=== PATIENT | male | born 1950 | race Caucasian/White ===

== ENCOUNTER 2016-06-10 19:48 | Inpatient (IN) | payer MEDICARE, BC ==
[2016-06-10 20:30] LABS: Hematocrit 31 % (42-52); Hemoglobin 9.3 g/dl (14.0-18.0); Mean Corpuscular HGB Conc 30 g/dl (31-36); Mean Corpuscular Hemoglobin 27 pg (27-31); Mean Corpuscular Volume 89 fL (80-94); Mean Platelet Volume 7 um3 (7.4-10.4); Red Blood Count 3.47 10^6/ul (4.0-5.4); Red Cell Distribution Width 18 % (10.5-15); White Blood Count 8.1 10^3/ul (3.5-10.8)
[2016-06-10 20:41] LABS: ALT < 3 U/L (7-52); AST 6 U/L (13-39); Albumin 2.6 g/dL (3.2-5.2); Alkaline Phosphatase 64 U/L (34-104); Anion Gap 1 mmol/L (2-11); BUN/Creatinine Ratio 9.9 (8-20); Blood Urea Nitrogen 11 mg/dL (6-24); CO2 Carbon Dioxide 36 mmol/L (22-32); Calcium 8.2 mg/dL (8.6-10.3); Chloride 107 mmol/L (101-111); Creatine Kinase 14 U/L (10-223); EGFR Non-African American 66.1 (>60); Globulin 3.1 g/dL (2-4); Glucose 128 mg/dL (70-100); Potassium 3.9 mmol/L (3.5-5.0); Sodium 144 mmol/L (133-145); Total Protein 5.7 g/dL (6.4-8.9)
[2016-06-10 20:46] LABS: Troponin I 0.04 ng/mL (<0.04)
--- NOTE | 2016-06-10 21:01 | RAD ---
INDICATION: Altered mental status COMPARISON: None. TECHNIQUE: Contiguous axial sections of the brain were obtained from the skull base to the vertex without contrast. FINDINGS: The ventricles, cisterns and sulci are within normal limits. There is mild periventricular and subcortical white matter hypoattenuation most consistent with chronic microvascular disease. Otherwise the aguilar-white matter differentiation is adequately maintained and there is no sulcal effacement. No significant focal abnormality or mass effect is present. There is no evidence for intracranial hemorrhage. Coarse atherosclerotic calcifications at the petrous carotid arteries and left greater than right vertebral arteries are noted. No significant focal osseous abnormality is present. The visualized portion of the paranasal sinuses and mastoid air cells appear clear. IMPRESSION: Appearance of chronic microvascular disease as described above without acute intracranial abnormality.
--- NOTE | 2016-06-10 22:04 | RAD ---
INDICATION: Altered mental status COMPARISON: Chest x-ray dated May 14, 2016 TECHNIQUE: Single AP portable view of the chest was obtained. FINDINGS: Image quality is compromised due to the relative inferiority of a portable chest x-ray. There is elevation of the right hemidiaphragm. Linear density at the mid-level right lung is most consistent with fluid in the major fissure. There is [id number] cardiomegaly. Dilated loops of air-filled colon are seen beneath the diaphragm measuring up to 6.7 cm in diameter. IMPRESSION: Persistent cardiomegaly with signs of pulmonary edema as well as dilated loops of colon beneath the right hemidiaphragm measuring 6.7 cm in diameter.
--- NOTE | 2016-06-10 22:41 | RAD ---
INDICATION: Dilated loops of bowel partially visualized on same-day chest x-ray. COMPARISON: Similar examination dated May 10, 2016 TECHNIQUE: 5 views the abdomen were obtained. FINDINGS: Again seen are dilated loops of air-filled small and large bowel. The large bowel measures up to 9.2 cm in diameter while the small bowel measures up to 3.2 cm in diameter. Given differences in technique there does not appear to be significant change when compared to the most recent abdominal x-ray. Incidental note is made of a Karlee filter overlying the location of the IVC. IMPRESSION: AGAIN SEEN ARE DILATED AIR-FILLED LOOPS OF BOWEL WITH NO SUBSTANTIAL CHANGE IN APPEARANCE WHEN COMPARED TO THE MAY 10, 2016 ABDOMEN X-RAY.
[2016-06-10 23:43] LABS: Urine Bacteria Absent (Absent); Urine Bilirubin Negative (Negative); Urine Glucose 1+(50 mg/dL) (Negative); Urine Nitrite Negative (Negative)
[2016-06-11 00:15] LABS: FIO2 40
[2016-06-11 00:23] LABS: PCO2 Arterial 117 mmHg (35-45)
[2016-06-11] MEDS ORDERED: oxyCODONE/Acetamin 5/325 MG* TAB PO PRN ×2 (01:27→09:08)
[2016-06-11] MEDS ORDERED: CEFAZOLIN 2 GM IVPB SCH (01:30)
[2016-06-11] MEDS ORDERED: Enoxaparin(*) 150 MG/ML 1 ML SYRINGE SUBCUT SCH (02:00)
[2016-06-11 02:04] LABS: PCO2 Arterial 87 mmHg (35-45)
[2016-06-11] MEDS: NS 0.9% 1000 ML* 1,000 ML IV SCH ×2 (03:14→14:46)
[2016-06-11] MEDS ORDERED: NS 0.9% 500 ML* 500 ML IV ONE ×2 (03:30→04:00)
--- NOTE | 2016-06-11 04:12 | HP ---
HISTORY AND PHYSICAL: DATE OF ADMISSION: 06/10/16 CHIEF COMPLAINT: Altered mental status. HISTORY OF PRESENT ILLNESS: The patient is a 65-year-old gentleman who was apparently found confused at his [facility] facility. He was sent over, unable to give us any history whatsoever. In the ED, the patient was evaluated and found to have CO2 narcosis with a CO2 level of 117 and placed on BiPAP. PAST MEDICAL HISTORY: The patient has a past medical history significant for a recent admission for MSSA epidural abscess, status post L1 to S1 decompressive laminectomy with abscess evacuation on 05/06/16, MSSA septic left ankle hardware , status post irrigation, debridement, and hardware removal on 05/17/16, MSSA sepsis, traumatic rhabdomyolysis, NSTEMI, a-fib with rapid ventricular response , left upper extremity cephalic vein DVT, PICC associated, urinary retention, generalized deconditioning, a long complicated hospitalization between January 2002 and May 2002 where the patient had hypothermia and treated for hypovolemic shock. The patient was discharged to rehab facility and then had a cardiac arrest for which he had a "stent." Hepatitis B, alcoholic liver cirrhosis, rhabdomyolysis, decubitus ulcer, DVTs, peripheral edema, hypertension , GERD, BPH, Karlee filter. PAST SURGICAL HISTORY: Significant for: 1. Left ankle surgery, status post ORIF. 2. Back injury with impaired gait. 3. Inguinal hernia repair. ALLERGIES: He has no known drug allergies. FAMILY HISTORY: Brother had heart disease with a pacemaker. Two sisters and one other brother alive and well. SOCIAL HISTORY: The patient is unemployed, currently at [facility] facility. He used to live at [place]. He used to drink heavily before 2001. CURRENT MEDICATIONS: Are as follows: 1. Flagyl 500 mg 3 times day. 2. Cephazolin 2 g IV q.8 hours. 3. Warfarin 10 mg daily. 4. Thiamine 100 mg daily. 5. Flomax 0.4 mg daily. 6. Potassium chloride 40 mEq daily. 7. Percocet 5/325 two tabs every 4 hours as needed. 8. Omeprazole 20 mg daily. 9. Metoprolol succinate 200 mg daily with meal. 10. Magnesium oxide 800 mg daily. 11. Lisinopril 10 mg daily. 12. Lactobacillus 1 capsule twice daily. 13. Folic acid 1 mg daily. 14. Lovenox 120 mg subcu q.12. 15. Docusate 100 mg twice daily. 16. Diltiazem 360 mg daily. 17. Digoxin 0.125 mg daily. 18. Benztropine 1 mg daily. REVIEW OF SYSTEMS: Unable to obtain from the patient because of his altered mental status. PHYSICAL EXAMINATION GENERAL: Confused patient, sitting up in bed, in no acute distress. VITAL SIGNS: Heart rate 82 beats per minute, respiratory rate 12 breaths per minute, pulse ox 91%, temperature 99.9. HEENT: Normocephalic, atraumatic. Pupils equal, round, and reactive. He has BiPAP mask on right now. CHEST: Decreased breath sounds bilaterally. CARDIOVASCULAR: S1 and S2 appreciated. ABDOMINAL EXAM: Positive bowel sounds in all 4 quadrants. Soft, nontender, and nondistended. No hepatosplenomegaly. EXTREMITIES: No cyanosis or clubbing. +2 pulses bilaterally. NEURO: He is lethargic on BiPAP. SKIN: No rashes or abnormalities. LABORATORY DATA: INR 2.07, white count 8.1, hemoglobin 9.3, hematocrit 31, platelets 399. Sodium is 144, potassium 3.9, chloride 107, CO2 36, BUN 11, creatinine 1.11, glucose 128, troponin of 0.04. UA +3 wbc's, +3 rbc's, +2 leukocyte esterase. EKG shows normal sinus rhythm at 82 beats per minute, normal axis, no acute ST-T wave changes. Brain CT shows appearance of chronic microvascular disease as described though without acute intracranial abnormality. Chest x-ray interpreted by Radiology as persistent cardiomegaly with signs of pulmonary edema as well as dilated loops of colon beneath the right hemidiaphragm measuring up to 6.7 cm in diameter. Abdominal x-ray, again seen dilated loops of bowel with no substantial change when compared to abdominal x-ray. ASSESSMENT AND PLAN: 1. Hypercapnic respiratory failure. The patient was placed on BiPAP. He is a DNR/DNI, so we will not intubate, but hopefully he will recover from this and do well afterwards. 2. History of DVT as well as A-fib. Continue Coumadin. INR is therapeutic. 3. Hypertension, adequate control. Continue current regimen. 4. History of MSSA infections as noted above. Continue cefazolin and metronidazole. 5. BPH, stable. Continue Flomax. 6. DVT prophylaxis. He is on Coumadin. 7. Fluids, electrolytes, and nutrition: N.p.o., with normal saline as the patient is more alert and awake. 8. The patient is do not resuscitate. TIME SPENT: Over 80 minutes was spent on this H and P; more than 45 minutes was spent in direct [id number] contact with the patient in evaluation, physical exam, counseling, and coordination of care. CC: [place] [id number]/[facility] #: [id number] MTDD
[2016-06-11] MEDS ORDERED: Heparin VIAL(*) 5000 UNITS/ML VIAL (FIVE THOUSAND) SUBCUT SCH (06:00)
[2016-06-11] MEDS ORDERED: Lactobacillus Acidophilu (GG)* 1 CAP CAP PO SCH (06:00)
[2016-06-11] MEDS ORDERED: ceFAZolin 2 GM PREMIX (*) 2 GM/50 ML BAG IVPB SCH (06:00)
[2016-06-11 07:03] LABS: BUN/Creatinine Ratio 8.8 (8-20); Calcium 7.9 mg/dL (8.6-10.3); EGFR African American 56.1 (>60); EGFR Non-African American 43.6 (>60)
[2016-06-11 07:14] LABS: Troponin I 0.05 ng/mL (<0.04)
[2016-06-11] MEDS ORDERED: Omeprazole CAP* 20 MG PO SCH (07:30)
[2016-06-11] MEDS: Potassium Chlor TAB* 20 MEQ TAB.ER PO SCH (08:56)
[2016-06-11] MEDS: Magnesium Oxide TAB* 400 MG PO SCH (08:56)
[2016-06-11] MEDS: Lisinopril TAB* 10 MG PO SCH (08:56)
[2016-06-11] MEDS: Metoprolol Succinate XL TAB* 200 MG TAB.XL PO SCH (08:56)
[2016-06-11] MEDS: Benztropine TAB* 1 MG PO SCH (08:58)
[2016-06-11] MEDS: Diltiazem CD CAP* 180 MG PO SCH (08:58)
[2016-06-11] MEDS: Docusate CAP* 100 MG PO SCH ×2 (08:58→20:32)
[2016-06-11] MEDS: Thiamine TAB* 100 MG TAB PO SCH (08:58)
[2016-06-11] MEDS: Folic Acid TAB* 1 MG PO SCH (08:58)
[2016-06-11] MEDS ORDERED: metroNIDAZOLE TAB* 250 MG PO SCH (09:00)
[2016-06-11] MEDS: Acetaminophen TAB* 325 MG PO PRN ×2 (09:26→17:20)
--- NOTE | 2016-06-11 12:42 | CONS ---
CONSULTATION REPORT: DATE OF CONSULT: 06/11/16 REQUESTING PHYSICIAN: Dr. Burks. CONSULTING SERVICE: Infectious Disease. REASON FOR CONSULT: Encephalopathy. IMPRESSION: 1. Recent admission with lumbar spine epidural abscess and left ankle hardware infection and septic ankle, status post I and D of both locations, with persistent bowel and bladder dysfunction, lower extremity weakness, has been on Ancef at [facility], now with inability to arouse for 24 hours. He had BiPAP overnight and has had improvement. I do not think there is a component of his original infection or new infection that is contributing to his mental change given that he has had improvement with BiPAP and diuresis, seems more to be a primary respiratory issue and hypercapnia. 2. Lumbar epidural abscess, status post debridement with persistent weakness and bowel and bladder dysfunction. 3. Left ankle history of open reduction internal fixation and now Staphylococcus aureus infection of the hardware, osteomyelitis, septic ankle incision that was healing. 4. Cirrhosis. 5. Deep venous thrombosis. 6. History of Karlee filter. 7. Hypoalbuminemia. 8. Acute kidney injury. RECOMMENDATION: 1. Agree with Ancef 2 g but we will decrease to every 12 hours given his GFR of 50. 2. Discontinue Flagyl. 3. Continue monitoring of his abnormal blood test results. He is about day 35 out of 56 of IV antibiotics for his epidural abscess. HISTORY OF PRESENT ILLNESS: This is a 65-year-old man with cirrhosis, history of left ankle fixation after a fracture, admitted with altered mental status. He recently in mid April developed lumbar spine epidural abscess due Staph aureus that was drained by Dr. Yoo that is healing well. His sutures are out and the incision is intact. He was also found to have a left ankle infection at that time and had incision and debridement done by Dr. Brar, removal of some of the hardware the incision is intact, sutures are out, and he denies pain there. He continues to require a Briggs catheter and is incontinent of stool. He does participate in physical therapy at the long term and is moving his legs more, he thinks. He is tolerating the antibiotics well by a PICC line. He has had no fevers, chills, or sweats. He has been eating well in the long term. He is here now but cannot give much of the recent history , because of the mental status change, which was provided instead by his sister and then from review of the medical records. He was found unresponsive at [facility]. He had been afebrile in the days leading up to the event. He was brought here last night and was found to have a white count of 8, bicarb of 36 on a BMP and then on blood gas, the CO2 was 117. He had BiPAP. His pH is increased from 7.09 to 7.2 and the bicarb decreased to 87. He is off BiPAP now this morning, he is awake, oriented, and answering questions and has no complaints. He does not recall the events leading up to his admission. PAST MEDICAL HISTORY: 1. Cirrhosis due to alcoholic liver disease. 2. Left ankle fracture, status post open reduction internal fixation. 3. Lumbar spine MSSA epidural abscess, status post decompression and debridement. 4. Left ankle hardware and septic joint infection, status post incision and debridement, removal of some of the hardware. 5. Atrial fibrillation with rapid ventricular response. 6. Coronary artery disease, history of non-ST elevation NM. 7. History of rhabdomyolysis. 8. Left arm DVT associated with a PICC. 9. Urinary retention requiring Briggs. 10. Hypertension. 11. Gastroesophageal reflux disease. 12. BPH. 13. History of IVC filter. 14. History of inguinal hernia repair. MEDICATIONS: 1. Tylenol. 2. Benztropine. 3. Diltiazem. 4. Digoxin. 5. Folic acid. 6. Lisinopril. 7. Metoprolol. 8. Potassium. 9. Thiamine. 10. Warfarin. 11. Cefazolin 2 g every 8 hours. 12. Flagyl 500 mg by mouth every 12 hours. 13. Oxycodone. ALLERGIES: No known drug allergies. FAMILY HISTORY: No recurrent infections. SOCIAL HISTORY: He has been living at [facility]. He has no travel or sick contacts. REVIEW OF SYSTEMS: All negative except as noted above. PHYSICAL EXAM: Vital Signs: Temperature is 37, heart rate 70, respiratory rate 14, blood pressure 112/54, O2 sat 100% on 5 L. General: He is awake and in no distress. Neurologically, he is oriented x3. Follows all commands. His extremity strength is 3/5 in the quad, tibialis anterior and gastrocnemius bilaterally. There is no lower extremity clonus bilaterally. Neck: Supple without nuchal rigidity. HEENT: There is no conjunctival hemorrhage. He has poor dentition. There are no oral lesions. Neck: Neck is supple without nuchal rigidity. Lymph Nodes: There is no cervical, supraclavicular, inguinal , axillary, or epitrochlear lymphadenopathy. Heart: Regular rate and rhythm without murmurs, rubs, or gallops. Lungs: Clear to auscultation bilaterally. Abdomen: Mildly distended, soft. There are bowel sounds present. There is no rebound or tenderness. Musculoskeletal: There is no spine tenderness to palpation. The lumbar spine incision is intact. The left ankle, there is diffuse edema without erythema. The medial incision is intact. There is no pain with range of motion of the ankle. Skin: There is no rash or splinter hemorrhages. LABORATORY DATA: White blood cell count 8, hemoglobin 9, platelets 399. Creatinine is 1.6 up from 1.1. Troponin is 0.05. Please see impressions and recommendations as outlined above. Thanks for asking me to see Mr. Molina in consultation. [id number]/[facility] #: [id number] MTDD
[2016-06-11] MEDS: Warfarin TAB(*) 1 MG PO SCH (17:20)
[2016-06-11] MEDS: Warfarin TAB(*) 6 MG PO SCH (17:20)
--- NOTE | 2016-06-11 17:34 | PN ---
Subjective Date of Service: 06/11/16 Interval History: HOSPITALIST PROGRESS NOTE Patient seen and examined at bedside. He feels better this AM. Released from BiPAP, alert and awake. Doesn't remember exactly what happened, but as per SNF papers he was noted to be hypoxemic earlier yesterday and it progressed during the day even with supplemental O2, complicated by altered MS. Family History: Unchanged from Admission Social History: Unchanged from Admission Past Medical History: Unchanged from Admission Objective Active Medications: Acetaminophen (Tylenol Tab*) 650 mg PO Q4H PRN PRN Reason: FEVER/PAIN Last Admin: 06/11/16 17:20 Dose: 650 mg Benztropine Mesylate (Cogentin Tab*) 1 mg PO DAILY [facility] Last Admin: 06/11/16 08:58 Dose: 1 mg Digoxin (Lanoxin Tab*) 0.125 mg PO 1700 [facility] Diltiazem HCl (Cardizem Cd Cap*) 360 mg PO DAILY [facility] Last Admin: 06/11/16 08:58 Dose: 360 mg Docusate Sodium (Colace Cap*) 100 mg PO BID [facility] Last Admin: 06/11/16 08:58 Dose: 100 mg Folic Acid (Folvite Tab*) 1 mg PO DAILY [facility] Last Admin: 06/11/16 08:58 Dose: 1 mg Heparin Sodium (Porcine) (Heparin Flush Picc/Ml/Cvc(*)) 1 - 3 ml FLUSH 0600, 1800 J [facility] PRN Reason: Protocol Last Admin: 06/11/16 06:23 Dose: 1 ml Sodium Chloride (Ns 0.9% 1000 Ml*) 1,000 mls @ 100 mls/hr IV PER RATE [facility] Last Admin: 06/11/16 14:46 Dose: 100 mls/hr Cefazolin Sodium/Dextrose (Kefzol Premix(*)) 2 gm in 50 mls @ 100 mls/hr IVPB Q12HR [facility] Lisinopril (Prinivil Tab*) 10 mg PO DAILY [facility] Last Admin: 06/11/16 08:56 Dose: 10 mg Magnesium Oxide (Magox 400 Tab*) 800 mg PO DAILY [facility] Last Admin: 06/11/16 08:56 Dose: 800 mg Metoprolol Succinate (Toprol Xl Tab*) 200 mg PO DAILY WITH MEAL [facility] Last Admin: 06/11/16 08:56 Dose: 200 mg Oxycodone/Acetaminophen (Percocet 5/325 Tab*) 2 tab PO Q4H PRN PRN Reason: PAIN Pharmacy Profile Note (Coumadin Daily Reminder*) 1 note FOLLOW UP 1700 [facility] Last Admin: 06/11/16 17:20 Dose: 1 note Potassium Chloride (Klor Con Er Tab*) 40 meq PO DAILY WITH MEAL [facility] Last Admin: 06/11/16 08:56 Dose: 40 meq Tamsulosin HCl (Flomax Cap*) 0.4 mg PO BEDTIME [facility] Thiamine HCl (Vitamin B-1 Tab*) 100 mg PO DAILY [facility] Last Admin: 06/11/16 08:58 Dose: 100 mg Warfarin Sodium (Coumadin Tab(*)) 6 mg PO DAILY@1700 [facility] PRN Reason: Protocol Last Admin: 06/11/16 17:20 Dose: 6 mg Warfarin Sodium (Coumadin Tab(*)) 1 mg PO DAILY@1700 [facility] Last Admin: 06/11/16 17:20 Dose: 1 mg Vital Signs 06/11/16 06/11/16 06/11/16 15:00 15:19 16:00 Temperature 99.3 F Pulse Rate 75 71 Respiratory 16 15 Rate Blood Pressure 114/60 90/48 (mmHg) O2 Sat by Pulse 94 95 Oximetry Oxygen Devices in Use Now: Simple Face Mask Appearance: Elderly gentleman lying in bed in [facility]. Eyes: No Scleral Icterus Ears/Nose/Mouth/Throat: Mucous Membranes Moist Neck: Trachea Midline Respiratory: Symmetrical Chest Expansion and Respiratory Effort, Clear to Auscultation Cardiovascular: RRR - Normal S1 and S2 Abdominal: NL Sounds; No Tenderness; No Distention Extremities: - - Bilateral LE edema especially on the left, but reports redness is much improved. Neurological: - - AAOx 2 (self and place), SHINE Lines/Tubes/Other Access: Clean, Dry and Intact PICC Line - RUE Nutrition: Taking PO's Result Diagrams: 06/10/16 20:15 06/11/16 06:30 Assess/Plan/Problems-Billing Assessment: Mr. Molina is a 65yo M with a complex PMH of HTN, prior DVT s/p IVC filter, cirrhosis, BPH, GERD, HBV, recent admission for Afib with RVR, NSTEMI, rhabdomyolisis, MSSA lumbar spine epidural abscess, left ankle hardware infection with septic ankle, LUE cephalic vein DVT, urinary retention, admitted with altered MS secondary to hypercapnic respiratory failure. - Patient Problems (1) Altered mental state Comment: - Secondary to hypercapnia. - Initial ABG showed pH 7.09 and CO2 117. After BiPAP it was 7.22 and 87 with improvement of his MS. - Close to baseline this AM. (2) Hypercapnic respiratory failure Comment: - Etiology unclear at this time. - Differential includes fluid overload, infection, oversedation with narcotics. - He does significant peripheral edema and CxR showed signs of pulmonary edema and improved with BiPAP. May pursue gentle diuresis if his BP allows. - Will request ID input re: his infection, but he's been on Cefazolin for more than 30 days. Will panculture and monitor. - Narcotics are less likely as he has not taken a lot at [facility]. (3) DVT (deep venous thrombosis) Comment: - INR is 2.07 - continue Warfarin. (4) Afib Comment: - Continue digoxin and Diltiazem. (5) DVT prophylaxis Comment: - Warfarin. (6) DNR (do not resuscitate) Status and Disposition: Inpatient. Brother and [id number] updated at bedside.
[2016-06-11] MEDS: Digoxin TAB* 0.125 MG PO SCH (18:22)
[2016-06-11] MEDS: ceFAZolin 2 GM PREMIX (*) 2 GM/50 ML BAG IVPB SCH (20:31)
[2016-06-11] MEDS: Tamsulosin CAP* 0.4 MG PO SCH (20:32)
[2016-06-12] MEDS: NS 0.9% 1000 ML* 1,000 ML IV SCH ×3 (00:20→17:17)
[2016-06-12 06:12] LABS: Hematocrit 27 % (42-52); Hemoglobin 8.1 g/dl (14.0-18.0); Mean Corpuscular HGB Conc 31 g/dl (31-36); Mean Corpuscular Hemoglobin 27 pg (27-31); Mean Corpuscular Volume 87 fL (80-94); Mean Platelet Volume 7 um3 (7.4-10.4); Red Blood Count 3.06 10^6/ul (4.0-5.4); Red Cell Distribution Width 18 % (10.5-15); White Blood Count 6.2 10^3/ul (3.5-10.8)
[2016-06-12 06:26] LABS: BUN/Creatinine Ratio 14.3 (8-20); Calcium 7.8 mg/dL (8.6-10.3); EGFR African American 55.3 (>60); Potassium 3.6 mmol/L (3.5-5.0)
[2016-06-12] MEDS ORDERED: Enoxaparin(*) 150 MG/ML 1 ML SYRINGE SUBCUT ONE (08:00)
[2016-06-12] MEDS: Metoprolol Succinate XL TAB* 200 MG TAB.XL PO SCH (08:26)
[2016-06-12] MEDS: Potassium Chlor TAB* 20 MEQ TAB.ER PO SCH (08:26)
[2016-06-12] MEDS: Magnesium Oxide TAB* 400 MG PO SCH (08:29)
[2016-06-12] MEDS: Benztropine TAB* 1 MG PO SCH (08:29)
[2016-06-12] MEDS: Lisinopril TAB* 10 MG PO SCH (08:29)
[2016-06-12] MEDS: Folic Acid TAB* 1 MG PO SCH (08:29)
[2016-06-12] MEDS: Docusate CAP* 100 MG PO SCH ×2 (08:29→20:56)
[2016-06-12] MEDS: Thiamine TAB* 100 MG TAB PO SCH (08:29)
[2016-06-12] MEDS: Diltiazem CD CAP* 180 MG PO SCH (08:30)
[2016-06-12] MEDS: ceFAZolin 2 GM PREMIX (*) 2 GM/50 ML BAG IVPB SCH ×2 (08:32→20:53)
--- NOTE | 2016-06-12 14:11 | PN ---
Subjective Date of Service: 06/12/16 Interval History: HOSPITALIST PROGRESS NOTE Patient seen and examined at bedside. He feels better today, offers no complaints. Pleasantly confused. Family History: Unchanged from Admission Social History: Unchanged from Admission Past Medical History: Unchanged from Admission Objective Active Medications: Acetaminophen (Tylenol Tab*) 650 mg PO Q4H PRN PRN Reason: FEVER/PAIN Last Admin: 06/11/16 17:20 Dose: 650 mg Benztropine Mesylate (Cogentin Tab*) 1 mg PO DAILY [facility] Last Admin: 06/12/16 08:29 Dose: 1 mg Digoxin (Lanoxin Tab*) 0.125 mg PO 1700 [facility] Last Admin: 06/11/16 18:22 Dose: 0.125 mg Diltiazem HCl (Cardizem Cd Cap*) 360 mg PO DAILY [facility] Last Admin: 06/12/16 08:30 Dose: 360 mg Docusate Sodium (Colace Cap*) 100 mg PO BID [facility] Last Admin: 06/12/16 08:29 Dose: 100 mg Folic Acid (Folvite Tab*) 1 mg PO DAILY [facility] Last Admin: 06/12/16 08:29 Dose: 1 mg Heparin Sodium (Porcine) (Heparin Flush Picc/Ml/Cvc(*)) 1 - 3 ml FLUSH 0600, 1800 [facility] PRN Reason: Protocol Last Admin: 06/12/16 05:56 Dose: 1 ml Sodium Chloride (Ns 0.9% 1000 Ml*) 1,000 mls @ 100 mls/hr IV PER RATE [facility] Last Admin: 06/12/16 06:55 Dose: 100 mls/hr Cefazolin Sodium/Dextrose (Kefzol Premix(*)) 2 gm in 50 mls @ 100 mls/hr IVPB Q12HR [facility] Last Admin: 06/12/16 08:32 Dose: 100 mls/hr Magnesium Oxide (Magox 400 Tab*) 800 mg PO DAILY [facility] Last Admin: 06/12/16 08:29 Dose: 800 mg Metoprolol Succinate (Toprol Xl Tab*) 200 mg PO DAILY WITH MEAL [facility] Last Admin: 06/12/16 08:26 Dose: 200 mg Oxycodone/Acetaminophen (Percocet 5/325 Tab*) 2 tab PO Q4H PRN PRN Reason: PAIN Pharmacy Profile Note (Coumadin Daily Reminder*) 1 note FOLLOW UP 1700 [facility] Last Admin: 06/11/16 17:20 Dose: 1 note Potassium Chloride (Klor Con Er Tab*) 40 meq PO DAILY WITH MEAL [facility] Last Admin: 06/12/16 08:26 Dose: 40 meq Tamsulosin HCl (Flomax Cap*) 0.4 mg PO BEDTIME [facility] Last Admin: 06/11/16 20:32 Dose: 0.4 mg Thiamine HCl (Vitamin B-1 Tab*) 100 mg PO DAILY [facility] Last Admin: 06/12/16 08:29 Dose: 100 mg Warfarin Sodium (Coumadin Tab(*)) 6 mg PO DAILY@1700 [facility] PRN Reason: Protocol Last Admin: 06/11/16 17:20 Dose: 6 mg Warfarin Sodium (Coumadin Tab(*)) 1 mg PO DAILY@1700 [facility] Last Admin: 06/11/16 17:20 Dose: 1 mg Vital Signs 06/12/16 06/12/16 06/12/16 06:56 08:00 11:36 Temperature 99.3 F 98.3 F Pulse Rate 80 75 Respiratory 18 18 18 Rate Blood Pressure 108/59 141/54 (mmHg) O2 Sat by Pulse 100 98 Oximetry Oxygen Devices in Use Now: Nasal Cannula Appearance: Elderly gentleman sitting up in bed in [facility]. Eyes: No Scleral Icterus Ears/Nose/Mouth/Throat: Mucous Membranes Moist Neck: Trachea Midline Respiratory: Symmetrical Chest Expansion and Respiratory Effort, Clear to Auscultation Cardiovascular: - - Normal S1 and S2, irregular Abdominal: NL Sounds; No Tenderness; No Distention Extremities: - - Bilateral LE edema Neurological: - - AAOx2 (self and place) Lines/Tubes/Other Access: Clean, Dry and Intact PICC Line Nutrition: Taking PO's Result Diagrams: 06/12/16 05:50 06/12/16 05:50 Assess/Plan/Problems-Billing Assessment: Mr. Molina is a 65yo M with a complex PMH of HTN, prior DVT s/p IVC filter, cirrhosis, BPH, GERD, HBV, recent admission for Afib with RVR, NSTEMI, rhabdomyolisis, MSSA lumbar spine epidural abscess, left ankle hardware infection with septic ankle, LUE cephalic vein DVT, urinary retention, admitted with altered MS secondary to hypercapnic respiratory failure. - Patient Problems (1) OTILIA (acute kidney injury) Comment: - Creatinine trending up, but no clear source. Does not appear to be obstructed, infection seems to be controlled, but urine output is sluggish. - IVF. (2) Altered mental state Comment: - Secondary to hypercapnia. - Initial ABG showed pH 7.09 and CO2 117. After BiPAP it was 7.22 and 87 with improvement of his MS. - At baseline. (3) Hypercapnic respiratory failure Comment: - Etiology unclear at this time. - Differential includes fluid overload, infection, oversedation with narcotics. - He does have significant peripheral edema, CxR showed signs of pulmonary edema and improved with BiPAP. - ID feels his infection is controlled, but concerned with dilated bowel loops - check CT abd/pelvis with PO contrast only. (4) DVT (deep venous thrombosis) Comment: - INR is 1.52 - will give on dose of Lovenox and continue Warfarin. (5) Afib Comment: - Continue digoxin and Diltiazem. (6) DVT prophylaxis Comment: - Warfarin/Lovenox. (7) DNR (do not resuscitate) Status and Disposition: Inpatient.
[2016-06-12] MEDS: Warfarin TAB(*) 6 MG PO SCH (17:18)
[2016-06-12] MEDS: Warfarin TAB(*) 1 MG PO SCH (17:18)
[2016-06-12] MEDS: Digoxin TAB* 0.125 MG PO SCH (17:19)
--- NOTE | 2016-06-12 18:28 | RAD ---
Indication: Evaluate for small bowel obstruction. CT of the abdomen and pelvis was performed without IV contrast administration. Oral contrast was administered. Coronal and sagittal reconstructed images were obtained. The lung bases demonstrate bilateral pleural effusions. Right lower lobe atelectasis is noted. The heart demonstrates no pericardial effusion. Liver is normal in size. There are no focal lesions or intrahepatic duct dilatation although evaluation is limited due to lack of IV contrast. Spleen is normal in size. No adrenal masses are noted. The kidneys demonstrates no hydronephrosis. The gallbladder appears to be partially contracted. There are likely gallstones noted. Pancreas demonstrates no mass or pancreatic duct dilatation. Small bowel demonstrates no abnormal dilatation. CT of the pelvis demonstrates markedly distended colon. Stool is noted in the right colon however fluid is present throughout the remainder of the colon. The exact mural thickness of the colon is not well demonstrated especially in the rectum and sigmoid. Small bowel demonstrates no abnormal dilatation. There is unlikely to be small bowel obstruction noted. The stomach is collapsed. Inferior vena cava filter is in place. Aorta demonstrates no evidence of aneurysmal dilatation. Diffuse edema is noted in the subcutaneous tissue. Urinary bladder is partially collapsed. IMPRESSION: THE SMALL BOWEL DOES NOT APPEAR TO BE ABNORMALLY DILATED. NO ZONE OF TRANSITION IS NOTED. THERE IS DILATATION OF THE LARGE COLON EXTENDING FROM THE RIGHT COLON TO THE RECTUM. FLUID IS NOTED IN THE RECTUM WELL THE SIGMOID COLON. THE PROSTATE IS PROMINENT IN SIZE. THE COLONIC DILATATION IS INCREASED RELATIVE TO PREVIOUS EXAM OF MAY 03, 2016. DIRECT INSPECTION OF THE RECTUM MAY BE INDICATED. LIKELY CHOLELITHIASIS IS NOTED. INFERIOR VENA CAVA FILTER IS IN PLACE.
[2016-06-12] MEDS: Tamsulosin CAP* 0.4 MG PO SCH (20:56)
--- NOTE | 2016-06-12 21:19 | PN ---
Progress Note - Progress Note SOAP: Subjective: DOS: 06/12/16 CC: encephalopathy HPI: 65 year old man with L spine ESTRADA and septic left ankle admitted with encephalopathy likely due to hypercapnia, slowly improving MS. He can't give much history but his sister feels he is slowly continuing to improve. He denies pain, fever, rash, or diarrhea. No abd pain, + flatus, had loose stool today. Objective: [] Vital Signs Temp 37.5 C 06/12/16 15:09 Pulse 74 06/12/16 15:09 Resp 28 06/12/16 15:09 BP 134/58 06/12/16 15:09 Pulse Ox 98 06/12/16 15:09 Intake & Output 06/12/16 06/12/16 06/13/16 06:59 18:59 06:59 Intake Total 1921 390 Output Total 300 300 Balance 1621 90 Weight 269 lb 6.478 oz Intake: IV Fluids 1507 NS (0.9%) 1507 IVPB 114 NS (0.9%) 114 Oral 300 390 Output: Urine 0 Briggs 300 300 Other: # Bowel Movements 0 Gen:NAD Neuro: awake, answers questions, follows commands HEENT:PERRL, MMM NEck:Supple Heart:RRR no murmur Lungs:CTA BL Abd:+BS distended, non tender, soft Skin: no rash MSK: L ankle edema non tender Laboratory Results - last 24 hr 06/12/16 06/12/16 06/12/16 05:50 05:50 05:50 WBC 6.2 RBC 3.06 L Hgb 8.1 L Hct 27 L MCV 87 MCH 27 MCHC 31 RDW 18 H Plt Count 238 MPV 7 L Neut % (Auto) 74.2 Lymph % (Auto) 12.3 L [place] % (Auto) 9.9 H Eos % (Auto) 1.7 Baso % (Auto) 1.9 Absolute Neuts (auto) 4.6 Absolute Lymphs (auto) 0.8 L Absolute Monos (auto) 0.6 Absolute Eos (auto) 0.1 Absolute Basos (auto) 0.1 Absolute Nucleated RBC 0 Nucleated RBC % 0 INR (Anticoag Therapy) 1.52 H Sodium 143 Potassium 3.6 Chloride 111 Carbon Dioxide 28 Anion Gap 4 BUN 23 Creatinine 1.61 H Est GFR ( Amer) 55.3 Est GFR (Non-Af Amer) 43.0 BUN/Creatinine Ratio 14.3 Glucose 94 Calcium 7.8 L Assessment: 1. encephaolpathy, improving 2. abd distension with dilated loops of bowel on KUB ?partial obstruction 3. L spine epidural abscess 4. L septic ankle with hardware infection 5. cirrhosis Plan: 1. continue ancef 2 gm IV Q12hrs as perviously planned; extermination supervisor abx until ankle hardware removed 2. CT A/P with PO contrast Discussed with Dr Burks
[2016-06-13] MEDS: NS 0.9% 1000 ML* 1,000 ML IV SCH ×2 (04:50→07:55)
[2016-06-13 05:53] LABS: Hematocrit 27 % (42-52); Hemoglobin 8.3 g/dl (14.0-18.0); Mean Corpuscular HGB Conc 31 g/dl (31-36); Mean Corpuscular Hemoglobin 27 pg (27-31); Mean Corpuscular Volume 85 fL (80-94); Mean Platelet Volume 7 um3 (7.4-10.4); Red Blood Count 3.11 10^6/ul (4.0-5.4); Red Cell Distribution Width 17 % (10.5-15); White Blood Count 5.1 10^3/ul (3.5-10.8)
[2016-06-13 06:04] LABS: BUN/Creatinine Ratio 22.7 (8-20); Calcium 7.9 mg/dL (8.6-10.3); EGFR African American 85.9 (>60); EGFR Non-African American 66.8 (>60); Potassium 3.5 mmol/L (3.5-5.0)
[2016-06-13] MEDS: ceFAZolin 2 GM PREMIX (*) 2 GM/50 ML BAG IVPB SCH ×2 (07:55→21:20)
[2016-06-13] MEDS: Acetaminophen TAB* 325 MG PO PRN (07:59)
[2016-06-13] MEDS: Magnesium Oxide TAB* 400 MG PO SCH (08:00)
[2016-06-13] MEDS: Benztropine TAB* 1 MG PO SCH (08:00)
[2016-06-13] MEDS: Metoprolol Succinate XL TAB* 200 MG TAB.XL PO SCH (08:00)
[2016-06-13] MEDS: Potassium Chlor TAB* 20 MEQ TAB.ER PO SCH (08:00)
[2016-06-13] MEDS: Folic Acid TAB* 1 MG PO SCH (08:01)
[2016-06-13] MEDS: Diltiazem CD CAP* 180 MG PO SCH (08:01)
[2016-06-13] MEDS: Docusate CAP* 100 MG PO SCH ×2 (08:01→21:16)
[2016-06-13] MEDS: Thiamine TAB* 100 MG TAB PO SCH (08:01)
[2016-06-13] MEDS ORDERED: Warfarin TAB(*) 7.5 MG PO SCH ×2 (17:08→18:15)
--- NOTE | 2016-06-13 17:11 | PN ---
Subjective Date of Service: 06/13/16 Interval History: He denies pain, offers no c/o. Family History: Unchanged from Admission Social History: Unchanged from Admission Past Medical History: Unchanged from Admission Objective Active Medications: Acetaminophen (Tylenol Tab*) 650 mg PO Q4H PRN PRN Reason: FEVER/PAIN Last Admin: 06/13/16 07:59 Dose: 650 mg Benztropine Mesylate (Cogentin Tab*) 1 mg PO DAILY COUNT INCLUDES THE [facility] Last Admin: 06/13/16 08:00 Dose: 1 mg Digoxin (Lanoxin Tab*) 0.125 mg PO 1700 COUNT INCLUDES THE [facility] Last Admin: 06/12/16 17:19 Dose: 0.125 mg Diltiazem HCl (Cardizem Cd Cap*) 360 mg PO DAILY COUNT INCLUDES THE [facility] Last Admin: 06/13/16 08:01 Dose: 360 mg Docusate Sodium (Colace Cap*) 100 mg PO BID COUNT INCLUDES THE [facility] Last Admin: 06/13/16 08:01 Dose: 100 mg Folic Acid (Folvite Tab*) 1 mg PO DAILY COUNT INCLUDES THE [facility] Last Admin: 06/13/16 08:01 Dose: 1 mg Heparin Sodium (Porcine) (Heparin Flush Picc/Ml/Cvc(*)) 1 - 3 ml FLUSH 0600, 1800 COUNT INCLUDES THE [facility] PRN Reason: Protocol Last Admin: 06/13/16 05:39 Dose: 1 ml Cefazolin Sodium/Dextrose (Kefzol Premix(*)) 2 gm in 50 mls @ 100 mls/hr IVPB Q12HR COUNT INCLUDES THE [facility] Last Admin: 06/13/16 07:55 Dose: 100 mls/hr Magnesium Oxide (Magox 400 Tab*) 800 mg PO DAILY COUNT INCLUDES THE [facility] Last Admin: 06/13/16 08:00 Dose: 800 mg Metoprolol Succinate (Toprol Xl Tab*) 200 mg PO DAILY WITH MEAL COUNT INCLUDES THE [facility] Last Admin: 06/13/16 08:00 Dose: 200 mg Oxycodone/Acetaminophen (Percocet 5/325 Tab*) 2 tab PO Q4H PRN PRN Reason: PAIN Pharmacy Profile Note (Coumadin Daily Reminder*) 1 note FOLLOW UP 1700 COUNT INCLUDES THE [facility] Last Admin: 06/12/16 17:18 Dose: 1 note Potassium Chloride (Klor Con Er Tab*) 40 meq PO DAILY WITH MEAL COUNT INCLUDES THE [facility] Last Admin: 06/13/16 08:00 Dose: 40 meq Tamsulosin HCl (Flomax Cap*) 0.4 mg PO BEDTIME COUNT INCLUDES THE [facility] Last Admin: 06/12/16 20:56 Dose: 0.4 mg Thiamine HCl (Vitamin B-1 Tab*) 100 mg PO DAILY COUNT INCLUDES THE [facility] Last Admin: 06/13/16 08:01 Dose: 100 mg Warfarin Sodium (Coumadin Tab(*)) 6 mg PO DAILY@1700 COUNT INCLUDES THE [facility] PRN Reason: Protocol Last Admin: 06/12/16 17:18 Dose: 6 mg Warfarin Sodium (Coumadin Tab(*)) 1 mg PO DAILY@1700 COUNT INCLUDES THE [facility] Last Admin: 06/12/16 17:18 Dose: 1 mg Vital Signs 06/12/16 06/12/16 06/12/16 19:50 20:00 23:22 Temperature 98.7 F 98.3 F Pulse Rate 85 80 Respiratory 20 18 18 Rate Blood Pressure 159/63 134/51 (mmHg) O2 Sat by Pulse 96 97 Oximetry 06/13/16 06/13/16 06/13/16 04:08 07:32 08:00 Temperature 98.8 F 99.5 F Pulse Rate 74 100 Respiratory 18 20 20 Rate Blood Pressure 140/51 149/57 (mmHg) O2 Sat by Pulse 97 97 Oximetry 06/13/16 12:13 Temperature Pulse Rate 71 Respiratory 22 Rate Blood Pressure (mmHg) O2 Sat by Pulse 91 Oximetry Oxygen Devices in Use Now: None Appearance: Alert, partly up in bed. In good spirits. Looks comfortable. Eyes: No Scleral Icterus Respiratory: Symmetrical Chest Expansion and Respiratory Effort, Clear to Auscultation, Clear to Percussion Cardiovascular: NL Sounds; No Murmurs; No JVD, RRR, No Edema, - Extremities: No Edema, No Clubbing, Cyanosis, - Skin: No Nodules or Sclerosis, - - Surgical scar medial L ankle, sl red Neurological: Alert and Oriented x 3, NL Sensation Result Diagrams: 06/13/16 05:42 06/13/16 05:42 Additional Lab and Data: Lab Results 06/10/16 06/10/16 06/10/16 Range/Units 20:15 20:15 20:15 WBC 8.1 (3.5-10.8) 10^3/ul RBC 3.47 L (4.0-5.4) 10^6/ul Hgb 9.3 L (14.0-18.0) g/dl Hct 31 L (42-52) % MCV 89 (80-94) fL MCH 27 (27-31) pg MCHC 30 L (31-36) g/dl RDW 18 H (10.5-15) % Plt Count 399 (150-450) 10^3/ul MPV 7 L (7.4-10.4) um3 Neut % (Auto) 73.0 (38-83) % Lymph % (Auto) 14.2 L (25-47) % [place] % (Auto) 11.4 H (1-9) % Eos % (Auto) 0.2 (0-6) % Baso % (Auto) 1.2 (0-2) % Absolute Neuts (auto) 5.9 (1.5-7.7) 10^3/ul Absolute Lymphs (auto) 1.1 (1.0-4.8) 10^3/ul Absolute Monos (auto) 0.9 H (0-0.8) 10^3/ul Absolute Eos (auto) 0 (0-0.6) 10^3/ul Absolute Basos (auto) 0.1 (0-0.2) 10^3/ul Absolute Nucleated RBC 0.01 10^3/ul Nucleated RBC % 0.1 INR (Anticoag Therapy) (0.89-1.11) Sodium 144 (133-145) mmol/L Potassium 3.9 (3.5-5.0) mmol/L Chloride 107 (101-111) mmol/L Carbon Dioxide 36 H (22-32) mmol/L Anion Gap 1 L (2-11) mmol/L BUN 11 (6-24) mg/dL Creatinine 1.11 (0.67-1.17) mg/dL Est GFR ( Amer) 85.0 (>60) Est GFR (Non-Af Amer) 66.1 (>60) BUN/Creatinine Ratio 9.9 (8-20) Glucose 128 H (70-100) mg/dL Lactic Acid 0.7 (0.5-2.0) mmol/L Calcium 8.2 L (8.6-10.3) mg/dL Total Bilirubin 0.20 (0.2-1.0) mg/dL AST 6 L (13-39) U/L ALT < 3 L (7-52) U/L Alkaline Phosphatase 64 (34-104) U/L Ammonia (16-53) mol/L Total Creatine Kinase 14 (10-223) U/L Troponin I 0.04 H* (<0.04) ng/mL Total Protein 5.7 L (6.4-8.9) g/dL Albumin 2.6 L (3.2-5.2) g/dL Globulin 3.1 (2-4) g/dL Albumin/Globulin Ratio 0.8 L (1-3) 06/10/16 06/10/16 Range/Units 20:15 20:15 WBC (3.5-10.8) 10^3/ul RBC (4.0-5.4) 10^6/ul Hgb (14.0-18.0) g/dl Hct (42-52) % MCV (80-94) fL MCH (27-31) pg MCHC (31-36) g/dl RDW (10.5-15) % Plt Count (150-450) 10^3/ul MPV (7.4-10.4) um3 Neut % (Auto) (38-83) % Lymph % (Auto) (25-47) % [place] % (Auto) (1-9) % Eos % (Auto) (0-6) % Baso % (Auto) (0-2) % Absolute Neuts (auto) (1.5-7.7) 10^3/ul Absolute Lymphs (auto) (1.0-4.8) 10^3/ul Absolute Monos (auto) (0-0.8) 10^3/ul Absolute Eos (auto) (0-0.6) 10^3/ul Absolute Basos (auto) (0-0.2) 10^3/ul Absolute Nucleated RBC 10^3/ul Nucleated RBC % INR (Anticoag Therapy) 2.07 H (0.89-1.11) Sodium (133-145) mmol/L Potassium (3.5-5.0) mmol/L Chloride (101-111) mmol/L Carbon Dioxide (22-32) mmol/L Anion Gap (2-11) mmol/L BUN (6-24) mg/dL Creatinine (0.67-1.17) mg/dL Est GFR ( Amer) (>60) Est GFR (Non-Af Amer) (>60) BUN/Creatinine Ratio (8-20) Glucose (70-100) mg/dL Lactic Acid (0.5-2.0) mmol/L Calcium (8.6-10.3) mg/dL Total Bilirubin (0.2-1.0) mg/dL AST (13-39) U/L ALT (7-52) U/L Alkaline Phosphatase (34-104) U/L Ammonia 64 H (16-53) mol/L Total Creatine Kinase (10-223) U/L Troponin I (<0.04) ng/mL Total Protein (6.4-8.9) g/dL Albumin (3.2-5.2) g/dL Globulin (2-4) g/dL Albumin/Globulin Ratio (1-3) Microbiology and Other Data: Microbiology 06/11/16 09:40 Aerobic Blood Culture - Preliminary Blood Line No Growth Day 1 Anaerobic Blood Culture - Preliminary No Growth Day 1 06/11/16 09:40 Aerobic Blood Culture - Preliminary Blood Line No Growth Day 1 Anaerobic Blood Culture - Preliminary No Growth Day 1 Assess/Plan/Problems-Billing Assessment: Mr. Molina is a 65yo M with a complex PMH of HTN, prior DVT s/p IVC filter, cirrhosis, BPH, GERD, HBV, recent admission for Afib with RVR, NSTEMI, rhabdomyolisis, MSSA lumbar spine epidural abscess, left ankle hardware infection with septic ankle, LUE cephalic vein DVT, urinary retention, admitted with altered MS secondary to hypercapnic respiratory failure. - Patient Problems (1) Altered mental state Current Visit: Yes Status: Acute Code(s): R41.82 - ALTERED MENTAL STATUS, UNSPECIFIED SNOMED Code(s): 345892191 Comment: - Secondary to hypercapnia, etilogy uncertain. - Initial ABG showed pH 7.09 and CO2 117. After BiPAP it was 7.22 and 87 with improvement of his MS. - At baseline. (2) Atrial fibrillation with rapid ventricular response Current Visit: No Status: Acute Priority: High Code(s): I48.91 - UNSPECIFIED ATRIAL FIBRILLATION SNOMED Code(s): 034872465808340 Comment: : rate control with PO Cardizem, off GTT 05/11/16. : continue home metoprolol XL 200 mg daily : continue digoxin : J Fredo, MD neurosurgery authorized anticoagulation : TTE: structurally normal heart with preserved EF 60-65%. increase warfarin to 7.5 mg start 5 PM 06/13/16. (3) OTILIA (acute kidney injury) Current Visit: Yes Status: Resolved Code(s): N17.9 - ACUTE KIDNEY FAILURE, UNSPECIFIED SNOMED Code(s): 91801371 Comment: Resolved. Status and Disposition: Inpatient.
[2016-06-13] MEDS: Digoxin TAB* 0.125 MG PO SCH (18:10)
[2016-06-13] MEDS: Warfarin TAB(*) 6 MG PO SCH (18:20)
[2016-06-13] MEDS: Warfarin TAB(*) 1 MG PO SCH (18:20)
--- NOTE | 2016-06-13 18:51 | CONS ---
CONSULTATION REPORT: DATE OF CONSULT: 06/13/16 REASON FOR CONSULT: Abdominal distention and colonic distention on CT scan. NARRATIVE: Mr. Molina is a complicated 65-year-old gentleman who had a recent hospitalization in April 2016 for an epidural abscess requiring decompressive laminectomy and prolonged antibiotics, sepsis from left ankle infection who presented 3 days ago from the nursing facility for altered mental status. His presentation in the emergency room was notable for a marked CO2 level of 117. He was placed on BiPAP and has improved. His mental status has improved. It was noted that his abdomen seemed more distended. For that reason , he underwent an abdominal CT scan, which I did review showing moderate dilation of the colon diffusely from the cecum to the rectum. The colonic wall appeared uninflamed. There was no obvious obstruction and the small bowel appeared grossly normal. The images were compared to a CT scan from April 2016, which were similar although perhaps slightly more colonic distention is noted. The patient currently denies any abdominal pain. He states that his bowel function has been relatively normal. He has been eating without nausea or vomiting. PAST MEDICAL HISTORY: Includes epidural abscess requiring surgery and prolonged antibiotics, ankle surgery, and infection. History of urinary retention, prior history of coronary artery disease, and DVT. He also presumably was told of alcoholic liver disease many years ago, although states that he has been abstinent and has had no clinical evidence of liver decompensation in the last several years. MEDICATIONS: His preadmission medicines were: 1. Flagyl. 2. Cephazolin. 3. Warfarin. 4. Thiamine. 5. Flomax. 6. Percocet. 7. Omeprazole. 8. Metoprolol. 9. Magnesium oxide. 10. Lisinopril. 11. Lactobacillus. 12. Lovenox. 13. Docusate. 14. Diltiazem. 15. Digoxin. REVIEW OF SYSTEMS: There is no report of GI bleeding, nausea or vomiting. He apparently has been eating well. PHYSICAL EXAM: He is an elderly gentleman lying in bed, looking older than stated age but in no acute distress, appearing comfortable. Temperature is 99.5 , blood pressure is 149/57, heart rate is 71 and regular. He appears clinically euvolemic. He is anicteric. There are no telangiectasis. Cardiac exam reveals distant heart sounds but regular rhythm. Abdomen is slightly distended with slight increase in tympany. There is no rebound or guarding. There is no tenderness. There is no organomegaly. Bowel sounds are normoactive. On rectal exam, there is liquid brown fluid like stool in the rectal vault. There is no lesion. It is guaiac negative. DIAGNOSTIC STUDIES/LAB DATA: Data includes a white count of 5.1, hemoglobin of 8.3. Creatinine of 1.1, alk phos is 64, AST is 6, ALT is less than 3, albumin of 2.6. IMPRESSION: Elderly gentleman with a prolonged hospitalization for sepsis from an epidural abscess requiring laminectomy, left ankle surgery for an infection who has been on prolonged antibiotics who presented with encephalopathy from hypercapnia which has improved. He has had a CT scan showing some mild-to- moderate colonic dilation, which looks similar to April 2016. His presentation is most consistent with colonic pseudoobstruction, which likely is multifactorial given his immobility, his recent prolonged hospitalization. Perhaps there is some neurologic involvement given his laminectomy surgery and urinary retention history. I do not believe there is a mechanical obstruction causing this. I would proceed with electrolyte replacement maintaining a bowel regimen that he is currently on. Of note, he did have a negative C. difficile on this admission. He is relatively asymptomatic despite this, so I do not think any aggressive means such as decompressive colonoscopy would need to take place. [id number]/[facility] #: [id number] ZURI
[2016-06-13] MEDS: Tamsulosin CAP* 0.4 MG PO SCH (21:17)
[2016-06-14 07:03] LABS: Hematocrit 26 % (42-52); Hemoglobin 8.2 g/dl (14.0-18.0); Mean Corpuscular HGB Conc 31 g/dl (31-36); Mean Corpuscular Hemoglobin 27 pg (27-31); Mean Corpuscular Volume 86 fL (80-94); Mean Platelet Volume 7 um3 (7.4-10.4); Red Blood Count 3.07 10^6/ul (4.0-5.4); Red Cell Distribution Width 17 % (10.5-15); White Blood Count 5.3 10^3/ul (3.5-10.8)
[2016-06-14] MEDS: Potassium Chlor TAB* 20 MEQ TAB.ER PO SCH (07:49)
[2016-06-14] MEDS: Benztropine TAB* 1 MG PO SCH (07:50)
[2016-06-14] MEDS: Metoprolol Succinate XL TAB* 200 MG TAB.XL PO SCH (07:50)
[2016-06-14] MEDS: Docusate CAP* 100 MG PO SCH (07:50)
[2016-06-14] MEDS: Thiamine TAB* 100 MG TAB PO SCH (07:50)
[2016-06-14] MEDS: Diltiazem CD CAP* 180 MG PO SCH (07:50)
[2016-06-14] MEDS: Magnesium Oxide TAB* 400 MG PO SCH (07:50)
[2016-06-14] MEDS: Folic Acid TAB* 1 MG PO SCH (07:50)
[2016-06-14] MEDS: ceFAZolin 2 GM PREMIX (*) 2 GM/50 ML BAG IVPB SCH (07:53)
[2016-06-14 07:58] VITALS: BP 143/63
--- NOTE | 2016-06-14 11:36 | DCNOTE ---
Subjective Date of Service: 06/14/16 Interval History: Patient offers no c/o. Family History: Unchanged from Admission Social History: Unchanged from Admission Past Medical History: Unchanged from Admission Objective Active Medications: Acetaminophen (Tylenol Tab*) 650 mg PO Q4H PRN PRN Reason: FEVER/PAIN Last Admin: 06/13/16 07:59 Dose: 650 mg Benztropine Mesylate (Cogentin Tab*) 1 mg PO DAILY COUNTS INCLUDE 234 BEDS AT THE [facility] Last Admin: 06/14/16 07:50 Dose: 1 mg Digoxin (Lanoxin Tab*) 0.125 mg PO 1700 COUNTS INCLUDE 234 BEDS AT THE [facility] Last Admin: 06/13/16 18:10 Dose: 0.125 mg Diltiazem HCl (Cardizem Cd Cap*) 360 mg PO DAILY COUNTS INCLUDE 234 BEDS AT THE [facility] Last Admin: 06/14/16 07:50 Dose: 360 mg Docusate Sodium (Colace Cap*) 100 mg PO BID COUNTS INCLUDE 234 BEDS AT THE [facility] Last Admin: 06/14/16 07:50 Dose: Not Given Folic Acid (Folvite Tab*) 1 mg PO DAILY COUNTS INCLUDE 234 BEDS AT THE [facility] Last Admin: 06/14/16 07:50 Dose: 1 mg Heparin Sodium (Porcine) (Heparin Flush Picc/Ml/Cvc(*)) 1 - 3 ml FLUSH 0600, 1800 COUNTS INCLUDE 234 BEDS AT THE [facility] PRN Reason: Protocol Last Admin: 06/14/16 06:45 Dose: 2 ml Cefazolin Sodium/Dextrose (Kefzol Premix(*)) 2 gm in 50 mls @ 100 mls/hr IVPB Q12HR COUNTS INCLUDE 234 BEDS AT THE [facility] Last Admin: 06/14/16 07:53 Dose: 100 mls/hr Magnesium Oxide (Magox 400 Tab*) 800 mg PO DAILY COUNTS INCLUDE 234 BEDS AT THE [facility] Last Admin: 06/14/16 07:50 Dose: 800 mg Metoprolol Succinate (Toprol Xl Tab*) 200 mg PO DAILY WITH MEAL COUNTS INCLUDE 234 BEDS AT THE [facility] Last Admin: 06/14/16 07:50 Dose: 200 mg Oxycodone/Acetaminophen (Percocet 5/325 Tab*) 2 tab PO Q4H PRN PRN Reason: PAIN Pharmacy Profile Note (Coumadin Daily Reminder*) 1 note FOLLOW UP 1700 COUNTS INCLUDE 234 BEDS AT THE [facility] Last Admin: 06/13/16 18:11 Dose: 1 note Potassium Chloride (Klor Con Er Tab*) 40 meq PO DAILY WITH MEAL COUNTS INCLUDE 234 BEDS AT THE [facility] Last Admin: 06/14/16 07:49 Dose: 40 meq Tamsulosin HCl (Flomax Cap*) 0.4 mg PO BEDTIME COUNTS INCLUDE 234 BEDS AT THE [facility] Last Admin: 06/13/16 21:17 Dose: 0.4 mg Thiamine HCl (Vitamin B-1 Tab*) 100 mg PO DAILY COUNTS INCLUDE 234 BEDS AT THE [facility] Last Admin: 06/14/16 07:50 Dose: 100 mg Warfarin Sodium (Coumadin Tab(*)) 7.5 mg PO 1700 COUNTS INCLUDE 234 BEDS AT THE [facility] PRN Reason: Protocol Last Admin: 06/13/16 18:10 Dose: 7.5 mg Vital Signs 06/13/16 06/13/16 06/13/16 12:13 15:59 18:10 Temperature 98.8 F Pulse Rate 71 63 72 Respiratory 22 18 Rate Blood Pressure 137/54 (mmHg) O2 Sat by Pulse 91 94 Oximetry 06/13/16 06/13/16 06/13/16 20:00 20:17 23:33 Temperature 99.3 F 98.5 F Pulse Rate 50 75 Respiratory 18 17 16 Rate Blood Pressure 172/61 143/60 (mmHg) O2 Sat by Pulse 93 93 Oximetry 06/14/16 06/14/16 07:52 08:38 Temperature 98.3 F Pulse Rate 98 Respiratory 17 20 Rate Blood Pressure 143/63 (mmHg) O2 Sat by Pulse 96 Oximetry Oxygen Devices in Use Now: None Appearance: Alert, supine in bed. In good spirits. Looks comfortable. Eyes: No Scleral Icterus Neck: NL Appearance and Movements; NL JVP, No Thyroid Enlargement, Masses Respiratory: Symmetrical Chest Expansion and Respiratory Effort, Clear to Auscultation, Clear to Percussion Cardiovascular: NL Sounds; No Murmurs; No JVD, RRR, No Edema, - Extremities: No Edema, No Clubbing, Cyanosis Skin: No Nodules or Sclerosis, - - L ankle surgical scar healing well. Lumbar wound dressed. Neurological: Alert and Oriented x 3, NL Sensation Result Diagrams: 06/14/16 06:30 06/13/16 05:42 Additional Lab and Data: Lab Results 06/10/16 06/10/16 06/10/16 Range/Units 20:15 20:15 20:15 WBC 8.1 (3.5-10.8) 10^3/ul RBC 3.47 L (4.0-5.4) 10^6/ul Hgb 9.3 L (14.0-18.0) g/dl Hct 31 L (42-52) % MCV 89 (80-94) fL MCH 27 (27-31) pg MCHC 30 L (31-36) g/dl RDW 18 H (10.5-15) % Plt Count 399 (150-450) 10^3/ul MPV 7 L (7.4-10.4) um3 Neut % (Auto) 73.0 (38-83) % Lymph % (Auto) 14.2 L (25-47) % Kendall % (Auto) 11.4 H (1-9) % Eos % (Auto) 0.2 (0-6) % Baso % (Auto) 1.2 (0-2) % Absolute Neuts (auto) 5.9 (1.5-7.7) 10^3/ul Absolute Lymphs (auto) 1.1 (1.0-4.8) 10^3/ul Absolute Monos (auto) 0.9 H (0-0.8) 10^3/ul Absolute Eos (auto) 0 (0-0.6) 10^3/ul Absolute Basos (auto) 0.1 (0-0.2) 10^3/ul Absolute Nucleated RBC 0.01 10^3/ul Nucleated RBC % 0.1 INR (Anticoag Therapy) (0.89-1.11) Sodium 144 (133-145) mmol/L Potassium 3.9 (3.5-5.0) mmol/L Chloride 107 (101-111) mmol/L Carbon Dioxide 36 H (22-32) mmol/L Anion Gap 1 L (2-11) mmol/L BUN 11 (6-24) mg/dL Creatinine 1.11 (0.67-1.17) mg/dL Est GFR ( Amer) 85.0 (>60) Est GFR (Non-Af Amer) 66.1 (>60) BUN/Creatinine Ratio 9.9 (8-20) Glucose 128 H (70-100) mg/dL Lactic Acid 0.7 (0.5-2.0) mmol/L Calcium 8.2 L (8.6-10.3) mg/dL Total Bilirubin 0.20 (0.2-1.0) mg/dL AST 6 L (13-39) U/L ALT < 3 L (7-52) U/L Alkaline Phosphatase 64 (34-104) U/L Ammonia (16-53) mol/L Total Creatine Kinase 14 (10-223) U/L Troponin I 0.04 H* (<0.04) ng/mL Total Protein 5.7 L (6.4-8.9) g/dL Albumin 2.6 L (3.2-5.2) g/dL Globulin 3.1 (2-4) g/dL Albumin/Globulin Ratio 0.8 L (1-3) 06/10/16 06/10/16 Range/Units 20:15 20:15 WBC (3.5-10.8) 10^3/ul RBC (4.0-5.4) 10^6/ul Hgb (14.0-18.0) g/dl Hct (42-52) % MCV (80-94) fL MCH (27-31) pg MCHC (31-36) g/dl RDW (10.5-15) % Plt Count (150-450) 10^3/ul MPV (7.4-10.4) um3 Neut % (Auto) (38-83) % Lymph % (Auto) (25-47) % Kendall % (Auto) (1-9) % Eos % (Auto) (0-6) % Baso % (Auto) (0-2) % Absolute Neuts (auto) (1.5-7.7) 10^3/ul Absolute Lymphs (auto) (1.0-4.8) 10^3/ul Absolute Monos (auto) (0-0.8) 10^3/ul Absolute Eos (auto) (0-0.6) 10^3/ul Absolute Basos (auto) (0-0.2) 10^3/ul Absolute Nucleated RBC 10^3/ul Nucleated RBC % INR (Anticoag Therapy) 2.07 H (0.89-1.11) Sodium (133-145) mmol/L Potassium (3.5-5.0) mmol/L Chloride (101-111) mmol/L Carbon Dioxide (22-32) mmol/L Anion Gap (2-11) mmol/L BUN (6-24) mg/dL Creatinine (0.67-1.17) mg/dL Est GFR ( Amer) (>60) Est GFR (Non-Af Amer) (>60) BUN/Creatinine Ratio (8-20) Glucose (70-100) mg/dL Lactic Acid (0.5-2.0) mmol/L Calcium (8.6-10.3) mg/dL Total Bilirubin (0.2-1.0) mg/dL AST (13-39) U/L ALT (7-52) U/L Alkaline Phosphatase (34-104) U/L Ammonia 64 H (16-53) mol/L Total Creatine Kinase (10-223) U/L Troponin I (<0.04) ng/mL Total Protein (6.4-8.9) g/dL Albumin (3.2-5.2) g/dL Globulin (2-4) g/dL Albumin/Globulin Ratio (1-3) Microbiology and Other Data: Microbiology 06/11/16 09:40 Aerobic Blood Culture - Preliminary Blood Line No Growth Day 1 Anaerobic Blood Culture - Preliminary No Growth Day 1 06/11/16 09:40 Aerobic Blood Culture - Preliminary Blood Line No Growth Day 1 Anaerobic Blood Culture - Preliminary No Growth Day 1 Assess/Plan/Problems-Billing Assessment: Mr. Molina is a 65yo M with a complex PMH of HTN, prior DVT s/p IVC filter, cirrhosis, BPH, GERD, HBV, recent admission for Afib with RVR, NSTEMI, rhabdomyolisis, MSSA lumbar spine epidural abscess, left ankle hardware infection with septic ankle, LUE cephalic vein DVT, urinary retention, admitted with altered MS secondary to hypercapnic respiratory failure. - Patient Problems (1) Altered mental state Current Visit: Yes Status: Acute Code(s): R41.82 - ALTERED MENTAL STATUS, UNSPECIFIED SNOMED Code(s): 923398385 Comment: - Secondary to hypercapnia, etilogy uncertain. - Initial ABG showed pH 7.09 and CO2 117. After BiPAP it was 7.22 and 87 with improvement of his MS. - At baseline. (2) Atrial fibrillation with rapid ventricular response Current Visit: No Status: Acute Priority: High Code(s): I48.91 - UNSPECIFIED ATRIAL FIBRILLATION SNOMED Code(s): 377388150584466 Comment: : rate control with PO Cardizem, off GTT 05/11/16. : continue home metoprolol XL 200 mg daily : continue digoxin : Elisabeth Yoo MD neurosurgery authorized anticoagulation : TTE: structurally normal heart with preserved EF 60-65%. INR mwf at first at [facility]. increase warfarin to 7.5 mg start 5 PM 06/13/16. (3) OTILIA (acute kidney injury) Current Visit: Yes Status: Resolved Code(s): N17.9 - ACUTE KIDNEY FAILURE, UNSPECIFIED SNOMED Code(s): 44107776 Comment: Resolved. (4) Osteomyelitis Current Visit: No Status: Acute Code(s): M86.9 - OSTEOMYELITIS, UNSPECIFIED SNOMED Code(s): 23379802 Comment: : LLE : septic arthitis L ankle hardware : s/p I&D by Dr. Brar 05/16/16 : IV cefazolin 2 gm q 8 hr based on improved renal fucntion. Status and Disposition: Discharge now to [facility]. Continue cefazolin and metronidazole. INR MWF until stable. Weekly CBC< BMP, CRP. . Fup Howard Pham.
--- NOTE | 2016-06-14 11:40 | PN ---
Progress Note - Progress Note Note: Time spent on discharge 50 minutes.
[2016-06-14] MEDS ORDERED: ceFAZolin 2 GM PREMIX (*) 2 GM/50 ML BAG IVPB SCH (12:00)
--- NOTE | 2016-06-14 14:45 | DS ---
CC: Dr. Edwards TRANSFER SUMMARY: DATE OF ADMISSION: 06/11/16 DATE OF DISCHARGE: 06/14/16 HOSPITAL COURSE: This is a 65-year-old man and was found confused at the nursing facility. He was unable to give any history. He was found to have hypercapnic respiratory failure, he was placed on BiPAP. The initial blood gases showed a pCO2 of 117, his O2 saturation was 95.6%, his pH was 7.09. A repeat blood gas about an hour and half later showed a pH has gone up to 7.22 and pCO2 has come d own to 87. He was able to be weaned off BiPAP quite well. He was on room oxygen by the time of discharge. He was mentating completely normally. His daughter came to visit and confirmed that he is completely b ack to his baseline. The etiology for this is not certain, possibly he is very sensitive to oxygen and oxygen was adminis tered and the flow rate had caused him to retain carbon dioxide. Possibly there was some medication mishap and he got sedated from medication, although that seems not very likely either. He did have some acute kidney injury, which resolved while he was here. His creatinine was 1.59 on admission, it was 1.10 on June 13. His cefazolin dose can go back to his usual dose of 2 g cody ry 8 hours because his renal function seems preserved at this time. I am recommending that oxygen use to be avoided and if needed to be given at the minimum amount to r aise his O2 saturation to 90%. I think he can do without the enoxaparin, particularly as this is a cephalic vein thrombosis were tr eating. His INR has reached 2 at one point. We have increased his warfarin slightly to 7.5 mg aleta y. I think he should have his INR checked 3 times a week until his INR is stable. He should have w eekly CBC, basic metabolic profile, and CRP to help guide treating his infection. FINAL DIAGNOSES: 1. Altered mental state due to hypercarbic respiratory failure. 2. Atrial fibrillation with rapid ventricular response. 3. Acute kidney injury. 4. Osteomyelitis. TRANSFER MEDICATIONS: 1. Acetaminophen 650 mg every 4 hours p.r.n. 2. Benztropine 1 mg daily. 3. Lisinopril 10 mg daily. 4. Omeprazole 20 mg daily. 5. Metoprolol succinate 200 mg daily. 6. Digoxin 0.125 mg daily. 7. Diltiazem CD 365 mg daily. 8. Docusate 200 mg once a day. 9. Folic acid 1 mg daily. 10. Lactobacillus one capsule daily. 11. Magnesium oxide 800 mg daily. 12. Potassium 40 mEq daily. 13. Tamsulosin 0.4 mg daily. 14. Thiamine 100 mg daily. 15. Metronidazole 500 mg t.i.d. 16. Cefazolin 2 g IV every 8 hours. 17. Oxycodone/acetaminophen 5/325 two tablets every 4 hours p.r.n. 18. Warfarin 7 mg daily. [id number]/[facility] #: [id number]
--- NOTE | 2016-06-18 13:05 | ED ---
Genaro Voss Billy, scribed for Dave Posey MD on 06/10/16 at 2023 . Complex/Multi-Sys Presentation - HPI Summary HPI Summary: Patient is a 65 year-old male coming to [facility] from the custodial with a complaint of constant throbbing headache starting "sometime tonight," patient reports. He reports photophobia. He denies any neck pain, fever, CP, SOB, abd pain, or N/V/D. Nursing triage note reports that he arrives with a complaint of AMS ("not acting right, not acting self"), and that his O2 sat was in the 80s, improved after O2. However, AMS remained unchanged with O2. Furthermore, the triage note states that he has decreased urine output that appears dark in color. - History Of Current Complaint Chief Complaint: EDGeneral Time Seen by Provider: 06/10/16 20:07 Hx Obtained From: Patient, Medical Records Onset/Duration: Gradual Onset, Lasting Hours, Still Present Timing: Constant Severity Currently: Moderate Severity Initially: Moderate Character: Typical Headache Associated Signs And Symptoms: Positive: Other - photophobia. Negative: SOB, Chest Pain, Nausea, Vomiting, Diarrhea, Abdominal Pain, Fever - Allergies/Home Medications Allergies/Adverse Reactions: Allergies Allergy/AdvReac Type Severity Reaction Status Date / Time No Known Allergies Allergy Verified 05/03/16 07:21 Home Medications: Home Medications Percocet 5/325 TAB* 2 tab PO Q4HR PRN 06/11/16 [History Confirmed 06/11/16] Warfarin TAB(*) [Coumadin TAB(*)] 7 mg PO DAILY@1700 06/11/16 [History Confirmed 06/11/16] ceFAZolin 2 GM PREMIX(*) [Kefzol PREMIX(*)] 2 gm IVPB Q8H 06/11/16 [History Confirmed 06/11/16] PMH/Surg Hx/FS Hx/Imm Hx Cardiovascular History: Reports: Hx Hypertension Denies: Hx Pacemaker/ICD GI History: Reports: Hx Cirrhosis Sensory History: Denies: Hx Hearing Aid Neurological History: Reports: Other Neuro Impairments/Disorders - head trauma and bleed at [age] years old Psychiatric History: Reports: Hx Substance Abuse - EtOH Denies: Hx Panic Disorder - Surgical History Surgery Procedure, Year, and Place: hernia repair 1985. EVAN IVC FILTER 1.5T ONLY. HEART CATH W/ POSSIBLE STENTING- PT UNSURE IF HE HAD STENTS DONE OR WHERE THEY WERE DONE- APPROVED BY DR SHER FOR THIS EXAM AT 1.5 Infectious Disease History: No Infectious Disease History: Denies: Traveled Outside the [place] in Last 30 Days - Family History Known Family History: Positive: Hypertension - Social History Alcohol Use: history of ETOH abuse Substance Use Type: Reports: None Smoking Status (MU): Never Smoked Tobacco Review of Systems Negative: Fever Positive: Photophobia Negative: Shortness Of Breath, Cough Negative: Abdominal Pain, Vomiting, Diarrhea, Nausea Positive: Headache All Other Systems Reviewed And Are Negative: Yes Physical Exam - Summary Physical Exam Summary: VITAL SIGNS: Reviewed. GENERAL: Patient is an elderly confunsed male who is lying comfortable in the stretcher. Patient is not in any acute respiratory distress. HEAD AND FACE: No signs of trauma. No ecchymosis, hematomas or skull depressions. EYES: PERRLA, EOMI x 2. EARS: Hearing grossly intact. MOUTH: Oropharynx within normal limits. NECK: Supple, trachea is midline, no adenopathy, no JVD, no carotid bruit, no c- spine tenderness, neck with full ROM. No meningeal signs, no Kernig's or brudzinskis signs. CHEST: Symmetric, no tenderness at palpation LUNGS: Clear to auscultation bilaterally. No wheezing or crackles. CVS: Regular rate and rhythm, S1 and S2 present, no murmurs or gallops appreciated. ABDOMEN: Soft, non-tender. No signs of distention. No rebound no guarding, and no masses palpated. Bowel sounds are normal. EXTREMITIES: FROM in all major joints, no edema, no cyanosis or clubbing. NEURO: Alert but not oriented. No acute neurological deficits. Speech is normal and follows commands. SKIN: Dry and warm Triage Information Reviewed: Yes Vital Signs On Initial Exam: Initial Vitals Temp Pulse Resp BP Pulse Ox 98.2 F 70 15 79/43 94 06/10/16 19:55 06/10/16 19:55 06/10/16 19:55 06/10/16 19:55 06/10/16 19:55 Vital Signs Reviewed: Yes Procedures - Additional Procedures Additional Procedures: arterial blood draw - US guided ABG, no complications, 1 attempt. Diagnostics - Vital Signs Vital Signs Temp Pulse Resp BP Pulse Ox 06/10/16 19:55 98.2 F 70 15 79/43 94 - Laboratory Lab Results: Lab Results 06/10/16 06/10/16 06/10/16 Range/Units 20:15 20:15 20:15 WBC 8.1 (3.5-10.8) 10^3/ul RBC 3.47 L (4.0-5.4) 10^6/ul Hgb 9.3 L (14.0-18.0) g/dl Hct 31 L (42-52) % MCV 89 (80-94) fL MCH 27 (27-31) pg MCHC 30 L (31-36) g/dl RDW 18 H (10.5-15) % Plt Count 399 (150-450) 10^3/ul MPV 7 L (7.4-10.4) um3 Neut % (Auto) 73.0 (38-83) % Lymph % (Auto) 14.2 L (25-47) % [place] % (Auto) 11.4 H (1-9) % Eos % (Auto) 0.2 (0-6) % Baso % (Auto) 1.2 (0-2) % Absolute Neuts (auto) 5.9 (1.5-7.7) 10^3/ul Absolute Lymphs (auto) 1.1 (1.0-4.8) 10^3/ul Absolute Monos (auto) 0.9 H (0-0.8) 10^3/ul Absolute Eos (auto) 0 (0-0.6) 10^3/ul Absolute Basos (auto) 0.1 (0-0.2) 10^3/ul Absolute Nucleated RBC 0.01 10^3/ul Nucleated RBC % 0.1 INR (Anticoag Therapy) (0.89-1.11) Sodium 144 (133-145) mmol/L Potassium 3.9 (3.5-5.0) mmol/L Chloride 107 (101-111) mmol/L Carbon Dioxide 36 H (22-32) mmol/L Anion Gap 1 L (2-11) mmol/L BUN 11 (6-24) mg/dL Creatinine 1.11 (0.67-1.17) mg/dL Est GFR ( Amer) 85.0 (>60) Est GFR (Non-Af Amer) 66.1 (>60) BUN/Creatinine Ratio 9.9 (8-20) Glucose 128 H (70-100) mg/dL Lactic Acid 0.7 (0.5-2.0) mmol/L Calcium 8.2 L (8.6-10.3) mg/dL Total Bilirubin 0.20 (0.2-1.0) mg/dL AST 6 L (13-39) U/L ALT < 3 L (7-52) U/L Alkaline Phosphatase 64 (34-104) U/L Ammonia (16-53) mol/L Total Creatine Kinase 14 (10-223) U/L Troponin I 0.04 H* (<0.04) ng/mL Total Protein 5.7 L (6.4-8.9) g/dL Albumin 2.6 L (3.2-5.2) g/dL Globulin 3.1 (2-4) g/dL Albumin/Globulin Ratio 0.8 L (1-3) 06/10/16 06/10/16 Range/Units 20:15 20:15 WBC (3.5-10.8) 10^3/ul RBC (4.0-5.4) 10^6/ul Hgb (14.0-18.0) g/dl Hct (42-52) % MCV (80-94) fL MCH (27-31) pg MCHC (31-36) g/dl RDW (10.5-15) % Plt Count (150-450) 10^3/ul MPV (7.4-10.4) um3 Neut % (Auto) (38-83) % Lymph % (Auto) (25-47) % [place] % (Auto) (1-9) % Eos % (Auto) (0-6) % Baso % (Auto) (0-2) % Absolute Neuts (auto) (1.5-7.7) 10^3/ul Absolute Lymphs (auto) (1.0-4.8) 10^3/ul Absolute Monos (auto) (0-0.8) 10^3/ul Absolute Eos (auto) (0-0.6) 10^3/ul Absolute Basos (auto) (0-0.2) 10^3/ul Absolute Nucleated RBC 10^3/ul Nucleated RBC % INR (Anticoag Therapy) 2.07 H (0.89-1.11) Sodium (133-145) mmol/L Potassium (3.5-5.0) mmol/L Chloride (101-111) mmol/L Carbon Dioxide (22-32) mmol/L Anion Gap (2-11) mmol/L BUN (6-24) mg/dL Creatinine (0.67-1.17) mg/dL Est GFR ( Amer) (>60) Est GFR (Non-Af Amer) (>60) BUN/Creatinine Ratio (8-20) Glucose (70-100) mg/dL Lactic Acid (0.5-2.0) mmol/L Calcium (8.6-10.3) mg/dL Total Bilirubin (0.2-1.0) mg/dL AST (13-39) U/L ALT (7-52) U/L Alkaline Phosphatase (34-104) U/L Ammonia 64 H (16-53) mol/L Total Creatine Kinase (10-223) U/L Troponin I (<0.04) ng/mL Total Protein (6.4-8.9) g/dL Albumin (3.2-5.2) g/dL Globulin (2-4) g/dL Albumin/Globulin Ratio (1-3) Result Diagrams: 06/14/16 06:30 06/13/16 05:42 Lab Statement: Any lab studies that have been ordered have been reviewed, and results considered in the medical decision making process. - Radiology CXR Radiology Interpretation Completed By: Radiologist - Persistent cardiomegaly with signs of pulmonary edema as well as dilated loops of colon beneath the right hemidiaphragm measuring 6.7 cm in diameter. abd xr Radiology Interpretation Completed By: Radiologist - AGAIN SEEN ARE DILATED AIR- FILLED LOOPS OF BOWEL WITH NO SUBSTANTIAL CHANGE IN APPEARANCE WHEN COMPARED TO THE MAY 10, 2016 ABDOMEN X-RAY. - CT brain CT Interpretation Completed By: Radiologist - Appearance of chronic microvascular disease as described above without acute intracranial abnormality. Re-Evaluation - Re-Evaluation First Eval Re-Evaluation Time: 00:04 Comment: See ABG procedure note. Complex Multi-Symp Course/Dx Assessment/Plan: Patient is a 65 year-old male coming to [facility] from the custodial with a complaint of constant throbbing headache starting "sometime tonight, " patient reports. He reports photophobia. He denies any neck pain, fever, CP, SOB, abd pain, or N/V/D. Nursing triage note reports that he arrives with a complaint of AMS ("not acting right, not acting self"), and that his O2 sat was in the 80s, improved after O2. However, AMS remained unchanged with O2. Furthermore, the triage note states that he has decreased urine output that appears dark in color. Test results show Hgb of 9.3 and Hct of 31, which is at his baseline. INR is 2.07. CMP shows glucose of 128, calcium is 8.2, which is his baseline. Ammonia of 64, which is elevated. Trop is 0.04. UA shows no infection. CT brain shows no acute intracranial pathology. CXR shows cardiomegaly with signs of pulmonary edema. Abdominal x-ray shows dilated loops of the bowel without substantial change compared to 05/10/16. I discussed my physical exam findings with Dr. Hill who will be admitting him to his services for further workup and management. - Diagnoses Differential Diagnoses/HQI/PQRI: CVA, Urinary Tract Infection Provider Diagnoses: Mental status change, Oxygen desaturation - Physician Notifications Discussed Care Of Patient With: Dr. Hill (hospitalist) @ 0009: accepts admission. He will follow up with ABG results. Discharge - Discharge Plan Condition: Improved Disposition: ADMITTED TO [facility] documentation as recorded by the Genaro arreguin Billy accurately reflects the service I personally performed and the decisions made by me, Dave Posey MD.
== END 2016-06-14 14:15 | disposition home or self-care (01) | DRG 189 ==
LOC: ED 19:48 → ICU 06-11 01:14 → MED 06-12 06:11
PROVIDERS: ADMIT Internal Medicine; ATTEND Internal Medicine
PROC: 5A09457 Assistance with Respiratory Ventilation, 24-96 Consecutive Hours, Continuous Positive Airway Pressure (ICD-10-PCS; principal; 2016-06-11)
DX: J96.02 Acute respiratory failure with hypercapnia (principal); N17.9 Acute kidney failure, unspecified; G93.40 Encephalopathy, unspecified; I48.91 Unspecified atrial fibrillation; M86.9 Osteomyelitis, unspecified; I82.612 Acute embolism and thrombosis of superficial veins of left upper extremity; E88.09 Other disorders of plasma-protein metabolism, not elsewhere classified; K70.30 Alcoholic cirrhosis of liver without ascites; R41.82 Altered mental status, unspecified; K21.9 Gastro-esophageal reflux disease without esophagitis; N40.1 Benign prostatic hyperplasia with lower urinary tract symptoms; R33.8 Other retention of urine; I25.10 Atherosclerotic heart disease of native coronary artery without angina pectoris; I11.9 Hypertensive heart disease without heart failure; Z66 Do not resuscitate; Z82.49 Family history of ischemic heart disease and other diseases of the circulatory system; Z79.01 Long term (current) use of anticoagulants; I25.2 Old myocardial infarction; Z79.899 Other long term (current) drug therapy
CPT/HCPCS: 36415; 36600; 70450; 71010; 74000; 74176; 80048; 80053; 80162; 81003; 81015; 82140; 82550; 82803; 83605; 84443; 84484; 85025; 85610; 87040; 87086; 87493; 93005; 94660; 94760; A9270-GY; J0690; J1650

== ENCOUNTER 2016-07-11 13:19 | Inpatient (IN) | payer MEDICARE, BC ==
[2016-07-11] MEDS ORDERED: NS 0.9% 1000 ML* 2,000 ML IV ONE (14:24)
[2016-07-11] MEDS ORDERED: Levofloxacin 750 MG IVPREMIX(* 750 MG/150 ML BAG IVPB ONE (14:24)
--- NOTE | 2016-07-11 14:40 | RAD ---
HISTORY: Sepsis COMPARISONS: June 10, 2016 VIEWS:1: Single frontal portable view of the chest at 2:21 PM FINDINGS: LINES AND TUBES: None. CARDIOMEDIASTINAL SILHOUETTE: The cardiomediastinal silhouette is stable. PLEURA: The costophrenic angles are sharp. No pleural abnormalities are noted. LUNG PARENCHYMA: The lung volumes are low. The lungs are clear accounting for the phase of respiration. ABDOMEN: Again noted is gaseous distention of bowel BONES AND SOFT TISSUES: No bone or soft tissue abnormalities are noted. IMPRESSION: LOW LUNG VOLUMES. NO ACTIVE CARDIOPULMONARY DISEASE.
[2016-07-11 15:09] LABS: Troponin I 0.04 ng/mL (<0.04)
[2016-07-11] MEDS ORDERED: Ondansetron INJ* 2 MG/ML VIAL IV PRN (16:16)
[2016-07-11] MEDS ORDERED: Acetaminophen TAB* 325 MG PO PRN (16:16)
[2016-07-11] MEDS ORDERED: NS 0.9% 1000 ML* 1,000 ML IV ONE (16:16)
[2016-07-11] MEDS ORDERED: oxyCODONE TAB* 5 MG TAB PO PRN (16:21)
[2016-07-11] MEDS ORDERED: NS 0.9% 1000 ML* 1,000 ML IV SCH (16:30)
[2016-07-11 16:33] LABS: Urine Bacteria 2+ (Absent); Urine Bilirubin Negative (Negative); Urine Glucose Negative (Negative); Urine Nitrite Negative (Negative)
[2016-07-11] MEDS ORDERED: Warfarin TAB(*) 6 MG PO SCH (17:00)
[2016-07-11] MEDS ORDERED: Piperac/Tazob 3.375 gm in NS* 3.375 GM/100 ML BAG IVPB ONE ×2 (17:00→20:15)
[2016-07-11 17:40] LABS: Hematocrit 25 % (42-52); Hemoglobin 7.7 g/dl (14.0-18.0); Mean Corpuscular HGB Conc 31 g/dl (31-36); Mean Corpuscular Hemoglobin 24 pg (27-31); Mean Corpuscular Volume 78 fL (80-94); Mean Platelet Volume 7 um3 (7.4-10.4); Red Blood Count 3.17 10^6/ul (4.0-5.4); Red Cell Distribution Width 18 % (10.5-15); White Blood Count 14.7 10^3/ul (3.5-10.8)
[2016-07-11 17:43] LABS: Digoxin 1.8 ng/ml (0.8-2.0)
[2016-07-11 17:59] LABS: Albumin 2.5 g/dL (3.2-5.2); BUN/Creatinine Ratio 25.1 (8-20); Calcium 8.2 mg/dL (8.6-10.3); EGFR African American 35.8 (>60); EGFR Non-African American 27.8 (>60); Globulin 3.4 g/dL (2-4); Potassium 4.4 mmol/L (3.5-5.0); Total Bilirubin 0.6 mg/dL (0.2-1.0); Total Protein 5.9 g/dL (6.4-8.9)
[2016-07-11] MEDS ORDERED: Vancomycin(*) 1,500 MG in NS 0.9% 250 ML* 250 ML IVPB ONE (18:00)
[2016-07-11] MEDS ORDERED: Diltiazem TAB* 60 MG PO SCH (18:00)
[2016-07-11 18:02] LABS: Troponin I 0.04 ng/mL (<0.04)
[2016-07-11] MEDS ORDERED: Norepinephrine 16MCG/ML IVPRE* 4,000 MCG/250 ML BAG IV ONE (20:25)
[2016-07-11] MEDS ORDERED: Tamsulosin CAP* 0.4 MG PO SCH (21:00)
[2016-07-11] MEDS ORDERED: Metoprolol Tartrate TAB* 100 MG TAB PO SCH (21:00)
[2016-07-11] MEDS ORDERED: Piperac/Tazob 3.375 gm in NS* 3.375 GM/100 ML BAG IVPB SCH (21:00)
[2016-07-11] MEDS: Ascorbic Acid TAB* 500 MG PO SCH (21:30)
[2016-07-11] MEDS: Warfarin TAB(*) 4 MG PO ONE ×2 (21:30→21:52)
[2016-07-11] MEDS: Warfarin TAB(*) 2.5 MG PO ONE ×2 (21:31→21:51)
[2016-07-11] MEDS: Norepinephrine 16MCG/ML IVPRE* 4,000 MCG/250 ML BAG IV SCH (21:32)
[2016-07-11] MEDS ORDERED: Vancomycin per Pharmacy* NOTE FOLLOW UP PRN (21:59)
[2016-07-11] MEDS ORDERED: Heparin VIAL(*) 5000 UNITS/ML VIAL (FIVE THOUSAND) SUBCUT SCH (22:00)
--- NOTE | 2016-07-11 23:07 | PN ---
Progress Note - Progress Note Note: Surgery Progress: (patient seen w/ Dr. Thapa at ~ 1845) S: Asked to see this 65 yo male long term facility patient re: sacral decubitus in relation to his admission for w/u and treatment for sepsis. He was apparently found to have a high temperature when he presented to Wound clinic and was therefore sent to the ED. His hx was obtained largely from his chart record, including his recent admission from 06/10- 06/14/16. He has a sacral decubitus of unknown duration to us. We were asked to evaluate in regard to his sepsis. O: Vital Signs - 8 hr 07/11/16 07/11/16 07/11/16 14:57 15:00 16:00 Temperature Pulse Rate 72 101 109 Respiratory Rate Blood Pressure 68/36 67/41 (mmHg) O2 Sat by Pulse 79 92 87 Oximetry 07/11/16 07/11/16 07/11/16 16:25 16:40 16:45 Temperature Pulse Rate 99 Respiratory Rate Blood Pressure 60/28 74/40 (mmHg) O2 Sat by Pulse 95 Oximetry 07/11/16 07/11/16 07/11/16 17:00 17:30 18:10 Temperature 101.2 F Pulse Rate 108 99 Respiratory 31 30 Rate Blood Pressure 85/47 82/40 90/71 (mmHg) O2 Sat by Pulse 93 93 Oximetry 07/11/16 18:15 Temperature 100.1 F Pulse Rate 100 Respiratory 20 Rate Blood Pressure 82/40 (mmHg) O2 Sat by Pulse Oximetry PE: limited to the lumbosacral area, where there is a large open wound, est measurements of 10 x 10 cm x depth of 6-8 cm. There is slight undermining to the Left, but no apparent tracking. The wound base is clean, without evidence of infection. There is some tenderness to palp. Labs: Laboratory Tests 07/11/16 07/11/16 07/11/16 14:35 17:30 17:30 WBC 14.7 H Hgb 7.7 L Hct 25 L Neut % (Auto) 93.9 H BUN Creatinine Lactic Acid 2.6 H* 2.1 H* AST Alkaline Phosphatase Troponin I Albumin 07/11/16 07/11/16 17:35 20:49 WBC Hgb Hct Neut % (Auto) BUN 59 H Creatinine 2.35 H Lactic Acid AST 58 H Alkaline Phosphatase 245 H Troponin I 0.04 H* Albumin 2.5 L Imp: large sacral decubitus w/o active infection (though patient has apparently been receiving antibiotics recently) P: no need for surgical debridement and at present would be contraindication as patient is anticoagulated and is moderately protein-malnourished. Will order saline-moist dressings. Recall prn.
[2016-07-12] MEDS ORDERED: NS 0.9% 1000 ML* 1,000 ML IV ONE (00:15)
[2016-07-12] MEDS: Piperac/Tazob 3.375 gm in NS* 3.375 GM/100 ML BAG IVPB SCH ×3 (01:00→16:50)
[2016-07-12] MEDS: Norepinephrine 16MCG/ML IVPRE* 4,000 MCG/250 ML BAG IV SCH ×3 (01:00→07:54)
[2016-07-12] MEDS: NS 0.9% 1000 ML* 1,000 ML IV SCH ×3 (01:33→11:30)
[2016-07-12 06:10] LABS: Hematocrit 24 % (42-52); Hemoglobin 7.3 g/dl (14.0-18.0); Mean Corpuscular HGB Conc 31 g/dl (31-36); Mean Corpuscular Hemoglobin 24 pg (27-31); Mean Corpuscular Volume 78 fL (80-94); Mean Platelet Volume 7 um3 (7.4-10.4); Red Blood Count 3.02 10^6/ul (4.0-5.4); Red Cell Distribution Width 19 % (10.5-15); White Blood Count 16.9 10^3/ul (3.5-10.8)
[2016-07-12 06:26] LABS: BUN/Creatinine Ratio 30.3 (8-20); C Reactive Protein 250.86 mg/L (< 5.00); Calcium 7.7 mg/dL (8.6-10.3); EGFR African American 49.3 (>60); EGFR Non-African American 38.3 (>60); Potassium 3.3 mmol/L (3.5-5.0)
[2016-07-12] MEDS ORDERED: Omeprazole CAP* 20 MG PO SCH (07:30)
--- NOTE | 2016-07-12 07:54 | RAD ---
CLINICAL HISTORY: Pressure ulcer, fever COMPARISON: June 12, 2016 TECHNIQUE: Multiple contiguous axial CT scans were obtained of the abdomen and pelvis, without intravenous contrast enhancement. Coronal and sagittal multiplanar reformations are submitted for review. Oral contrast was not administered. FINDINGS: The study is limited by the lack of intravenous contrast. This limits evaluation of the solid organs and vasculature. LUNG BASES: The lung bases are clear. LIVER: The liver is normal in shape, size, contour, and attenuation. BILE DUCTS: There is no intrahepatic or extrahepatic biliary dilatation. GALLBLADDER: The gallbladder is normal, without pericholecystic inflammatory change. PANCREAS: The pancreas is normal, without mass or ductal dilatation. SPLEEN: Normal in size and appearance. UPPER GI TRACT: Evaluation of the gastrointestinal tract is limited by incomplete gastric distention. The upper GI tract is unremarkable. SMALL BOWEL AND MESENTERY: The small bowel is normal in contour, course, and caliber. There is no obstruction or dilatation. COLON: There is diffuse distention of the colon ADRENALS: Normal bilaterally. KIDNEYS: The kidneys are normal in shape, size, contour, and axis. There is no hydronephrosis or nephrolithiasis. BLADDER: The bladder is collapsed around a Godoy catheter. There is proximal thickening of the bladder wall. PELVIC ORGANS: The prostate gland is normal. The seminal vesicles are symmetric. AORTA: The aorta is normal. IVC: IVC filter is noted. A left femoral venous catheter is noted with the tip at the level of the common femoral vein LYMPH NODES: There is no lymphadenopathy by size criteria. ABDOMINAL WALL: There is a small amount of subcutaneous gas in the left inguinal region, likely related to vascular access. BONES AND SOFT TISSUES: Degenerative changes are noted. Again noted is soft tissue edema with defect in the sacrum consistent with history of decubitus ulcer. There is partial erosion of the first coccygeal vertebral body suggestive of osteomyelitis OTHER: None IMPRESSION: 1. DIFFUSE DISTENTION OF THE COLON SUGGESTIVE OF COLONIC PSEUDOOBSTRUCTION.. 2. QUESTIONABLE MILD THICKENING OF THE BLADDER WALL. THE BLADDER IS COLLAPSED ROUNDED GODOY CATHETER WHICH LIMITS EVALUATION. 3. THERE IS A SOFT TISSUE ULCER ALONG THE SACRUM CONSISTENT WITH THE HISTORY OF DECUBITUS ULCER. THERE IS EROSION OF THE FIRST COCCYGEAL VERTEBRAL BODY, CONCERNING FOR OSTEOMYELITIS
[2016-07-12] MEDS ORDERED: Vancomycin(*) 1,000 MG in NS 0.9% 250 ML* 250 ML IVPB SCH (08:30)
[2016-07-12] MEDS: Benztropine TAB* 1 MG PO SCH (08:30)
[2016-07-12] MEDS: Magnesium Oxide TAB* 400 MG PO SCH (08:30)
[2016-07-12] MEDS: Thiamine TAB* 100 MG TAB PO SCH (08:30)
--- NOTE | 2016-07-12 12:43 | HP ---
HISTORY AND PHYSICAL: DATE OF ADMISSION: 07/11/16 PRIMARY CARE PROVIDER: Dr. Joya ATTENDING PHYSICIAN WHILE IN THE HOSPITAL: Mita Higginbotham DO * (report dictated by Radha Altamirano NP) CHIEF COMPLAINT: Fever. HISTORY OF PRESENT ILLNESS: Mr. Molina is a 65-year-old male patient with very complex medical history. He was recently in the hospital from May 05 to and he was found to have an epidural abscess. It was I and D'ed. He also had removal of 2 screws from his ankle hardware; this was felt to be seated. He underwent a prolonged hospital stay. He was discharged to [facility]. He came back in May for altered mental status, again thought to be related to narcotics in addition to this CO2 retention. He recovered back to [facility]. Unfortunately, he developed fevers over the last day as far as we know. The patient apparently has finished his IV antibiotics. He was supposed to have 10 more days of IV antibiotics according to the sister and he lost his PICC line when he was in [facility], came out as he got it caught on equipment, he went on 30 days of p.o. antibiotics. Unfortunately though, he developed a pressure ulcer that has evolved into a stage IV ulcer. He was going to [facility] today to have this evaluated and to have his chronic wound on his left ankle evaluated. Unfortunately while he was there, it was noted that he had fever of 103 and with immediate concern he was sent to the ER. The patient states he is not having any back pain, only hurts when he moves. He denies any ankle pain. Currently, he says that the pain is not as bad as when it was in May. He denies any nausea, vomiting, or diarrhea. He says he has been having 1 loose stool a day. He denies any abdominal discomfort. The patient states that there was concern because of the fever, he came in and the hospital service was asked to evaluate. He had labs this morning which showed a WBC of 2.4, down from his baseline and CRP going up, so this is obvious source of infection and whilst in the ER, when he first came, his pressures were noted to be in 100 and then it was noted that his blood pressures were down into the 60s and again we were asked to evaluate for sepsis and septic shock. PAST MEDICAL HISTORY: Significant for: 1. Epidural abscess. 2. Sepsis. 3. Rhabdomyolysis. 4. NSTEMI. 5. AFib. 6. Left upper extremity DVT. 7. Urinary retention. 8. Hepatitis B. 9. Cirrhosis. 10. Decubitus ulcer. 11. Peripheral edema. 12. Hypertension. 13. GERD. 14. BPH. PAST SURGICAL HISTORY: 1. He has an L1-S4 decompression laminectomy. 2. He also had a status post removal of ankle hardware. 3. Karlee filter placement. 4. Inguinal hernia repair. HOME MEDICATIONS: According to [facility] notes include: 1. Oxycodone 5 to 10 mg every 4 hours as needed. 2. Zinc 220 mg p.o. daily. 3. Warfarin 6.5 mg p.o. at bedtime. 4. Vitamin B 100 mg daily. 5. Flomax 0.4 mg daily. 6. Potassium chloride 40 mEq p.o. t.i.d. 7. Omeprazole 20 mg a day. 8. Metoprolol succinate 200 mg p.o. daily with meal. 9. Zaroxolyn 5 mg daily. 10. Laxative 1 powder p.o. daily as needed. 11. Mag ox 800 mg p.o. daily. 12. Lisinopril 10 mg a day. 13. Lactulose 30 cc p.o. t.i.d. 14. Folic acid 1 mg p.o. daily. 15. Ferrous sulfate 325 mg p.o. daily. 16. Diltiazem 360 mg p.o. daily. 17. Digoxin 187.5 mcg p.o. daily. 18. Vitamin B12 1000 mcg p.o. daily. 19. Vitamin D 2000 units daily. 20. Keflex 500 mg p.o. t.i.d. 21. Bumex 5 mg daily. 22. Cogentin 1 mg p.o. daily. 23. Vitamin C 500 mg daily. 24. Immuno acids 15 cc p.o. b.i.d. 25. Tylenol 650 every 4 hours as needed. ALLERGIES: Include no known drug allergies. FAMILY HISTORY: Reviewed and noncontributory. SOCIAL HISTORY: He is a former smoker. He resides at [facility]. He does not drink alcohol. Surrogate decision maker is his sister. REVIEW OF SYSTEMS: There is a documented fever. He denied having any double vision. There is no ear discharge. He denies having any rhinorrhea. There is no sore throat. No thyroid enlargement. He denies having any chest pain. There is no orthopnea. There is no nocturnal dyspnea. There is no abdominal pain. There is no nausea. No vomiting. He denied any dysuria. There was hematuria. There is no frequency. No loss of consciousness. No pruritus. There are skin ulcerations per my HPI. Review of 14 systems completed, all others were negative. PHYSICAL EXAMINATION GENERAL: At this time, Mr. Molina is a 65-year-old male patient. He appears to be chronically ill-appearing patient. He is sitting in the ER stretcher. He does not appear to be in any acute distress. He is awake and alert with that blood pressure. VITAL SIGNS: Last blood pressure I had manually was 62/40, his pulse was 109, respirations were 18, his O2 sat last when documented was 87%, but there was a poor waveform and his most recent one was 96%, and temperature 101. HEENT: Head is atraumatic, normocephalic. Eyes: Sclerae anicteric. NECK: Supple. Throat: Oral mucosa appears to be dry. No oropharyngeal erythema. LUNGS: Clear to auscultation bilaterally. HEART: Sounds S1, S2. Irregularly irregular rate. No murmurs, rubs, or gallops. ABDOMEN: Soft, flat, nontender. Bowel sounds were present. EXTREMITIES: Pulses were 2+ throughout. He does have lower extremity weakness. He did have +2 pitting edema. NEUROLOGIC: He is awake, he is alert, and he is oriented to self and place, confused with time. Speech is clear. SKIN: He has significant stage IV pressure ulcer to his sacrum that is approximately 4 inches deep. He has a stage II ulcer to his left ankle. He has stage 2 ulcer to the left ankle. DIAGNOSTIC STUDIES/LAB DATA: His labs from this morning revealed WBC 2.4, RBC at 3.49, hemoglobin 8.6, hematocrit 29, and platelet count of 220. His INR from the 13th was 2.06. His sodium this morning was 136, potassium 4.8, chloride 104, bicarb 21, BUN 51, creatinine 1.74 which is up from his baseline and baseline creatinine is about 0.86, and his lactic was 2.6. CRP was up to 237. His troponin 0.04. Urine from today showed 3+ leukocyte esterase, 3+ wbc, 2+ bacteria. Digoxin level is pending. He had a chest x-ray obtained today and an EKG is pending, which showed low lung volume, no active cardiopulmonary disease. Old medical records were reviewed. ASSESSMENT AND PLAN: Mr. Molina is a 65-year-old male patient with multiple medical problems coming into the ER today with complaints of fever, now found to have a significant decubitus ulcer. The hospital service is asked to evaluate for admission, he will be admitted under inpatient status for ICU. 1. Septic shock: Again, unfortunately in the ER, he did receive 1 L of fluid, but his IV infiltrate and his blood pressures now are ranging in the rate of 60s. We will place a central line in the ED. The plan is to give him 2 more liters wide open and then if he does not fluid respond with his blood pressure, I will go ahead and put him on Levophed. I have a call out for the Foreclosure Clerk to discuss the case with him. I am going to have put him on Zosyn. I think the source of this is from his decubitus ulcer. I am placing a consult to surgery. In addition to this, I am going to get a CT of the abdomen and pelvis. I am also going to check the lumbar spine again when he is stable to make sure he does not need any more I and Ds and to assess for recurrence of abscess. In addition to this, he does appear to have again multisystem organ dysfunction. His troponin is up and appears to be ARF. I did touch base with Dr. Lawrence who will be evaluating the patient. Again, my suspicion is the source is most likely from his decubitus. Blood cultures will be sent. Lactic acid will be repeated. It was 2.6. 2. History of epidural abscess: Again, he did have the an I and D. I do want to reevaluate this and to make sure there has been recollection. 3. Acute renal failure: At this point, we will get a FENa. We will hydrate him. I suspect this is related to his sepsis. There maybe a component of acute tubular necrosis. Monitor. 4. Atrial fibrillation: His rate right now is around 100. We will continue with digoxin if able but need to use caution give his ARF. He need to hold his metoprolol and his Cardizem obviously with the hypertension. 5. Left upper extremity DVT: INR was 2.0 four days ago. I am waiting for repeat INR. 6. Urinary retention: Continue Briggs. 7. Hepatitis B with cirrhosis: He can follow up with his primary. Not an active issue currently. 8. Decubitus ulcer: I did again put a consult out for Surgery. I also placed a Wound consult. 9. Hypertension: Again, hold medications in the setting of acute illness. 10. GERD: Continue the patient on PPI therapy. 11. Benign prostatic hyperplasia: Continue Flomax. 12. Code status: He does wish to be a DNR/DNI. 13. Fluids, electrolytes, and nutrition: For the time being, I am going to go ahead and keep him n.p.o. except for meds. Normal saline going at 125 mL an hour. TIME SPENT: Time spent on the admission and critical care time was approximately 90 minutes; greater than half the time was spent [id number] with the patient obtaining my history and physical, the other half time is spent going over the plan of care with the patient and implementing plan of care. I discussed the plan of care with my attending, Dr. Higginbotham. She is in agreement. RADHA ALTAMIRANO NP CC: Dr. Joya; Dr. Lawrence* [id number]/CPS #: [id number] MTDD
[2016-07-12] MEDS ORDERED: NS 0.9% 1000 ML* 1,000 ML IV SCH (13:58)
--- NOTE | 2016-07-12 16:14 | PN ---
Critical Care Services: Clinical condition improving - now off levophed. Is alert, and appears comfortable. Vital Signs: Temp Pulse Resp BP SpO2 FiO2 97.9 F 99 23 87/50 98 Physical Exam: Gen:Alert, oriented Lungs:clear Skin: Large decubitus ulcer over sacrum - depth about 4 inches. No purulence. Extremities: 1+edema lower extremities Fluid Balance (Past 24 Hours): 07/12/16 07/13/16 06:59 06:59 Intake Total 6535 2630 Output Total 2450 2525 Balance +4085 105 Weight 235 lb Intake: IV Fluids 5496 1648 NS bolus 3984 Normal Saline Continuous 1062 1648 Vancomycin 250 Zosyn 200 IVPB 217 Normal Saline Continuous 217 Medicated IV 622 382 Levophed 622 382 Oral 200 600 Output: Briggs 2450 2525 Labs: 07/12/16 07/12/16 05:50 05:50 WBC 16.9 Hgb 7.3 L Hct 24 L Plt Count 223 Sodium 136 Potassium 3.3 Chloride 106 Carbon Dioxide 19 Anion Gap 11 BUN 54 Creatinine 1.78 Glucose 110 H Calcium 7.7 L C-Reactive Protein 250.86 Studies: Blood cultures: Gram-positive cocci in 2 bottles. Urine culture: > 100,000 colonies of pseudomonas aeruginosa. Note: On empiric Rx with Zosyn. Nutrition: Oral feedings Impression: Gram-positive bacteremia and pseudomonas UTI. Both organisms should be covered by Zosyn (unless the gram-positive organisms are MRSA). No evidence of septic shock at the present time. Plan: Continue present management plan. Can probably send to the floor in AM tomorrow.
[2016-07-12] MEDS: Ascorbic Acid TAB* 500 MG PO SCH (17:42)
[2016-07-13] MEDS: Piperac/Tazob 3.375 gm in NS* 3.375 GM/100 ML BAG IVPB SCH ×4 (00:01→23:48)
[2016-07-13 05:57] LABS: Hematocrit 21 % (42-52); Hemoglobin 6.7 g/dl (14.0-18.0); Mean Corpuscular HGB Conc 32 g/dl (31-36); Mean Corpuscular Hemoglobin 25 pg (27-31); Mean Corpuscular Volume 78 fL (80-94); Mean Platelet Volume 7 um3 (7.4-10.4); Red Blood Count 2.72 10^6/ul (4.0-5.4); Red Cell Distribution Width 18 % (10.5-15); White Blood Count 10.9 10^3/ul (3.5-10.8)
[2016-07-13 06:04] LABS: Comments Flag Yes
[2016-07-13 06:26] LABS: BUN/Creatinine Ratio 36.9 (8-20); Calcium 7.6 mg/dL (8.6-10.3); EGFR African American 92.6 (>60)
[2016-07-13 06:32] LABS: Potassium 2.4 mmol/L (3.5-5.0)
[2016-07-13] MEDS ORDERED: Vancomycin Trough Check NOTE FOLLOW UP ONE (08:30)
--- NOTE | 2016-07-13 08:51 | PN ---
Critical Care Services: Patient continues to do well, without evidence of progressive sepsis. Remains off levophed. Is on Zosyn for pseudomonas UTI and gram-positive bacteremia ( probable strep-like organism) Vital Signs: Temp Pulse Resp BP SpO2 FiO2 98.3 F 95 18 107/53 93 Physical Exam: Gen:Alert, oriented, and appears comfortable. Lungs:clear Back: Large sacral decubitus ulcer (about 10 cm across and 8 cm deep) that appears clean, and is without purulence. Extremities: 2-3 cm ulcer on medial aspect of right ankle. Fluid Balance (Past 24 Hours): 07/13/16 06:59 Intake Total 4197 Output Total 4575 Balance -378 Weight 220 lb Intake: IV Fluids 1648 NS bolus Normal Saline Continuous 1648 IVPB 827 Normal Saline Continuous 627 Zosyn 200 Medicated IV 382 Levophed 382 Oral 1340 Output: Urine 700 Briggs 3875 Other: # Bowel Movements 1 Estimated Stool Amount Large Labs: 0 07/13/16 07/13/16 05:40 05:40 WBC 10.9 Hgb 6.7 Hct 21 Plt Count 192 INR 3.39 Sodium 141 Potassium 2.4 Chloride 111 Carbon Dioxide 22 Anion Gap 8 BUN 38 Creatinine 1.03 Glucose 99 Calcium 7.6 L Studies: None today Nutrition: Oral diet. Impression: 1. Sepsis (multiple sources) controlled with antibiotics. 2. Large sacral decubitus ulcer, which gets soiled by stool (patient is incontinent as a result of a spinal cord injury) 3. Hypokalemia - probable K depletion unmasked by hydration. 4. Severe anemia - Probably due to chronic inflammation (from recurrent infections). Plan: 1. De-escalate antibiotic Rx per reported sensitivities. 2. Wet-to-dry dressing for skin ulcers. Consult wound care service about vacuum Rx for sacral decubitus ulcer. Also needs consideration of change in facility for outpatient care. 3. Aggressive K replacement. 4. Transfuse to Hb > 7 g/dL.
[2016-07-13] MEDS: Famotidine TAB* 20 MG PO SCH (09:27)
[2016-07-13] MEDS: Benztropine TAB* 1 MG PO SCH (09:27)
[2016-07-13] MEDS: Magnesium Oxide TAB* 400 MG PO SCH (09:27)
[2016-07-13] MEDS: KCL 20 MEQ/100 ML IVPREMIX* 20 MEQ/100 ML BAG IV SCH ×2 (09:27→10:38)
[2016-07-13] MEDS: Thiamine TAB* 100 MG TAB PO SCH (09:27)
[2016-07-13] MEDS: Potassium Chlor TAB* 20 MEQ TAB.ER PO SCH ×2 (09:28→20:34)
[2016-07-13] MEDS: Ascorbic Acid TAB* 500 MG PO SCH (17:34)
--- NOTE | 2016-07-13 23:49 | ED ---
Lincoln Voss Erika, scribed for Lyle Parson MD on 07/11/16 at 1442 . Complex/Multi-Sys Presentation - HPI Summary HPI Summary: Patient is a 65-year-old male presenting to the ED with a CC of fever. History is provided by pt's sister, who has power of collections attorney. She reports that patient lives at [facility]. Patient had surgery a few weeks ago due to a spinal infection - since then, patient has been unable to walk and has bowel incontinence. Yesterday, sister noted that patient had bloody urine in his bag, which [facility] stated had been present. Today, patient went to the wound clinic for wounds on his back, buttocks and left leg, but had a fever of 103 and pallor so they would not see patient and referred him here. Currently, sister states pt is nauseated. Patient had blood work performed this morning. - History Of Current Complaint Chief Complaint: EDGeneral Time Seen by Provider: 07/11/16 14:05 Hx Obtained From: Patient, Family/Heat Seal Operator - Sister - power of collections attorney Onset/Duration: Gradual Onset, Lasting Days, Still Present Timing: Constant Severity Currently: Moderate Associated Signs And Symptoms: Positive: Fever, Other - hematuria Related History: Other - Wound care - Allergies/Home Medications Allergies/Adverse Reactions: Allergies Allergy/AdvReac Type Severity Reaction Status Date / Time No Known Allergies Allergy Verified 05/03/16 07:21 Home Medications: Home Medications Amino Acids-Protein Hydrolysat [Pro-Stat] 15 ml PO BID 07/11/16 [History Confirmed 07/11/16] Ascorbic Acid TAB* [Vitamin C TAB*] 500 mg PO QPM 07/11/16 [History Confirmed 07/11/16] Bumetanide TAB* [Bumex TAB*] 5 mg PO Q48HR 07/11/16 [History Confirmed 07/11/16] Cephalexin CAP* [Keflex CAP*] 500 mg PO TID 07/11/16 [History Confirmed 07/11/16 ] Cholecalciferol TAB* [Vitamin D TAB*] 2,000 units PO DAILY 07/11/16 [History Confirmed 07/11/16] Cyanocobalamin TAB* [Vitamin B12 TAB*] 1,000 mcg PO DAILY 07/11/16 [History Confirmed 07/11/16] Digoxin [Lanoxin] 187.5 mcg PO QPM 07/11/16 [History Confirmed 07/11/16] Ferrous Sulfate TAB* 325 mg PO DAILY 07/11/16 [History Confirmed 07/11/16] Lactulose* 30 ml PO TID 07/11/16 [History Confirmed 07/11/16] Methylcellulose (Laxative) [Citrucel Fiber Laxative] 1 pow PO DAILY PRN [History Confirmed 07/11/16] Metolazone TAB* [Zaroxolyn TAB*] 5 mg PO DAILY 07/11/16 [History Confirmed 07/11] Metoprolol Succinate XL TAB* [Toprol XL TAB*] 200 mg PO DAILY WITH MEAL [History Confirmed 07/11/16] Potassium Chlor TAB* [Klor Con ER TAB*] 40 meq PO TID 07/11/16 [History Confirmed 07/11/16] Warfarin TAB(*) [Coumadin TAB(*)] 6.5 mg PO BEDTIME 07/11/16 [History Confirmed 07/11/16] Zinc Sulfate CAP* [Zinc-220 CAP*] 220 mg PO DAILY 07/11/16 [History Confirmed ] oxyCODONE TAB* [Roxycodone TAB 5 mg*] 5 mg PO Q4H PRN 07/11/16 [History Confirmed 07/11/16] oxyCODONE TAB* [Roxycodone TAB 5 mg*] 10 mg PO Q4H PRN 07/11/16 [History Confirmed 07/11/16] PMH/Surg Hx/FS Hx/Imm Hx Cardiovascular History: Reports: Hx Deep Vein Thrombosis - L arm, Hx Hypertension Denies: Hx Pacemaker/ICD GI History: Reports: Hx Cirrhosis, Hx Gastroesophageal Reflux Disease History: Reports: Hx Benign Prostatic Hyperplasia Musculoskeletal History: Reports: Hx Back Problems - laminectomy Apr 2016 Sensory History: Denies: Hx Hearing Aid Neurological History: Reports: Other Neuro Impairments/Disorders - head trauma and bleed at [age] years old. Laminectomy Apr 2016 Psychiatric History: Reports: Hx Substance Abuse - EtOH Denies: Hx Panic Disorder - Surgical History Surgery Procedure, Year, and Place: hernia repair 1985. [facility] IVC FILTER 1.5T ONLY. HEART CATH W/ POSSIBLE STENTING- PT UNSURE IF HE HAD STENTS DONE OR WHERE THEY WERE DONE- APPROVED BY DR SHER FOR THIS EXAM AT 1.5. L1-S1 laminectomy, evacuation of abscess 05/06/16. I+D L ankle, removal of hardware 04/2016 Hx Anesthesia Reactions: No Infectious Disease History: Reports: Hx Hepatitis - Hepatitis B Denies: Traveled Outside the [place] in Last 30 Days - Family History Known Family History: Positive: Hypertension - Social History Lives: At [facility] - [facility] Substance Use Type: Reports: None Smoking Status (MU): Never Smoked Tobacco Review of Systems Positive: Fever Positive: Other - bowel incontinence since surgery Positive: hematuria Musculoskeletal: Other - unable to walk since surgery Skin: Other - Wounds @ buttocks, back, LLE All Other Systems Reviewed And Are Negative: Yes Physical Exam Triage Information Reviewed: Yes Vital Signs On Initial Exam: Initial Vitals Temp Pulse Resp BP Pulse Ox 99 F 110 20 125/100 96 07/11/16 13:22 07/11/16 13:22 07/11/16 13:22 07/11/16 13:22 07/11/16 13:22 Vital Signs Reviewed: Yes Appearance: Positive: Well-Appearing, No Pain Distress Skin: Positive: Warm, Skin Color Reflects Adequate Perfusion, Dry, Pale, Other - Medial malleolar ulcer to the left ankle that is healing well. Decubiti that do not appear infected Head/Face: Positive: Normal Head/Face Inspection Eyes: Positive: Normal ENT: Positive: Normal ENT inspection Neck: Positive: Supple, Nontender Respiratory/Lung Sounds: Positive: Clear to Auscultation, Breath Sounds Present Cardiovascular: Positive: Tachycardia - at 110 bpm Abdomen Description: Positive: Nontender, Soft Bowel Sounds: Positive: Present Musculoskeletal: Positive: Normal Neurological: Positive: Normal Psychiatric: Positive: Affect/Mood Appropriate - [place] Coma Scale Coma Scale Total: 15 Procedures - Central Line Central Line Lumen: triple - U/S guided Central Line Procedure: betadine prep, sterile drapes applied, sterile dressing applied Central Line Position: femoral (L) Anesthesia: Lidocaine cc's of anesthesia: 2 Complications: none Central Line Post Position: sutured, good blood return Diagnostics - Vital Signs Vital Signs Temp Pulse Resp BP Pulse Ox 07/11/16 14:00 117 93 07/11/16 13:55 77 93 07/11/16 13:53 130/111 07/11/16 13:22 99 F 110 20 125/100 96 - Laboratory Lab Results: Lab Results 07/11/16 07/11/16 07/11/16 Range/Units 14:35 14:35 16:15 Lactic Acid 2.6 H* (0.5-2.0) mmol/L Troponin I 0.04 H* (<0.04) ng/mL Urine Color Yellow Urine Appearance Cloudy Urine pH 5.0 (5-9) Ur Specific [place] 1.008 L (1.010-1.030) Urine Protein 1+(30 mg/dl) H (Negative) Urine Ketones Negative (Negative) Urine Blood 3+ H (Negative) Urine Nitrate Negative (Negative) Urine Bilirubin Negative (Negative) Urine Urobilinogen Negative (Negative) Ur Leukocyte Esterase 3+ H (Negative) Urine WBC (Auto) 3+(>20/hpf) H (Absent) Urine RBC (Auto) 3+(>10/hpf) H (Absent) Urine Bacteria 2+ H (Absent) Urine Glucose Negative (Negative) Urine Ascorbic Acid * H (Negative) Digoxin 1.8 (0.8-2.0) ng/ml Result Diagrams: 07/13/16 05:40 07/13/16 05:40 Lab Statement: Any lab studies that have been ordered have been reviewed, and results considered in the medical decision making process. - Radiology CXR Radiology Interpretation Completed By: Radiologist - IMPRESSION: LOW LUNG VOLUMES. NO ACTIVE CARDIOPULMONARY DISEASE. Complex Multi-Symp Course/Dx Course Of Treatment: Mr. Molina presented febrile but lookng good. He had several skin ulcers as will as a chronic indwelling gilmore and he was given IV fluids and antibiotics while being W/U'd. He dropped his pressure suddnely in the ED and I placed a central line for resuscitation. - Diagnoses Provider Diagnoses: Severe sepsis - Physician Notifications Discussed Care Of Patient With: Dr. Higginbotham (hospitalist) at 14:35 - agrees to admit - Critical Care Time Critical Care Time: 30-74 min Discharge - Discharge Plan Condition: Stable Disposition: ADMITTED TO [facility] documentation as recorded by the Lincoln arreguin Erika accurately reflects the service I personally performed and the decisions made by vt, Lyle Parson MD.
[2016-07-14 04:59] LABS: Hematocrit 24 % (42-52); Hemoglobin 7.7 g/dl (14.0-18.0); Mean Corpuscular HGB Conc 32 g/dl (31-36); Mean Corpuscular Hemoglobin 25 pg (27-31); Mean Corpuscular Volume 78 fL (80-94); Mean Platelet Volume 7 um3 (7.4-10.4); Red Blood Count 3.09 10^6/ul (4.0-5.4); Red Cell Distribution Width 18 % (10.5-15)
[2016-07-14 05:16] LABS: BUN/Creatinine Ratio 26.3 (8-20); Calcium 7.7 mg/dL (8.6-10.3); EGFR Non-African American 96.4 (>60)
[2016-07-14 05:17] LABS: Potassium 2.6 mmol/L (3.5-5.0)
[2016-07-14] MEDS: Thiamine TAB* 100 MG TAB PO SCH (08:13)
[2016-07-14] MEDS: Magnesium Oxide TAB* 400 MG PO SCH (08:15)
[2016-07-14] MEDS: Benztropine TAB* 1 MG PO SCH (08:15)
[2016-07-14] MEDS: Potassium Chlor TAB* 20 MEQ TAB.ER PO SCH (08:15)
[2016-07-14] MEDS: Famotidine TAB* 20 MG PO SCH (08:15)
[2016-07-14] MEDS: Piperac/Tazob 3.375 gm in NS* 3.375 GM/100 ML BAG IVPB SCH ×2 (08:16→16:41)
[2016-07-14] MEDS ORDERED: Potassium Chlor TAB* 20 MEQ TAB.ER PO ONE (08:38)
--- NOTE | 2016-07-14 10:38 | PN ---
Subjective Date of Service: 07/14/16 Interval History: Patient seen this morning. He has no complaints. Sitting in bed comfortably. Denies chest pain, SOB. Ate breakfast with no issues. Family not pleased with care at [facility], do not want him to go back there. Family History: Unchanged from Admission Social History: Unchanged from Admission Past Medical History: Unchanged from Admission Objective Active Medications: Ascorbic Acid (Vitamin C Tab*) 500 mg PO QPM J CARLOS Benztropine Mesylate (Cogentin Tab*) 1 mg PO DAILY J CARLOS Diltiazem HCl (Cardizem Tab*) 60 mg PO Q6HR J CARLOS Famotidine (Pepcid Tab*) 20 mg PO DAILY J CARLOS Heparin Sodium (Porcine) (Heparin Flush Picc/Ml/Cvc(*)) 1 ml FLUSH 0600,1800 J CARLOS Piperacillin Sod/Tazobactam Sod (Zosyn 3.375 Gm In Ns Premix*) 3.375 gm in 100 mls @ 25 mls/hr IVPB 0015,0815,1615 J CARLOS Magnesium Oxide (Magox 400 Tab*) 800 mg PO DAILY JCARLOS Ondansetron HCl (Zofran Inj*) 4 mg IV Q6H PRN Oxycodone HCl (Roxycodone Tab*) 5 mg PO Q4H PRN Pharmacy Profile Note (Coumadin Daily Reminder*) 1 note FOLLOW UP 1700 [facility] Thiamine HCl (Vitamin B-1 Tab*) 100 mg PO DAILY [facility] Vital Signs 07/13/16 07/13/16 07/13/16 11:00 11:31 12:00 Temperature 99.8 F Pulse Rate 104 102 99 Respiratory 25 18 16 Rate Blood Pressure 119/66 106/57 113/63 (mmHg) O2 Sat by Pulse 98 97 99 Oximetry 07/14/16 07/14/16 07/14/16 07:17 08:00 10:15 Temperature 98.2 F Pulse Rate 97 Respiratory 20 20 Rate Blood Pressure 120/65 (mmHg) O2 Sat by Pulse 98 98 98 Oximetry Oxygen Devices in Use Now: None Appearance: Elderly, M, laying in bed in NAD Eyes: No Scleral Icterus Ears/Nose/Mouth/Throat: Mucous Membranes Moist Neck: NL Appearance and Movements; NL JVP Respiratory: Symmetrical Chest Expansion and Respiratory Effort, Clear to Auscultation Cardiovascular: NL Sounds; No Murmurs; No JVD, RRR Abdominal: NL Sounds; No Tenderness; No Distention Lymphatic: No Cervical Adenopathy Extremities: - - R ankle edema Skin: - - R medial ankle ulcer, clean based, no signs of infection, deep sacral ulcer, no purulence, no clear signs of infection Neurological: - - Alert, oriented Result Diagrams: 07/14/16 04:30 07/14/16 04:30 Additional Lab and Data: Microbiology and Other Data: Microbiology 07/11/16 23:29 Aerobic Blood Culture - Final Blood Venous Enterococcus Faecium Anaerobic Blood Culture - Final Enterococcus Faecium Blood Culture - Final Blood MRSA/MSSA (PCR) - Final Mrsa Negative S.aureus Negative 07/11/16 17:40 Influenza Types A,B Antigen (KASSY) - Final Nasal Specimen received for Influenza A/B Molecular testing Assess/Plan/Problems-Billing Assessment: Sepsis 2/2 pseudomonal UTI/bacteremia, enterococcal bacteremia, OTILIA in a 65 yo M with hx of chronic decubitus ulcer, epidural abscess, DOROTHY ankle hardware infection, AFib on coumadin, NSTEMI, HTN, GERD, BPH - Patient Problems (1) Sepsis Current Visit: No Comment: Pseudomonas growing in urine and blood, Enterococcus growing in BCx (amp resistant). Patient currently on Zosyn with clinical improvement. Will ask Dr. Lawrence to evaluate the patient to determine if we need additional therapy (Vanco), will order 1x dose now. Recheck BCx. CT scan on admission shows ?osteo. Will need to remove femoral line. Peripheral or midline today. (2) Sacral decubitus ulcer Current Visit: Yes Comment: Appreciate surgery assistance. Wound does not appear infected. Continue saline-moist dressings as per surgery. (3) Afib Current Visit: No Comment: Will resume Digoxin. Start Diltiazem 60 mg q6h ( lower than home dose). Continue coumadin. (4) OTILIA (acute kidney injury) Current Visit: No Comment: Resolved. (5) Urinary retention Current Visit: Yes Comment: Continue gilmore. Resume tamsulosin. (6) HTN (hypertension) Current Visit: Yes Comment: Continue Diltiazem as above. Holding remainder of outpatient BP meds/diuretics. (7) DVT prophylaxis Current Visit: No Comment: Warfarin
[2016-07-14] MEDS ORDERED: Vancomycin per Pharmacy* NOTE FOLLOW UP PRN (10:51)
[2016-07-14] MEDS ORDERED: Vancomycin(*) 1,500 MG in NS 0.9% 250 ML* 250 ML IVPB ONE (11:00)
[2016-07-14] MEDS ORDERED: Vancomycin(*) 1,000 MG in NS 0.9% 250 ML* 250 ML IVPB SCH (11:00)
[2016-07-14] MEDS: Diltiazem TAB* 60 MG PO SCH ×2 (12:55→16:41)
[2016-07-14] MEDS: Digoxin TAB* 0.125 MG PO SCH (16:40)
[2016-07-14] MEDS: Ascorbic Acid TAB* 500 MG PO SCH (16:41)
[2016-07-14] MEDS: Cefepime(*) 2 GM in NS 0.9% 50 ML* 50 ML IVPB SCH (18:21)
[2016-07-14] MEDS: Tamsulosin CAP* 0.4 MG PO SCH (20:22)
[2016-07-14] MEDS: Vancomycin(*) 1,250 MG in NS 0.9% 250 ML* 250 ML IVPB SCH (20:23)
--- NOTE | 2016-07-14 21:32 | CONS ---
CONSULTATION REPORT: DATE OF CONSULT: 07/14/16 REQUESTING PROVIDER: Lito Altamirano NP CONSULTING SERVICE: Infectious Disease. REASON FOR CONSULT: Septic shock. IMPRESSION: 1. Admitted with septic shock, requiring pressors, pseudomonas and enterococcus in the blood. 2. Chronic Briggs catheter with pseudomonas and Enterococcus faecium in the urine, likely source of his infection. 3. Stage IV decubitus ulcer, new without significant erythema or drainage. 4. Recent methicillin-sensitive Staphylococcus aureus septic left ankle fixation hardware infection, status post incision and debridement. 5. Recent lumbar epidural abscess, status post incision and debridement, due to methicillin-sensitive Staphylococcus aureus, on long-term cefazolin. 6. Elevated C-reactive protein. 7. Cirrhosis. 8. Leukocytosis. 9. Acute kidney injury. RECOMMENDATIONS: 1. Continue vancomycin goal trough 15 to 20 to cover the Enterococcus faecium which is vancomycin sensitive and to cover the pseudomonas. We will change the Zosyn to cefepime because of possible increased risk of acute kidney injury with a combination of vancomycin and Zosyn long-term. Wound Center consultation for the right decubitus ulcer. They had followed him as well for his left ankle recent ulceration. 2. To recheck the blood cultures tomorrow. HISTORY OF PRESENT ILLNESS: This is a 65-year-old male with a recent admission for decompression of the lumbar spine for a staphylococcal epidural abscess and debridement of the left ankle and removal of some hardware for a septic ankle at the similar time. He had been in [facility] on long-term IV antibiotics though developed a decubitus ulcer, was being followed at wound clinic for that. On the , he became less responsive, was febrile, was sent to the ER, found to have a white blood cell count of 14,000. Blood cultures were taken with results as above. Urine culture as well. CT of the abdomen and pelvis was done that showed a decubitus ulcer over the right sacrum, with distention of the colon and mild thickening of the bladder wall, and a Briggs catheter. He was started on vancomycin and Zosyn. He required pressors and fluid resuscitation. The pressors have tapered off, blood pressure has stabilized. He is afebrile now and his leukocytosis is improving. He denies any pain. He is oriented. PAST MEDICAL HISTORY: 1. Staphylococcal epidural abscess, status post decompression. 2. Left ankle fixation hardware infection, status post incision and debridement , removal of hardware. 3. Cirrhosis. 4. Coronary disease. 5. Hepatitis B infection. 6. Decubitus ulcer. 7. Peripheral edema. 8. Hypertension. 9. Gastroesophageal reflux disease. 10. Benign prostatic hypertrophy. 11. Status post Karlee filter placement. 12. Status post inguinal hernia repair. MEDICATIONS: 1. Vitamin C. 2. Benztropine. 3. Digoxin. 4. Diltiazem. 5. Famotidine. 6. Heparin flushes. 7. Magnesium oxide. 8. Zofran. 9. Zosyn 3.375 g every 8 hours. 10. Potassium. 11. Tamsulosin. 12. Thiamine. 13. Vancomycin 1250 mg every 8 hours. 14. Warfarin. 15. Oxycodone. ALLERGIES: No known drug allergies. FAMILY HISTORY: No recurrent infections. SOCIAL HISTORY: He has been living in the nursing facility. No travel. No sick contacts. REVIEW OF SYSTEMS: All negative except as noted above. PHYSICAL EXAM: Vital Signs: Temperature 36.6, heart rate 100, respiratory rate 20, blood pressure 130/70, O2 sat 99% on room air. General: He is awake and oriented x3. Neurologically, moves all extremities. No lower extremity clonus bilaterally. Sensation is intact to light touch in the lower extremities bilaterally. HEENT: There is no conjunctival hemorrhage. Oropharynx without lesions. Neck is supple without nuchal rigidity. Lymph Nodes: There is no cervical or supraclavicular, inguinal, axillary, or epitrochlear lymphadenopathy. Heart: Regular rate and rhythm without murmurs, rubs, or gallops. Lungs are clear to auscultation bilaterally. Abdomen: Soft , nontender, nondistended without hepatosplenomegaly. Skin: There is no rash or splinter hemorrhages. Musculoskeletal: There is no spine tenderness to palpation. Left ankle has diffuse edema without tenderness or crepitus with a medial 1.5-cm leg ulceration without surrounding erythema. There is a 5-cm diameter right sacral ulceration with underlying palpable bone and some fibrinous slough. No surrounding erythema. LABORATORY DATA: White blood cell count 9, hemoglobin 8, platelets 180. Creatinine is 0.8. CRP 250. Please see impressions and recommendations as outlined above. Thanks for asking me to see Mr. Mloina in consultation. [id number]/[facility] #: [id number] [facility]
[2016-07-15] MEDS: Diltiazem TAB* 60 MG PO SCH ×5 (00:15→23:39)
[2016-07-15] MEDS: Vancomycin(*) 1,250 MG in NS 0.9% 250 ML* 250 ML IVPB SCH ×3 (05:26→19:47)
[2016-07-15 06:24] LABS: Hematocrit 26 % (42-52); Hemoglobin 8.3 g/dl (14.0-18.0); Mean Corpuscular HGB Conc 32 g/dl (31-36); Mean Corpuscular Hemoglobin 25 pg (27-31); Mean Corpuscular Volume 78 fL (80-94); Mean Platelet Volume 7 um3 (7.4-10.4); Red Cell Distribution Width 18 % (10.5-15); White Blood Count 13.1 10^3/ul (3.5-10.8)
[2016-07-15 06:33] LABS: Add Diff/Slide Review? Slide Review Added; Comments Flag Yes
[2016-07-15 06:35] LABS: BUN/Creatinine Ratio 21.3 (8-20); Calcium 7.7 mg/dL (8.6-10.3); EGFR African American 169.6 (>60); EGFR Non-African American 131.8 (>60); Potassium 2.9 mmol/L (3.5-5.0)
[2016-07-15] MEDS: Cefepime(*) 2 GM in NS 0.9% 50 ML* 50 ML IVPB SCH ×2 (07:26→17:55)
--- NOTE | 2016-07-15 10:26 | PN ---
Subjective Date of Service: 07/15/16 Interval History: Patient seen this morning. Reports some mild intermittent LLE ankle discomfort but otherwise feels well. No other pain, fever, chills, SOB. Had a good breakfast, slept well. Family History: Unchanged from Admission Social History: Unchanged from Admission Past Medical History: Unchanged from Admission Objective Active Medications: Ascorbic Acid (Vitamin C Tab*) 500 mg PO QPM [facility] Last Admin: 07/14/16 16:41 Dose: 500 mg Benztropine Mesylate (Cogentin Tab*) 1 mg PO DAILY [facility] Last Admin: 07/14/16 08:15 Dose: 1 mg Digoxin (Lanoxin Tab*) 0.1875 mg PO DAILY@1700 [facility] Last Admin: 07/14/16 16:40 Dose: 0.1875 mg Diltiazem HCl (Cardizem Tab*) 60 mg PO Q6HR [facility] Last Admin: 07/15/16 06:31 Dose: 60 mg Heparin Sodium (Porcine) (Heparin Flush Picc/Ml/Cvc(*)) 1 ml FLUSH 0600,1800 [facility] PRN Reason: Protocol Last Admin: 07/14/16 16:42 Dose: Not Given Vancomycin HCl 1,250 mg/ (Sodium Chloride) 250 mls @ 166.667 mls/hr IVPB Q8H [facility] Last Admin: 07/15/16 05:26 Dose: 166.667 mls/hr Cefepime HCl 2 gm/ Sodium (Chloride) 50 mls @ 100 mls/hr IVPB Q12H [facility] Last Admin: 07/15/16 07:26 Dose: 100 mls/hr Magnesium Oxide (Magox 400 Tab*) 800 mg PO DAILY [facility] Last Admin: 07/14/16 08:15 Dose: 800 mg Ondansetron HCl (Zofran Inj*) 4 mg IV Q6H PRN PRN Reason: NAUSEA Oxycodone HCl (Roxycodone Tab*) 5 mg PO Q4H PRN PRN Reason: PAIN SCALE 1-5 Pharmacy Consult (Vancomycin Per Pharmacy*) 1 note FOLLOW UP . PRN PRN Reason: PER PROTOCOL Pharmacy Profile Note (Vancomycin Trough Check) 1 note FOLLOW UP 1130 ONE Stop: 07/15/16 11:31 Pharmacy Profile Note (Coumadin Per Pharmacy*) 1 note FOLLOW UP .PER PHARMACY PROTOC [facility] PRN Reason: Protocol Potassium Chloride (Klor Con Er Tab*) 40 meq PO Q2H [facility] Stop: 07/15/16 13:01 Tamsulosin HCl (Flomax Cap*) 0.4 mg PO BEDTIME [facility] Last Admin: 07/14/16 20:22 Dose: 0.4 mg Thiamine HCl (Vitamin B-1 Tab*) 100 mg PO DAILY [facility] Last Admin: 07/14/16 08:13 Dose: 100 mg Vital Signs 07/14/16 07/14/16 07/14/16 15:43 16:10 17:53 Temperature 97.9 F Pulse Rate 100 Respiratory 20 Rate Blood Pressure 133/70 (mmHg) O2 Sat by Pulse 98 99 98 Oximetry 07/15/16 07/15/16 07/15/16 00:02 00:17 05:30 Temperature 98.6 F Pulse Rate 88 Respiratory 18 18 Rate Blood Pressure 107/59 (mmHg) O2 Sat by Pulse 99 96 Oximetry 07/15/16 07:47 Temperature 98.2 F Pulse Rate 84 Respiratory 18 Rate Blood Pressure 121/49 (mmHg) O2 Sat by Pulse 99 Oximetry Oxygen Devices in Use Now: None Appearance: Elderly, M, laying in bed in NAD Eyes: No Scleral Icterus Ears/Nose/Mouth/Throat: Mucous Membranes Moist Neck: NL Appearance and Movements; NL JVP Respiratory: Symmetrical Chest Expansion and Respiratory Effort, Clear to Auscultation Cardiovascular: NL Sounds; No Murmurs; No JVD, RRR Abdominal: NL Sounds; No Tenderness; No Distention Extremities: - - L groin site dressed, no surrounding ecchymoses/edema, L ankle edema Skin: - - Did not assess ankle/sacral wounds today Neurological: - - Alert, oriented, no focal deficits Lines/Tubes/Other Access: Clean, Dry and Intact [place]more Result Diagrams: 07/15/16 05:51 07/15/16 05:51 Additional Lab and Data: Microbiology and Other Data: Microbiology 07/11/16 23:29 Aerobic Blood Culture - Final Blood Venous Enterococcus Faecium Anaerobic Blood Culture - Final Enterococcus Faecium Blood Culture - Final Blood MRSA/MSSA (PCR) - Final Mrsa Negative S.aureus Negative 07/11/16 17:40 Influenza Types A,B Antigen (KASSY) - Final Nasal Specimen received for Influenza A/B Molecular testing Assess/Plan/Problems-Billing Assessment: Sepsis 2/2 pseudomonal UTI/bacteremia, enterococcal bacteremia, OTILIA in a 65 yo M with hx of chronic decubitus ulcer, epidural abscess, DOROTHY ankle hardware infection, AFib on coumadin, NSTEMI, HTN, GERD, BPH - Patient Problems (1) Sepsis Current Visit: No Comment: Pseudomonas and Enterococcus urine and blood. Appreciate ID assistance, continue Vanc/Cefepime. Repeat BCx taken, pending. CT scan on admission shows ?osteo. (2) Sacral decubitus ulcer Current Visit: Yes Comment: Appreciate surgery assistance. Wound does not appear infected. Will ask wound care nurse to evaluate for optimal dressing. (3) Afib Current Visit: No Comment: Continue Digoxin. Continue Diltiazem 60 mg q6h ( lower than home dose). Resume coumadin. INR pending. (4) OTILIA (acute kidney injury) Current Visit: No Comment: Resolved. (5) Urinary retention Current Visit: Yes Comment: Continue gilmore and tamsulosin. (6) HTN (hypertension) Current Visit: Yes Comment: Continue Diltiazem as above. Holding remainder of outpatient BP meds/diuretics. (7) DVT prophylaxis Current Visit: No Comment: Warfarin
[2016-07-15] MEDS: Thiamine TAB* 100 MG TAB PO SCH (10:36)
[2016-07-15] MEDS: Potassium Chlor TAB* 20 MEQ TAB.ER PO SCH ×3 (10:36→15:22)
[2016-07-15] MEDS: Magnesium Oxide TAB* 400 MG PO SCH (10:37)
[2016-07-15] MEDS: Benztropine TAB* 1 MG PO SCH (10:37)
[2016-07-15] MEDS ORDERED: Vancomycin Trough Check NOTE FOLLOW UP ONE (11:30)
[2016-07-15] MEDS ORDERED: Potassium Chlor TAB* 20 MEQ TAB.ER PO ONE (16:00)
--- NOTE | 2016-07-15 16:05 | PN ---
Progress Note - Progress Note SOAP: Subjective: DOS: 07/15/16 CC: bacteremia HPI: 65 year old man with L spine ESTRADA and left ankle ORIF infection s/p I&D of both then senior living IV antibiotics, admitted with septic shock. No fever, rash , or diarrhea. No back or ankle pain. Right decubitus ulcer, not painful. Objective: [] Vital Signs Temp 36.8 C 07/15/16 07:47 Pulse 84 07/15/16 07:47 Resp 18 07/15/16 08:00 BP 121/49 07/15/16 07:47 Pulse Ox 99 07/15/16 08:00 Intake & Output 07/14/16 07/15/16 07/15/16 18:59 06:59 18:59 Intake Total 1100 678 770 Output Total 1300 1525 1350 Balance -200 -847 -580 Intake: IV Fluids 36 Normal Saline Continuous 36 IVPB 350 282 Vancomycin 250 282 Zosyn 100 Oral 750 360 770 Output: Urine 1300 Briggs 1525 1350 Other: Estimated Void Large # Bowel Movements 2 # Voids 1 Gen:NAD Neuro: Awake, oriented, follows all commands Neck:supple HEENT:no conjunctival hemorrhage LN: no visible or palpable LN Heart:Regular no murmur Lungs:CTA BL Abd:+BS NTND soft Skin: no rash, no spplinter hemorrhages MSK: Right decubitus ulcer no surrounding erythema, no spine tenderness, left medial ankle ulcer no erythema Assessment: 1. Severe sepsis present on admission 2. MSSA L spine ESTRADA and left ankle hardware infection 3. Enterococcus and Pseudomonas bacteremia, resolved; due to infected urinary catheter, has been changed. No peripheral stigmata of IE and clear source, no predisposing cardiac condition and TTE negative, low probability for infective endocarditis. 4. senior living abx 5. elevated CRP Plan: 1. continue vanco goal trough 15-20 and cefepime 2 gm IV Q12hrs day 09/05 2. lifelong Bactrim DS tab daily for chronic left ankle suppression Discussed with Dr Wagner
[2016-07-15] MEDS ORDERED: Warfarin TAB(*) 4 MG PO ONE (17:00)
[2016-07-15] MEDS ORDERED: Warfarin TAB(*) 2.5 MG PO ONE (17:00)
[2016-07-15] MEDS: Ascorbic Acid TAB* 500 MG PO SCH (17:56)
[2016-07-15] MEDS: Digoxin TAB* 0.125 MG PO SCH (17:56)
[2016-07-15] MEDS: Tamsulosin CAP* 0.4 MG PO SCH (21:26)
[2016-07-16] MEDS: Vancomycin(*) 1,250 MG in NS 0.9% 250 ML* 250 ML IVPB SCH ×2 (03:50→12:58)
[2016-07-16] MEDS: Cefepime(*) 2 GM in NS 0.9% 50 ML* 50 ML IVPB SCH (06:17)
[2016-07-16] MEDS: Diltiazem TAB* 60 MG PO SCH ×2 (06:18→12:58)
[2016-07-16 06:29] LABS: Hematocrit 25 % (42-52); Mean Corpuscular HGB Conc 31 g/dl (31-36); Mean Corpuscular Hemoglobin 25 pg (27-31); Mean Corpuscular Volume 78 fL (80-94); Mean Platelet Volume 7 um3 (7.4-10.4); Red Blood Count 3.26 10^6/ul (4.0-5.4); Red Cell Distribution Width 18 % (10.5-15)
[2016-07-16 06:43] LABS: BUN/Creatinine Ratio 16.7 (8-20); Calcium 7.7 mg/dL (8.6-10.3); EGFR African American 223.6 (>60); EGFR Non-African American 173.9 (>60)
[2016-07-16] MEDS ORDERED: Potassium Chlor TAB* 20 MEQ TAB.ER PO ONE (08:30)
--- NOTE | 2016-07-16 08:44 | PN ---
Progress Note - Progress Note SOAP: Subjective: DOS: 07/16/16 CC: bacteremia HPI: 65 year old man with L spine ESTRADA and left ankle ORIF infection s/p I&D of both then [facility] IV antibiotics, admitted with septic shock. No fever, rash , or diarrhea. No back or ankle pain. Objective: [] Vital Signs Temp 37.4 C 07/15/16 23:42 Pulse 86 07/15/16 23:42 Resp 16 07/15/16 23:42 BP 128/48 07/15/16 23:42 Pulse Ox 95 07/16/16 00:00 Intake & Output 07/15/16 07/16/16 07/16/16 18:59 06:59 18:59 Intake Total 1400 1279 Output Total 1350 2600 Balance 50 -1321 Intake: IV Fluids 154 ABX - CEFEPIME 12 Normal Saline Continuous 142 IVPB 310 265 ABX - CEFEPIME 55 Vancomycin 255 265 Oral 1090 860 Output: Briggs 1350 2600 Other: # Bowel Movements 1 Estimated Stool Amount Small # Voids 3 Gen:NAD Neuro: Awake, oriented, follows all commands Neck:supple HEENT:no conjunctival hemorrhage LN: no visible or palpable LN Heart:Regular no murmur Lungs:CTA BL Abd:+BS NTND soft Skin: no rash, no spplinter hemorrhages MSK: Right decubitus ulcer no surrounding erythema, no spine tenderness, left medial ankle ulcer no erythema Assessment: 1. Severe sepsis present on admission 2. MSSA L spine ESTRADA and left ankle hardware infection 3. Enterococcus and Pseudomonas bacteremia, resolved; due to infected urinary catheter, has been changed. No peripheral stigmata of IE and clear source, no predisposing cardiac condition and TTE negative, low probability for infective endocarditis. 4. buttermaker continuous churn abx 5. elevated CRP 6. right sacral ulcer stage 4, present on admission Plan: 1. continue vanco goal trough 15-20 and cefepime 2 gm IV Q12hrs day 10/05 2. lifelong Bactrim DS tab daily for chronic left ankle suppression Discussed with Dr Wagner 35 minutes floor time >50% face to face with patient and family discussing prognosis given his age, underlying infection and immobility and accumulating chronic medical issues, next steps for placement and discharge planning. All questions answered.
[2016-07-16] MEDS: Magnesium Oxide TAB* 400 MG PO SCH (08:53)
[2016-07-16] MEDS: Benztropine TAB* 1 MG PO SCH (08:53)
[2016-07-16] MEDS: Thiamine TAB* 100 MG TAB PO SCH (08:53)
[2016-07-16] MEDS ORDERED: Potassium Chlor TAB* 20 MEQ TAB.ER PO SCH (09:00)
--- NOTE | 2016-07-16 14:14 | DCNOTE ---
Patient seen this afternoon. No complaints, just finished lunch. On exam, lungs CTA B/L, no w/r/r, abd soft, NTND, BS+, ankle edema B/L, R>L, L ankle dressing in place. Will discharge back to [facility] today. Will need dressing changes daily and will continue IV Abx through 07/25.
[2016-07-16 15:02] VITALS: BP 124/68
[2016-07-16] MEDS ORDERED: Warfarin TAB(*) 6 MG PO ONE (17:00)
--- NOTE | 2016-07-17 00:13 | DS ---
DISCHARGE SUMMARY: DATE OF ADMISSION: 07/11/16 DATE OF DISCHARGE: 07/16/16 PRIMARY CARE PHYSICIAN: Dr. Dorsey. PRINCIPAL DISCHARGE DIAGNOSES: 1. Septic shock. 2. Pseudomonas and Enterococcus urinary tract infection and bacteremia. 3. Acute kidney injury. 4. Lactic acidosis. 5. Hypokalemia. STUDIES DONE DURING HOSPITALIZATION: Chest x-ray, impression: Low lung volumes. No active cardiopulmonary disease. CT abdomen and pelvis without contrast, impression: Diffuse distention in the colon suggested colonic pseudoobstruction, questionable mild thickening in the bladder wall. The bladder has collapsed around the Briggs catheter which limits evaluation. There is soft tissue ulcer along the sacrum consistent with history of decubitus ulcer. There is erosion on the first coccygeal vertebral body concerning for osteomyelitis. DISCHARGE MEDICATION REGIMEN: 1. Vancomycin 1.25 g every 8 hours. 2. Cefepime 2 g IV every 12 hours. 3. Potassium chloride 40 mEq 3 times daily. 4. Metoprolol succinate 50 mg by mouth daily with meals, decreased from 200 mg by mouth daily. 5. Tylenol 650 mg by mouth every 4 hours as needed for pain. 6. Digoxin 187.5 mcg by mouth nightly. 7. Diltiazem 360 mg by mouth daily. 8. Ferrous sulfate 325 mg by mouth daily. 9. Folic acid 1 mg by mouth daily. 10. Cogentin 1 mg by mouth daily. 11. Lisinopril 10 mg by mouth daily. 12. Magnesium oxide 800 mg by mouth daily. 13. Omeprazole 20 mg by mouth daily. 14. Oxycodone 5 mg by mouth every 4 hours as needed for pain. 15. Oxycodone 10 mg by mouth every 4 hours as needed for severe pain. 16. Pro-Stat 50 mL by mouth 2 times daily 17. Flomax 0.4 mg by mouth at bedtime. 18. Thiamine 100 mg by mouth daily. 19. Vitamin B12 1000 mcg by mouth daily. 20. Vitamin D 2000 units by mouth daily. 21. Warfarin 6.5 mg by mouth at bedtime. 22. Metolazone 5 mg by mouth daily. 23. Zinc sulfate 220 mg by mouth daily. 24. Ascorbic acid 500 mg by mouth nightly. HISTORY OF PRESENT ILLNESS AND HOSPITAL SUMMARY: Please see the full history and physical by Lito Altamirano NP for full details. Briefly, Mr. Molina is a 65- year- old male with a past medical history of epidural abscess, status post surgical drainage of left lower extremity ankle hardware and infection; AFib, on Coumadin; cirrhosis; GERD; BPH who presented to the hospital with fevers. The patient was noted to have a fever of 103 at wound clinic and was sent in for further evaluation. The patient had a leukocytosis and lactic acidosis on admission. Urinalysis was positive. He had evidence of acute kidney injury. The patient was started on antibiotics. He was noted to be hypotensive as well. He was placed in the ICU and required vasopressor therapy for short time. Subsequently, the patient's urine and blood cultures were both positive for pseudomonas and Enterococcus. The patient was initially treated with Zosyn alone. After the Enterococcus was speciated, vancomycin was added. The patient' s renal function improved as did his blood pressures. He was able to be weaned off vasopressors. His Zosyn was changed to cefepime at the request of Dr. Lawrence, who evaluated the patient as well. The patient's wounds did not seem to be infected and it was most likely this originated from the urine and the patient's indwelling Briggs catheter. He will be continued on IV antibiotics through 07/25/16 at which point, the patient will be switched to oral Bactrim as per Dr. Lawrence for lifelong suppressive therapy for his chronic left ankle infection. The patient should follow up in the wound clinic regarding his wounds. His dressings should be changed daily or whenever soiled whichever is more frequent. The patient's indwelling Briggs catheter should be changed every 3 to 4 weeks as he had frequent admissions for significant dehydration. The patient should be offered water multiple times a day to ensure he has enough hydration. Some of the patient's medications were changed during this hospitalization. Please the medication list above for an accurate med list. TIME SPENT: Total time spent on this discharge 45 minutes. This is the summary of the hospitalization. Please see the full medical records for further details. CC: Dr. Dorsey* [id number]/[facility] #: [id number] [facility]
== END 2016-07-16 16:30 | DRG 871 ==
LOC: ED 13:19 → UNDOADMIN 14:40 → MEDTELE 14:40 → ICU 16:29 → MED 07-13 09:45
PROVIDERS: ADMIT Hospitalist; ATTEND Hospitalist
PROC: 06HN33Z Insertion of Infusion Device into Left Femoral Vein, Percutaneous Approach (ICD-10-PCS; principal; 2016-07-11)
PROC: 30233N1 Transfusion of Nonautologous Red Blood Cells into Peripheral Vein, Percutaneous Approach (ICD-10-PCS; 2016-07-13)
PROC: 0T2BX0Z Change Drainage Device in Bladder, External Approach (ICD-10-PCS; 2016-07-14)
DX: A41.81 Sepsis due to Enterococcus (principal); L89.154 Pressure ulcer of sacral region, stage 4; R65.21 Severe sepsis with septic shock; N17.9 Acute kidney failure, unspecified; G06.2 Extradural and subdural abscess, unspecified; E87.2 Acidosis; I95.9 Hypotension, unspecified; E44.0 Moderate protein-calorie malnutrition; N39.0 Urinary tract infection, site not specified; T83.511A Infection and inflammatory reaction due to indwelling urethral catheter, initial encounter; T84.629A Infection and inflammatory reaction due to internal fixation device of unspecified bone of leg, initial encounter; I10 Essential (primary) hypertension; K74.60 Unspecified cirrhosis of liver; K21.9 Gastro-esophageal reflux disease without esophagitis; F10.10 Alcohol abuse, uncomplicated; I48.91 Unspecified atrial fibrillation; L89.522 Pressure ulcer of left ankle, stage 2; Z66 Do not resuscitate; B96.5 Pseudomonas (aeruginosa) (mallei) (pseudomallei) as the cause of diseases classified elsewhere; D64.9 Anemia, unspecified; E87.6 Hypokalemia; Z16.11 Resistance to penicillins; A41.52 Sepsis due to Pseudomonas; B95.61 Methicillin susceptible Staphylococcus aureus infection as the cause of diseases classified elsewhere; N40.1 Benign prostatic hyperplasia with lower urinary tract symptoms; R33.9 Retention of urine, unspecified; I25.10 Atherosclerotic heart disease of native coronary artery without angina pectoris; Z79.01 Long term (current) use of anticoagulants; Z86.718 Personal history of other venous thrombosis and embolism; Z87.820 Personal history of traumatic brain injury; Z95.828 Presence of other vascular implants and grafts; Z82.49 Family history of ischemic heart disease and other diseases of the circulatory system; I25.2 Old myocardial infarction; Z87.891 Personal history of nicotine dependence; Z68.28 Body mass index [BMI] 28.0-28.9, adult
CPT/HCPCS: 36415; 71010; 74176; 80048; 80053; 80162; 80202; 81003; 81015; 82550; 82570; 83605; 84300; 84484; 85025; 85027; 85610; 86140; 86850; 86900; 86901; 86922; 87040; 87077; 87086; 87150; 87186; 87205; 87502; 93005; 93306; 94760; A9270-GY; J0692; J2543; J3370; J3480; P9040

== ENCOUNTER 2017-02-17 10:33 | Observation (INO) | payer MEDICARE, BC, MEDICAID ==
[2017-02-17 11:09] LABS: Hematocrit 34 % (42-52); Hemoglobin 10.8 g/dl (14.0-18.0); Mean Corpuscular HGB Conc 32 g/dl (31-36); Mean Corpuscular Hemoglobin 25 pg (27-31); Mean Corpuscular Volume 79 fL (80-94); Mean Platelet Volume 8 um3 (7.4-10.4); Red Blood Count 4.27 10^6/ul (4.0-5.4); Red Cell Distribution Width 19 % (10.5-15); White Blood Count 8.6 10^3/ul (3.5-10.8)
[2017-02-17 11:22] LABS: BUN/Creatinine Ratio 20.8 (8-20); Calcium 8.6 mg/dL (8.6-10.3); EGFR African American 70.6 (>60); EGFR Non-African American 54.9 (>60); Globulin 3.9 g/dL (2-4); Potassium 3.4 mmol/L (3.5-5.0); Total Bilirubin 0.9 mg/dL (0.2-1.0); Total Protein 6.9 g/dL (6.4-8.9)
--- NOTE | 2017-02-17 11:23 | RAD ---
INDICATION: Tachycardia COMPARISON: Most recent comparison chest x-ray July 11, 2016 TECHNIQUE: Single AP portable view of the chest was obtained. FINDINGS: Image quality is compromised due to the relative inferiority of a portable chest x-ray. The heart and mediastinum are normal in size and contour. The lung volumes appear hypoplastic but the lungs are otherwise clear. There are dilated loops of air-filled colon throughout the abdomen. Gas is seen below both diaphragm, that most likely appears to be intracolonic. IMPRESSION: 1. No radiographic evidence for acute cardiopulmonary abnormality on this portable chest x-ray. 2. Air-filled loops of colon filling the peritoneal cavity.
[2017-02-17 11:24] LABS: Troponin I 0.01 ng/mL (<0.04)
[2017-02-17] MEDS ORDERED: NS 0.9% 1000 ML* 2,000 ML IV ONE (11:30)
[2017-02-17 13:41] LABS: Urine Bacteria 1+ (Absent); Urine Bilirubin Negative (Negative); Urine Glucose Negative (Negative); Urine Nitrite Negative (Negative)
[2017-02-17] MEDS ORDERED: cefTRIAXone(*) 1 GM in NS 0.9% 50 ML* 50 ML IVPB ONE (13:50)
[2017-02-17] MEDS ORDERED: cefTRIAXone(*) 1 GM ADVAN/BAG ONE (14:03)
[2017-02-17] MEDS ORDERED: Morphine INJ* 2 MG/ML 1 ML CARPUJECT IV ONE (14:11)
[2017-02-17] MEDS ORDERED: Ondansetron INJ* 2 MG/ML VIAL IV PRN (14:17)
[2017-02-17] MEDS ORDERED: HYDROcodone/ACETAMIN 5-325 MG* 1 TAB PO PRN (14:35)
[2017-02-17] MEDS ORDERED: Morphine INJ* 2 MG/ML 1 ML SYRINGE (TWO MG - NEW SYRINGE VERSION) IV PRN (14:35)
[2017-02-17] MEDS ORDERED: Acetaminophen TAB* 325 MG PO PRN (14:35)
[2017-02-17] MEDS: Enoxaparin(*) 40 MG/0.4 ML SYR SUBCUT SCH (14:36)
[2017-02-17] MEDS ORDERED: Potassium Chlor TAB* 20 MEQ TAB.ER PO ONE (14:50)
--- NOTE | 2017-02-17 16:54 | CONSULT ---
Consult Consult: Surgical consult dictated: Impression/Plan: Stage IV sacral decubitus ulcer Will continue wet-to-dry dressing changes with 0.9% NS once daily Per patient, wound vac has been tried in the past, no effective due to close proximity to the anus Wound appears clean and dry, no indication for surgical debridement. Thank you for this consultation
[2017-02-17] MEDS: NS 0.9% 1000 ML* 1,000 ML IV SCH (17:28)
[2017-02-17] MEDS: Warfarin TAB(*) 4 MG PO SCH (17:33)
[2017-02-17] MEDS: Cefepime(*) 1 GM in NS 0.9% 50 ML* 50 ML IVPB SCH (17:34)
[2017-02-17] MEDS: Warfarin TAB(*) 2.5 MG PO SCH (17:34)
[2017-02-17] MEDS: Digoxin TAB* 0.125 MG PO SCH (17:35)
[2017-02-17] MEDS: metroNIDAZOLE IV 500 MG/100ML* 500 MG/100 ML BAG IVPB SCH ×2 (18:11→23:52)
--- NOTE | 2017-02-17 20:32 | HP ---
Amended report to enter cosigning doctor. HISTORY AND PHYSICAL: DATE OF ADMISSION: 02/17/17 PROVIDER: Bertha Burks MD* (dictated by Austin Gomez NP). PRIMARY CARE PROVIDER: Dr. Joya. ATTENDING PHYSICIAN WHILE IN THE HOSPITAL: Chaparro Burks MD. CHIEF COMPLAINT: Shortness of breath. HISTORY OF PRESENT ILLNESS: Mr. Molina is a 66-year-old patient who resides at a shelter, [facility], who has a sacral decubitus since April. Today , he had an appointment scheduled at the [facility]. When he was there, he was in the waiting room, he became significantly short of breath, ashen and diaphoretic. EMS was called and he was transported to our emergency room. The patient's sister was with him at that time. With EMS, he was in rapid AFib, with a heart rate of 150s. On arrival to the emergency room , his vital signs were 98.1, heart rate 147, respiratory rate 18, O2 sat 81 on room air, blood pressure 113/85. Within 10 minutes, he had recorded O2 sat of 99 with O2 at 3 L. His heart rate with fluid resuscitation came down to 97. He is in chronic AFib. While he was in the emergency room, he also had complaints of a possible UTI and evaluation for the sacral decubiti. The UA showed a significant UTI and a surgical consult was ordered for the sacral decubiti. He will be admitted to the hospitalist service, a surgical consult has been ordered. He is receiving antibiotics for his UTI and the sacral decubiti. He will be placed on auto locator for his chronic AFib. PAST MEDICAL HISTORY: Significant for epidural abscess. He has had a non- STEMI VA, chronic AFib, left upper extremity DVT related to a PICC line, BPH, hepatitis B, alcoholic cirrhosis, sacral decubitus since April of last year, peripheral edema, hypertension, GERD. PAST SURGICAL HISTORY: He has had an L1-S4 decompression laminectomy, he also had status post removal of ankle hardware and an inguinal hernia repair. MEDICATIONS: At [facility]: 1. Digoxin 0.125 mg daily. 2. Vitamin C 500 p.o. b.i.d. 3. Vitamin D 2000 units p.o. every a.m. 4. Flomax 0.4 daily. 5. Protonix tab 40 mg p.o. daily. 6. Metoprolol 12.5 mg p.o. twice a day. 7. Potassium chloride 40 mEq daily. 8. Amino acids protein 15 mL twice a day. 9. Oxycodone 5 mg p.o. every 4 hours p.r.n. 10. Magnesium oxide 800 mg p.o. b.i.d. 11. Ferrous sulfate 325 mg p.o. b.i.d. 12. Doxycycline 100 mg p.o. b.i.d. 13. Vitamin B12 injection once a month, 1000 mcg IM. 14. Warfarin 6.5 mg p.o. daily. 15. Acidophilus 1 cap p.o. daily. ALLERGIES: He has no known allergies. FAMILY HISTORY: Reviewed and noncontributory. SOCIAL HISTORY: He is a former smoker. He resides at [facility]. He does not drink alcohol. Surrogate decision maker is his sister, Kelsi Gray, who will be out of town on a cruise, so for this admission Jad Molina will be his surrogate, whose phone number is [phone]. REVIEW OF SYMPTOMS: He says he has lost weight; he has an appetite, but it is difficult for him to eat. He has weakness, he has not had fever or chills. Skin: Sacral decubiti. No rashes. Denies headache, denies ringing in ears, denies blurred vision. No sinus pain or stuffiness. Missing multiple teeth. Poor dental hygiene. Denies neck pain or stiffness. Respiratory: Did have an episode of shortness of breath today, but did not have any wheezing. He is not coughing. Cardiovascular: Denies chest pain, palpitations or shortness of breath with activity. GI: Does complain of diarrhea on a daily basis. Denies heartburn. Briggs catheter dependent for urinary retention. Musculoskeletal: No complaints of back pain or trauma. Neuro: He is alert, oriented, moves all extremities. Denies bruising or bleeding. PHYSICAL EXAMINATION GENERAL: At this time, Mr. Molina is a 66-year-old male, is lying fairly flat on the stretcher. He appears to be a chronically ill-appearing, not in any acute distress at this time. He is awake and alert and communicates easily. Sister at the bedside with him and there is some argumentative conversation between the two of them. VITAL SIGNS: Currently, heart rate 89 and irregular, respiratory rate 16, O2 sat 98% on room air, blood pressure 121/62, temp 97.3. HEENT: Head is atraumatic, normocephalic. Eyes: Sclerae are anicteric. Throat: Oral mucosa is moist. NECK: Supple. LUNGS: Clear to auscultation bilaterally. HEART: Sounds S1, S2. Irregularly irregular rate. No murmurs, rubs or gallops. ABDOMEN: Soft, flat, nontender. Bowel sounds are hyperactive. EXTREMITIES: Pulses are 2+ throughout. +2 pitting edema. He does have lower extremity weakness, but able to move easily. NEUROLOGIC: He is awake, alert, oriented to self and place, does not appear confused at this time, though he can have a history of that. Speech is clear. SKIN: He has significant stage IV pressure ulcer to his sacrum, beefy red. No odor to this. DIAGNOSTIC STUDIES/LAB DATA: His white count is 8.6, H and H is 10.8 and 34, platelet count 262. His chemistry, sodium is 136, potassium 3.4, chloride 106, carbon dioxide 21, BUN and creatinine of 27 and 1.3, lactate is 1.9, glucose 117. INR 2.32, PTT 38.1. His urine is significant for protein 2+, 2+ blood, 3+ leukocytes, 3+ white count, 3+ rbc's, 1+ bacteria. Chest x-ray, impression: No radiographic evidence for acute pulmonary abnormality on this portable chest x-ray, air-filled loops of colon filling the peritoneal cavity. EKG: Sinus tachy with irregular rate. ASSESSMENT AND PLAN: Mr. Molina is a 66-year-old male patient with multiple medical problems, coming into the ER today with complaints of acute onset of shortness of breath, became ashen and diaphoretic. At this time, those symptoms have resolved. He does have a significant sacral decubiti ulcer, which will need consult by the surgical team. Wet to dry packing to the Sacral wound at this time. He also has a significant urinary tract infection, which we will be treating with antibiotics. The hospitalist service was asked to evaluate for admission. He will be admitted to the telemetry unit to monitor his chronic atrial fibrillation. 1. Sacral decubiti: Surgical team consulted, will be seeing later today. Orders for the patient to be [id number] and off of his back as much as possible. He will be receiving Flagyl and cefepime. 2. Urinary tract infection. Will receive cefepime. 3. Acute renal failure: His BUN and creatinine is 27 and 1.3. We have replenished with 2 L of fluid and we will continue fluid at 100 mL of normal saline. We will recheck in the a.m. 4. Atrial fibrillation: His rate is now controlled, 90s to 100. We will continue his digoxin and he will be on telemetry monitoring for observation. 5. Urinary retention: Continue Briggs catheter. 6. Hepatitis B with cirrhosis: He will follow up with his primary care provider. 7. Hypertension: His blood pressure presently 121/62. We will continue metoprolol. 8. Gastroesophageal reflux disease: We will continue the patient on his PPI therapy. 9. Benign prostatic hyperplasia: Continue with Flomax. 10. Fluids, electrolytes, and nutrition: He will be on normal saline at 100 an hour. He can have a regular diet as tolerated. 10. Code status: He is a DNR/DNI. Surrogate decision maker, as previously stated, is his sister, but for the week that she is out of town, will be his brother Jad Molina, phone number is [phone]. TIME SPENT: Time spent on the admission was approximately 60 minutes; greater than half the time was spent [id number] with the patient obtaining my H and P , the other half time was spent going over the plan of care with the patient and his sister at the bedside and implementing plan of care. I discussed the plan of care with my attending, Dr. Burks, who is in agreement. AUSTIN GOMEZ, NUMERICAL TOOL PROGRAMMER [id number]/CPS #: [id number] ZURI
[2017-02-17] MEDS ORDERED: Warfarin TAB(*) 6 MG PO SCH (21:00)
[2017-02-17] MEDS ORDERED: Digoxin TAB* 0.125 MG PO SCH (21:00)
[2017-02-17] MEDS: Ferrous Sulfate TAB* 325 MG PO SCH (22:31)
[2017-02-17] MEDS: Ascorbic Acid TAB* 500 MG PO SCH (22:31)
[2017-02-17] MEDS: AMINO ACIDS PROTEIN HYDROLYSAT PO SCH (22:31)
[2017-02-17] MEDS: Metoprolol Tartrate TAB* 25 MG PO SCH (22:32)
[2017-02-17] MEDS: Magnesium Oxide TAB* 400 MG PO SCH (22:32)
[2017-02-17] MEDS: Tamsulosin CAP* 0.4 MG PO SCH (22:32)
[2017-02-18] MEDS: Cefepime(*) 1 GM in NS 0.9% 50 ML* 50 ML IVPB SCH ×2 (03:23→15:33)
[2017-02-18] MEDS: NS 0.9% 1000 ML* 1,000 ML IV SCH ×2 (03:24→14:57)
[2017-02-18] MEDS: Metoprolol Tartrate TAB* 25 MG PO SCH ×2 (10:00→21:21)
[2017-02-18] MEDS: metroNIDAZOLE IV 500 MG/100ML* 500 MG/100 ML BAG IVPB SCH ×2 (10:00→17:47)
[2017-02-18] MEDS: Magnesium Oxide TAB* 400 MG PO SCH ×2 (10:00→21:23)
[2017-02-18] MEDS: Ascorbic Acid TAB* 500 MG PO SCH ×2 (10:00→21:23)
[2017-02-18] MEDS: Potassium Chlor TAB* 20 MEQ TAB.ER PO SCH (10:00)
[2017-02-18] MEDS: Omeprazole CAP* 20 MG PO SCH (10:00)
[2017-02-18] MEDS: Cholecalciferol TAB* 1000 UNITS PO SCH (10:01)
[2017-02-18] MEDS: Ferrous Sulfate TAB* 325 MG PO SCH ×2 (10:01→21:23)
[2017-02-18] MEDS: AMINO ACIDS PROTEIN HYDROLYSAT PO SCH ×2 (10:01→21:24)
[2017-02-18] MEDS: Lactobacillus Acidophilu (GG)* 1 CAP CAP PO SCH (13:00)
[2017-02-18] MEDS: Enoxaparin(*) 40 MG/0.4 ML SYR SUBCUT SCH (14:57)
--- NOTE | 2017-02-18 15:11 | CONS ---
CONSULTATION REPORT: DATE OF CONSULT: 02/17/17 PATIENT OF: Dr. Bertha Burks. REFERRED TO: Dr. Ally Veliz. REASON FOR CONSULTATION: Chronic sacral decubitus ulcer. HISTORY OF PRESENT ILLNESS: Mr. Molina is a pleasant 66-year-old gentleman who is well known to us f rom prior multiple wound care visits related to his chronic decubitus ulcer. The patient has been a resident of [facility] and has had sacral decubitus ulcer since April of 2016. T he patient had an [facility]; however, when he was at the [facility] room, he became significantly short of breath and diaphoretic, for which he was transferred to [facility] emergency room for evaluation. The patient was noted to be in rapid AFib with a heart rate in the 150s as well as complaints of shortness of breath. The patient had a cardiac evaluation during his ED stay and he was eventually admitted under the hospitalist service with diagnosis of shortness of breath and atrial fibrillation. He was also noted to have possible UTI, for which his indwelling F oley catheter was changed as well during his ED stay. Since the patient missed his [facility] vis it today regarding his sacral decubitus ulcer, we were asked to see the patient for consultation reg arding that matter. The patient himself denies any significant complaint regarding the issue in the recent time. He has been living at the [facility] and he tells me that the nurses t here has been changing his dressing to the sacral decubitus wound on average once daily with wet-to- dry dressing. He had tried wound VAC application; however, it failed to sustain suction due to the very close proximity to his anal verge. PAST MEDICAL HISTORY: As mentioned above. Significant for chronic atrial fibrillation, upper extre mity DVT in the past due to long indwelling PICC line. He also has a history of epidural abscess, h epatitis B, alcoholic cirrhosis, BPH, sacral decubitus since April of last year as well as GERD, hypertension and peripheral edema. PAST SURGICAL HISTORY: Significant for ORIF of ankle and then hardware removal. He also had an ingu inal hernia repair as well as an L1 to S4 decompression laminectomy. CURRENT MEDICATIONS: At [facility], his medications included: 1. Digoxin 0.125 mg daily. 2. Vitamin C 500 mg p.o. b.i.d. 3. Vitamin D 2000 units p.o. q.a.m. 4. Flomax 0.4 daily. 5. Protonix 40 mg p.o. daily. 6. Metoprolol 12.5 mg p.o. b.i.d. 7. Potassium chloride 40 mEq daily. 8. Amino acids protein 15 mL twice a day. 9. Oxycodone 5 mg p.o. q.4 hours p.r.n. for pain. 10. Magnesium oxide 800 mg p.o. b.i.d. 11. Ferrous sulfate 325 mg p.o. b.i.d. 12. Doxycycline 100 mg p.o. b.i.d. 13. Vitamin B12 injection once a month. 14. Warfarin 6.5 mg p.o. daily. 15. Acidophilus 1 cap p.o. daily. ALLERGIES: He has no known drug allergies. FAMILY HISTORY: Noncontributory. SOCIAL HISTORY: The patient is a former smoker, who resides at [facility]. He does not drink alcohol. REVIEW OF SYSTEMS: See HPI, otherwise negative. PHYSICAL EXAM: General: He is a pleasant, elderly gentleman, appears chronically ill, but in no ac erick distress or discomfort at the time of consultation. Vitals: Revealed blood pressure of 121/62, temperature of 98.1, respirations of 16, heart rate of 95, and O2 sat of 98% on room air. HEENT: H ead, atraumatic and normocephalic. Sclerae anicteric. EOMs intact. Oropharynx pink and moist. Ne ck: Supple. Trachea midline. No cervical adenopathy or thyromegaly. Lungs: Clear to auscultation bilaterally. Heart: Irregular rate and rhythm. No murmurs, rubs, or gallops. Abdomen: Soft, no ntender, and nondistended. No hernias, masses or hepatosplenomegaly and bowel sounds were normoacti ve. Extremities: Without cyanosis, clubbing and with 2+ edema bilaterally. Neurologic: Grossly i ntact. Skin: Examination of the sacral area revealed a large stage IV sacral decubitus ulcer that a ppears to be granulating well measuring approximately 10 x 8 cm with no bleeding or discharge noted. There is no exudate or any foul odor to the area. The skin edges appear to be clean and there is n o further erythema or induration surrounding the ulcer. It was cleaned with normal saline and then dressed with wet- to-dry dressing with ABD on top. Rectal: Exam deferred at this time. IMPRESSION: An elderly gentleman with multiple medical problems and comorbidities who was admitted under medical services today with complaints of shortness of breath and atrial fibrillation, who has also a chronic sacral decubitus ulcer since April of last year. PLAN: We will continue wet-to-dry dressing with 0.9% normal saline to the sacral decubitus ulcer on ce daily. The patient unfortunately is not a good candidate for wound VAC application given the chidi y close proximity of the inferior edge of the ulcer, which is roughly about 2 cm from the anal verge . It would make it very hard to obtain a good feel of the wound VAC dressing in order for it to be effective. There was no evidence of cellulitis or ongoing infection of the chronic ulcer. I will di scuss the case with Dr. Veliz regarding his care and previous wound clinic visit management. We wi ll follow him up accordingly. Thank you for this consultation. FRANCY ALEXANDER [id number]/[facility] #: [id number]
--- NOTE | 2017-02-18 16:34 | PN ---
Subjective Date of Service: 02/18/17 Interval History: Pt seen and examined at bedside. Was napping on my arrival. Denies chest pain , shortness of breath, n/v or pain. Family History: Unchanged from Admission Social History: Unchanged from Admission Past Medical History: Unchanged from Admission Objective Active Medications: Acetaminophen (Tylenol Tab*) 650 mg PO Q4H PRN PRN Reason: PAIN Hydrocodone Bitart/Acetaminophen ([place] 5-325 Tab*) 1 tab PO Q6H PRN PRN Reason: PAIN Ascorbic Acid (Vitamin C Tab*) 500 mg PO BID [facility] Last Admin: 02/18/17 10:00 Dose: 500 mg Cholecalciferol (Vitamin D Tab*) 2,000 units PO QAM [facility] Last Admin: 02/18/17 10:01 Dose: 2,000 units Digoxin (Lanoxin Tab*) 0.125 mg PO 1700 [facility] Last Admin: 02/17/17 17:35 Dose: 0.125 mg Ferrous Sulfate (Ferrous Sulfate Tab*) 325 mg PO BID [facility] Last Admin: 02/18/17 10:01 Dose: 325 mg Cefepime HCl 1 gm/ Sodium (Chloride) 50 mls @ 100 mls/hr IVPB Q12H [facility] Last Admin: 02/18/17 15:33 Dose: 100 mls/hr Lactobacillus Rhamnosus (Culturelle*) 1 cap PO DAILY [facility] Last Admin: 02/18/17 13:00 Dose: 1 cap Magnesium Oxide (Magox 400 Tab*) 800 mg PO BID [facility] Last Admin: 02/18/17 10:00 Dose: 800 mg Metoprolol Tartrate (Lopressor Tab*) 12.5 mg PO BID [facility] Last Admin: 02/18/17 10:00 Dose: 12.5 mg Morphine Sulfate (Morphine Inj (Syringe)*) 2 mg IV Q4H PRN PRN Reason: PAIN - MILD Amino Acids-Protein Hydrolysat [Pro-Stat ] 15 Ml 15 ml PO BID [facility] Last Admin: 02/18/17 10:01 Dose: Not Given Omeprazole (Prilosec Cap*) 20 mg PO DAILY@0730 [facility] Last Admin: 02/18/17 10:00 Dose: 20 mg Ondansetron HCl (Zofran Inj*) 4 mg IV Q4H PRN PRN Reason: NAUSEA/VOMITING Potassium Chloride (Klor Con Er Tab*) 40 meq PO DAILY [facility] Last Admin: 02/18/17 10:00 Dose: 40 meq Tamsulosin HCl (Flomax Cap*) 0.4 mg PO BEDTIME [facility] Last Admin: 02/17/17 22:32 Dose: 0.4 mg Warfarin Sodium (Coumadin Tab(*)) 2.5 mg PO 1700 [facility] Last Admin: 02/17/17 17:34 Dose: 2.5 mg Warfarin Sodium (Coumadin Tab(*)) 4 mg PO 1700 [facility] Last Admin: 02/17/17 17:33 Dose: 4 mg Vital Signs: Temp Pulse Resp BP Pulse Ox 97.3 F 72 18 100/58 99 02/18/17 11:34 02/18/17 11:34 02/18/17 11:34 02/18/17 11:34 02/18/17 11:34 Oxygen Devices in Use Now: None Appearance: Pale chronically ill appearing patient. Very pleasant and cooperative. Eyes: No Scleral Icterus, PERRLA Ears/Nose/Mouth/Throat: Clear Oropharnyx, Mucous Membranes Moist, - - poor dentition Neck: NL Appearance and Movements; NL JVP, Trachea Midline, No Thyroid Enlargement, Masses Respiratory: Symmetrical Chest Expansion and Respiratory Effort, Clear to Auscultation Cardiovascular: NL Sounds; No Murmurs; No JVD Abdominal: NL Sounds; No Tenderness; No Distention Lymphatic: No Cervical Adenopathy Extremities: No Clubbing, Cyanosis, - - trace edema Skin: No Rash or Ulcers, - - sacral decubitus, please refer to surgical consult Neurological: Alert and Oriented x 3 Lines/Tubes/Other Access: Clean, Dry and Intact Briggs, Clean, Dry and Intact Peripheral IV Nutrition: Taking PO's Result Diagrams: 02/17/17 10:45 02/17/17 10:45 Additional Lab and Data: 02/17/17 02/17/17 02/17/17 10:45 10:45 10:45 WBC 8.6 RBC 4.27 Hgb 10.8 L Hct 34 L MCV 79 L MCH 25 L MCHC 32 RDW 19 H Plt Count 262 MPV 8 Neut % (Auto) 72.8 Lymph % (Auto) 14.2 L Summers % (Auto) 11.4 H Eos % (Auto) 1.1 Baso % (Auto) 0.5 Absolute Neuts (auto) 6.3 Absolute Lymphs (auto) 1.2 Absolute Monos (auto) 1.0 H Absolute Eos (auto) 0.1 Absolute Basos (auto) 0 Absolute Nucleated RBC 0 Nucleated RBC % 0 INR (Anticoag Therapy) 2.32 H APTT 38.1 H Sodium 136 Potassium 3.4 L Chloride 106 Carbon Dioxide 21 L Anion Gap 9 BUN 27 H Creatinine 1.30 H Est GFR ( Amer) 70.6 Est GFR (Non-Af Amer) 54.9 BUN/Creatinine Ratio 20.8 H Glucose 117 H Lactic Acid Calcium 8.6 Total Bilirubin 0.90 AST 14 ALT 12 Alkaline Phosphatase 116 H Troponin I 0.01 Total Protein 6.9 Albumin 3.0 L Globulin 3.9 Albumin/Globulin Ratio 0.8 L Urine Color Urine Appearance Urine pH Ur Specific Flowood Urine Protein Urine Ketones Urine Blood Urine Nitrate Urine Bilirubin Urine Urobilinogen Ur Leukocyte Esterase Urine WBC (Auto) Urine RBC (Auto) Ur Squamous Epith Cells Urine Bacteria Urine Glucose Urine Ascorbic Acid 02/17/17 02/17/17 02/17/17 10:45 11:25 16:30 WBC RBC Hgb Hct MCV MCH MCHC RDW Plt Count MPV Neut % (Auto) Lymph % (Auto) Summers % (Auto) Eos % (Auto) Baso % (Auto) Absolute Neuts (auto) Absolute Lymphs (auto) Absolute Monos (auto) Absolute Eos (auto) Absolute Basos (auto) Absolute Nucleated RBC Nucleated RBC % INR (Anticoag Therapy) APTT Sodium Potassium Chloride Carbon Dioxide Anion Gap BUN Creatinine Est GFR ( Amer) Est GFR (Non-Af Amer) BUN/Creatinine Ratio Glucose Lactic Acid 1.9 0.7 Calcium Total Bilirubin AST ALT Alkaline Phosphatase Troponin I Total Protein Albumin Globulin Albumin/Globulin Ratio Urine Color Riana Urine Appearance Turbid Urine pH 6.0 Ur Specific Flowood 1.016 Urine Protein 2+(100 mg/dl) H Urine Ketones Negative Urine Blood 2+ H Urine Nitrate Negative Urine Bilirubin Negative Urine Urobilinogen Negative Ur Leukocyte Esterase 3+ H Urine WBC (Auto) 3+(>20/hpf) H Urine RBC (Auto) 3+(>10/hpf) H Ur Squamous Epith Cells Present H Urine Bacteria 1+ H Urine Glucose Negative Urine Ascorbic Acid * H Assess/Plan/Problems-Billing Assessment: - Patient Problems (1) Urinary catheter infection Current Visit: Yes Comment: Will continue patient on Cefepime (2) Sacral decubitus ulcer Current Visit: Yes Comment: Appreciate surgery assistance. Wound does not appear infected. Wet to dry NS dressing BID. Consider Plastic consult for wound flap as outpatient. Patient requesting diverting colostomy for comfort. Surgical previously had stated not a surgical candidate. (3) Afib Current Visit: Yes Comment: Continue Digoxin and Metoprololand coumadin. INR 2.32 ~ 02/17/2017 (4) OTILIA (acute kidney injury) Current Visit: Yes Comment: BMP pending. rehydrated via IVF (5) HTN (hypertension) Current Visit: Yes Comment: well controlled, normotensive (6) BPH w urinary obs/LUTS Current Visit: Yes Comment: continue Flomax and Briggs Catheter (7) DVT prophylaxis Current Visit: Yes Comment: Warfarin (8) DNR (do not resuscitate) Current Visit: Yes Comment: His Sister is his Surrogate HCP Status and Disposition: Inpatient
[2017-02-18 17:49] LABS: BUN/Creatinine Ratio 20.8 (8-20); Calcium 7.8 mg/dL (8.6-10.3); EGFR African American 94.5 (>60); EGFR Non-African American 73.5 (>60); Potassium 3.6 mmol/L (3.5-5.0)
[2017-02-18] MEDS: Warfarin TAB(*) 2.5 MG PO SCH (18:00)
[2017-02-18] MEDS: Digoxin TAB* 0.125 MG PO SCH (18:00)
[2017-02-18] MEDS: Warfarin TAB(*) 4 MG PO SCH (18:00)
[2017-02-18] MEDS: Tamsulosin CAP* 0.4 MG PO SCH (21:20)
[2017-02-19] MEDS: Cefepime(*) 1 GM in NS 0.9% 50 ML* 50 ML IVPB SCH (03:48)
[2017-02-19] MEDS: Potassium Chlor TAB* 20 MEQ TAB.ER PO SCH (09:00)
[2017-02-19] MEDS: Omeprazole CAP* 20 MG PO SCH (09:00)
[2017-02-19] MEDS: Cholecalciferol TAB* 1000 UNITS PO SCH (09:00)
[2017-02-19] MEDS: Ferrous Sulfate TAB* 325 MG PO SCH (09:00)
[2017-02-19] MEDS: Lactobacillus Acidophilu (GG)* 1 CAP CAP PO SCH (09:00)
[2017-02-19] MEDS: Ascorbic Acid TAB* 500 MG PO SCH (09:00)
[2017-02-19] MEDS: Magnesium Oxide TAB* 400 MG PO SCH (09:01)
[2017-02-19] MEDS: Metoprolol Tartrate TAB* 25 MG PO SCH (09:01)
[2017-02-19] MEDS: AMINO ACIDS PROTEIN HYDROLYSAT PO SCH (09:06)
[2017-02-19 12:29] VITALS: BP 97/53
--- NOTE | 2017-02-19 13:04 | DS ---
CC: Dr. Jeff Joya; [facility]* DISCHARGE SUMMARY: DATE OF ADMISSION: 02/17/17 DATE OF DISCHARGE: 02/19/17 PRIMARY CARE PROVIDER: Dr. Jeff Joya. CONSULTING SURGEON: Dr. Veliz. DISCHARGING PROVIDER: FRANCY Rowell. SUPERVISING PHYSICIAN: Yannick Calderon MD* (dictated by FRANCY Rowell). PRIMARY DISCHARGE DIAGNOSES: 1. Rapid atrial fibrillation - resolved. 2. Urinary tract infection associated with Briggs catheter growing Proteus with recommendations for another 8 days of cefuroxime. SECONDARY DISCHARGE DIAGNOSES: 1. Large sacral decubitus ulcer stage IV without secondary infection. 2. Chronic atrial fibrillation. 3. Coronary artery disease, status post non-ST elevation myocardial infarction. 4. History of upper extremity deep venous thrombosis associated with PICC. 5. History of alcoholic cirrhosis. 6. Hypertension. 7. Gastroesophageal reflux disease. 8. Chronic urinary retention. 9. History of epidural abscess. 10. Benign prostatic hypertrophy. HOSPITAL IMAGIN. Chest x-ray shows no acute process. 2. Initial EKG demonstrates atrial fibrillation with a rate of approximately 140 beats per minute. HOSPITAL COURSE: This is a 66-year-old gentleman who is resident at [facility] with chronic atrial fibrillation, a large sacral decubitus ulcer that has been present since April 2016 as well as history of prior DVT, history of epidural abscess, chronic urinary retention with an indwelling Briggs catheter, history of alcoholic cirrhosis, BPH, hypertension, GERD, and known coronary disease with a history of non-ST elevation [place], who presented to the emergency department from [facility] with complaints of shortness of breath. The patient was at the wound care clinic in the waiting room when he suddenly became diaphoretic, ashen and short of breath. He was found to be in rapid AFib with a rate of about 150 beats per minute. He was subsequently transferred to the emergency department and his rate improved with fluid resuscitation. The patient was also complaining of some urinary tract symptoms at that time and had been awaiting a surgical consultation regarding his sacral ulcer at the time he became symptomatic. The patient remained rate controlled throughout his hospital stay and he does have known chronic atrial fibrillation for which he is anticoagulated and his INR was therapeutic at 2.32 at the time of admission. His urinalysis was abnormal and Proteus eventually grew. He was empirically treated with cefepime and sensitivities eventually demonstrate he is resistant only to nitrofurantoin and tetracycline. The patient did receive surgical consultation during his hospital stay regarding his sacral decubitus ulcer. The patient would very much like to consider a diverting colostomy, as he has chronic diarrhea contributing to his inability to heal his ulcer. Per report, the patient has been told that he is not an ideal surgical candidate for a diverting colostomy and this was not commented on during his inpatient consultation. Regarding wound care management , wet-to-dry dressings with saline twice daily were recommended. Apparently, the patient has previously utilized a wound VAC without success due to the ulcer extending to near the anal verge. No evidence of secondary infection on exam. The patient remained asymptomatic throughout his hospital stay. He has oral options available to treat his Proteus and plans are for him to be discharged back to [facility]. DISPOSITION AND FOLLOWUP PLAN: The patient is being discharged to [facility]. Only change to medication is cefuroxime for the next 8 days. Wound care instructions include wet-to-dry dressings with saline, changed twice daily. We would also recommend considering a referral to Plastics to discuss whether he might be an appropriate candidate for a skin flap procedure due to the large area that is exposed and since he has essentially failed other wound care options over the last 9 to 10 months. The patient would also still like to consider a diverting colostomy and perhaps an alternate surgical opinion could be pursued as an outpatient. FRANCY ROWELL [id number]/[facility] #: [id number] ZURI
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
== END 2017-02-19 16:45 | DRG 308 ==
LOC: ED 10:33 → MEDTELE 13:53 → INTOOBSV 13:53
PROVIDERS: ADMIT Internal Medicine; ATTEND Internal Medicine
DX: I48.2 Chronic atrial fibrillation (principal); L89.154 Pressure ulcer of sacral region, stage 4; N17.9 Acute kidney failure, unspecified; K70.30 Alcoholic cirrhosis of liver without ascites; B19.10 Unspecified viral hepatitis B without hepatic coma; T83.511A Infection and inflammatory reaction due to indwelling urethral catheter, initial encounter; N39.0 Urinary tract infection, site not specified; I10 Essential (primary) hypertension; K21.9 Gastro-esophageal reflux disease without esophagitis; R33.9 Retention of urine, unspecified; Y73.1 Therapeutic (nonsurgical) and rehabilitative gastroenterology and urology devices associated with adverse incidents; Z66 Do not resuscitate; Z82.49 Family history of ischemic heart disease and other diseases of the circulatory system; N40.1 Benign prostatic hyperplasia with lower urinary tract symptoms; B96.4 Proteus (mirabilis) (morganii) as the cause of diseases classified elsewhere; Z16.29 Resistance to other single specified antibiotic; I25.2 Old myocardial infarction; Z86.718 Personal history of other venous thrombosis and embolism; Z87.891 Personal history of nicotine dependence; Y92.9 Unspecified place or not applicable; Z87.01 Personal history of pneumonia (recurrent); Z87.820 Personal history of traumatic brain injury; R40.2412 Glasgow coma scale score 13-15, at arrival to emergency department
CPT/HCPCS: 36415; 71010; 80048; 80053; 81003; 81015; 83605; 84484; 85025; 85610; 85730; 87040; 87077; 87086; 87186; 87641; 93005; A9270-GY; J0692; J0696; J1650; J2270; J3490

== ENCOUNTER 2017-05-07 15:22 | Inpatient (IN) | payer MEDICARE, BC, MEDICAID ==
[2017-05-07] MEDS ORDERED: NS 0.9% 1000 ML*IV.FLUID IV ONE (16:32)
[2017-05-07] MEDS ORDERED: Vancomycin(*) 1,500 MG in NS 0.9% 250 ML* 250 ML IVPB ONE (16:34)
[2017-05-07] MEDS ORDERED: Piperacillin/Tazobac ADVAN(*) 3.375 GM in NS 0.9% 100 ML* 100 ML IVPB ONE (16:34)
--- NOTE | 2017-05-07 17:03 | RAD ---
HISTORY: Sepsis COMPARISONS: February 17, 2017 VIEWS: 2: frontal portable view of the chest at 4:53 PM FINDINGS: LINES AND TUBES: None. CARDIOMEDIASTINAL SILHOUETTE: The cardiomediastinal silhouette is normal for portable technique. PLEURA: The costophrenic angles are sharp. No pleural abnormalities are noted. LUNG PARENCHYMA: The lungs are clear. ABDOMEN: There is gaseous distention of the colon BONES AND SOFT TISSUES: No bone or soft tissue abnormalities are noted. IMPRESSION: NO ACTIVE CARDIOPULMONARY DISEASE.
[2017-05-07 19:00] LABS: Hematocrit 33 % (42-52); Hemoglobin 10.5 g/dl (14.0-18.0); Mean Corpuscular HGB Conc 32 g/dl (31-36); Mean Corpuscular Hemoglobin 26 pg (27-31); Mean Corpuscular Volume 80 fL (80-94); Mean Platelet Volume 7 um3 (7.4-10.4); Red Blood Count 4.09 10^6/ul (4.0-5.4); Red Cell Distribution Width 18 % (10.5-15); White Blood Count 27.4 10^3/ul (3.5-10.8)
[2017-05-07 19:03] LABS: Comments Flag Yes
[2017-05-07 19:04] LABS: Add Diff/Slide Review? Slide Review Added
[2017-05-07] MEDS ORDERED: Clindamycin 600 MG IVPREMIX(* 600 MG/50 ML SDV IV ONE (19:11)
[2017-05-07 19:13] LABS: Albumin 2.4 g/dL (3.2-5.2); EGFR Non-African American 16.4 (>60); Total Bilirubin 0.8 mg/dL (0.2-1.0); Total Protein 5.4 g/dL (6.4-8.9)
[2017-05-07 19:15] LABS: Troponin I 0.06 ng/mL (<0.04)
[2017-05-07 19:19] LABS: Urine Bacteria Absent (Absent); Urine Bilirubin Negative (Negative); Urine Glucose Negative (Negative); Urine Nitrite Negative (Negative)
[2017-05-07] MEDS: NS 0.9% 1000 ML* 1,000 ML IV ONE ×2 (19:27→20:10)
--- NOTE | 2017-05-07 19:37 | RAD ---
CLINICAL HISTORY: Abdominal pain COMPARISON: July 11, 2016 TECHNIQUE: Multiple contiguous axial CT scans were obtained of the abdomen and pelvis, without intravenous contrast enhancement. Coronal and sagittal multiplanar reformations are submitted for review. Oral contrast was not administered. FINDINGS: The study is limited by the lack of intravenous contrast. This limits evaluation of the solid organs and vasculature. LUNG BASES: The lung bases are clear. LIVER: The liver is normal in shape, size, contour, and attenuation. BILE DUCTS: There is no intrahepatic or extrahepatic biliary dilatation. GALLBLADDER: Multiple gallstones are noted. There is no pericholecystic inflammatory change. PANCREAS: The pancreas is normal, without mass or ductal dilatation. SPLEEN: Normal in size and appearance. UPPER GI TRACT: Evaluation of the gastrointestinal tract is limited by incomplete gastric distention. The upper GI tract is unremarkable. SMALL BOWEL AND MESENTERY: The small bowel is normal in contour, course, and caliber. There is no obstruction or dilatation. COLON: There is gaseous distention of the colon with mild diffuse dilatation extending to the level of the rectum. There is scattered high attenuation high attenuation material within the colon which may reflect residual oral contrast versus pill fragments.. ADRENALS: Normal bilaterally. KIDNEYS: The kidneys are normal in shape, size, contour, and axis. There is no hydronephrosis or nephrolithiasis. BLADDER: The bladder is collapsed and a Briggs catheter. PELVIC ORGANS: The prostate gland is normal. The seminal vesicles are symmetric. AORTA: There is calcific atherosclerotic disease of the abdominal aorta and its branches, without aneurysmal dilatation IVC: IVC filter is noted LYMPH NODES: There is no lymphadenopathy by size criteria. ABDOMINAL WALL: There is no evidence for abdominal wall hernia. BONES AND SOFT TISSUES: Degenerative changes are noted along the spine. There has been interval improvement of the sacrococcygeal region due to the sulci, with small amount of residual ulceration. There is persistent erosion of the coccyx, stable. There is postsurgical change to the spine. OTHER: None IMPRESSION: 1. THERE IS DIFFUSE DISTENTION AND MILD DILATATION OF THE COLON EXTENDING TO THE RECTUM. THIS MAY REFLECT SOME OBSTRUCTION VERSUS DISTAL COLONIC OBSTRUCTION, INCLUDING FROM RECTAL NEOPLASM. RECOMMEND CONSIDERATION OF DIRECT VISUALIZATION. 2. CHOLELITHIASIS. 3. AGAIN NOTED IS A SACRAL DECUBITUS ULCER WITH EROSIVE CHANGES OF THE COCCYX, STABLE TO SOMEWHAT IMPROVED COMPARED TO JULY 11, 2016..
[2017-05-07] MEDS ORDERED: NS 0.9% 1000 ML* 1,000 ML IV ONE (19:51)
[2017-05-07 20:03] LABS: Digoxin 0.9 ng/ml (0.8-2.0)
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
--- NOTE | 2017-05-07 20:45 | RAD ---
HISTORY: Penile swelling scrotal swelling COMPARISONS: CT dated May 07, 2017, CT dated July 11, 2016 TECHNIQUE: Multiple transverse and longitudinal ultrasound images were obtained of the scrotum, using grayscale, color Doppler, and spectral Doppler imaging. FINDINGS: RIGHT: RIGHT TESTICLE: The right testicle is not identified.. RIGHT EPIDIDYMIS: The right epididymis is not identified.. RIGHT SCROTUM: There is extensive scrotal wall swelling LEFT: LEFT TESTICLE: The left testicle measures 3 x 1.8 x 3.1 cm. The left testicle is homogeneous in echotexture, without testicular parenchymal mass. Normal arterial and venous waveforms are identified within the left testicle on spectral Doppler imaging. LEFT EPIDIDYMIS: The left epididymis measures 0.9 cm at the head. LEFT SCROTUM: There is a small hydrocele. There is extensive scrotal wall edema. OTHER: None IMPRESSION: 1. EXTENSIVE SCROTAL WALL EDEMA. THE DIFFERENTIAL INCLUDES SANJAY'S GANGRENE IN THE CORRECT CLINICAL SETTING. 2. NO RIGHT TESTICLE OR EPIDIDYMIS IS IDENTIFIED. PLEASE CORRELATE WITH ANY HISTORY OF ORCHIECTOMY.
[2017-05-07] MEDS ORDERED: Vancomycin(*) 1,000 MG in NS 0.9% 250 ML* 250 ML IVPB SCH (21:00)
[2017-05-07] MEDS ORDERED: NS 0.9% 1000 ML* 2,000 ML IV ONE (21:01)
[2017-05-07] MEDS ORDERED: oxyCODONE TAB* 5 MG TAB PO PRN (21:02)
[2017-05-07] MEDS ORDERED: Acetaminophen TAB* 325 MG PO PRN (21:07)
[2017-05-07] MEDS ORDERED: Morphine INJ* 2 MG/ML 1 ML SYRINGE (TWO MG - NEW SYRINGE VERSION) IV PRN (21:07)
[2017-05-07] MEDS ORDERED: Vancomycin per Pharmacy* NOTE FOLLOW UP PRN (21:28)
[2017-05-07] MEDS: NS 0.9% 1000 ML* 1,000 ML IV SCH (22:45)
[2017-05-07] MEDS: Digoxin TAB* 0.125 MG PO SCH (23:33)
[2017-05-07] MEDS ORDERED: Norepinephrine 16MCG/ML IVPRE* 4,000 MCG/250 ML BAG IV SCH (23:45)
[2017-05-07] MEDS: Piperacillin/Tazobac ADVAN(*) 3.375 GM in NS 0.9% 100 ML* 100 ML IVPB SCH (23:51)
--- NOTE | 2017-05-08 00:53 | HP ---
CC: Dr. Joya; Dr. Rowland; Dr. Resendiz * HISTORY AND PHYSICAL: DATE OF ADMISSION: 05/07/17 PRIMARY CARE PROVIDER: Dr. Joya. CHIEF COMPLAINT: Scrotal swelling. HISTORY OF PRESENT ILLNESS: Milton Molina is a 66-year-old male with a history of alcoholic liver cirrhosis as well as chronic kidney disease; atrial fibrillation, which is chronic; pulmonary embolism, status post [place] filter placement, who has chronic urinary retention due to BPH and has chronic Briggs catheter in place. The patient also has chronic deconditioning and he is a resident of our local detention, [facility]. The patient was noted to have scrotal edema today and he presented to the emergency department for evaluation. Here, his pressures were in the 60s systolically. His heart rate was in the low one hundred teens. The patient has marked leukocytosis and is being diagnosed with sepsis due to scrotal cellulitis as well as orchitis and epididymitis as well as UTI. PAST MEDICAL HISTORY: 1. History of alcoholic liver cirrhosis. 2. History of chronic kidney disease in the past, although most recent creatinine prior to today's presentation was normal. 3. History of hepatitis B. 4. History of chronic atrial fibrillation, on anticoagulation with Coumadin. 5. History of pulmonary embolism, status post [place] filter. 6. Hypertension. 7. BPH with urinary retention and chronic Briggs catheter in place. 8. History of falls. 9. History of epidural abscess, status post surgical intervention by Dr. Yoo in April of 2016 for decompressive laminectomy. 10. History of septic arthritis of the left ankle. The patient has a hardware in it. 11. History of sacral decubitus and chronic osteomyelitis in the area. MEDICATIONS: At [facility], include: 1. Coumadin 6 mg daily. 2. Vitamin B12 1000 mcg IM monthly. 3. Digoxin 0.125 mg daily. 4. Ferrous sulfate 325 mg daily. 5. Omeprazole 40 mg daily. 6. Flomax 0.4 mg at bedtime. 7. Toprol-XL 25 mg daily. 8. Vitamin D 2000 units daily. 9. Vitamin C 500 mg b.i.d. 10. Doxycycline 100 mg b.i.d. for epididymitis started on 05/07/17. 11. Mag-Ox 800 mg b.i.d. 12. Potassium chloride 20 mEq b.i.d. 13. Pro-Stat liquid 15 mL b.i.d. for wound healing. 14. Med Pass dietary supplements 120 mL 3 times a day. 15. Oxycodone 5 mg every 4 hours p.r.n. pain. 16. Rocephin 1 g. The patient received 1 dose IM prior to leaving the hospital today. The patient has wet-to-dry dressings applied to sacral decubitus on a daily basis. ALLERGIES: No known drug allergies. FAMILY HISTORY: The patient's brother had a history of diabetes and heart disease. SOCIAL HISTORY: The patient has a history of alcoholism, currently in remission. He is at [facility], long-term resident. He is ambulating with a walker. REVIEW OF SYSTEMS: Please see history of present illness. Despite the patient being alert and oriented x3, he is a rather poor historian. He stated that his scrotum became edematous today. He has no other complaints. His Briggs was exchanged in the emergency department and was noted not draining prior to the exchange. All the remaining 12 systems were reviewed with the patient and were otherwise negative. PHYSICAL EXAMINATION GENERAL: The patient is a pleasant 66-year-old male who appears chronically ill. The patient is in no acute distress. Alert and oriented x3 with poor recall. VITAL SIGNS: Blood pressure of 81/52, heart rate of 106 and irregular, respiratory rate 15, oxygen saturation 95% on 2 L of oxygen nasal cannula, temperature of 99.0. HEENT: Head: Atraumatic, normocephalic. Eyes: Pupils are equal and reactive to light and accommodation. Oropharynx clear. Mucosa dry. NECK: Supple. No JVD. No bruits bilaterally. RESPIRATORY: Clear to auscultation bilaterally. CARDIOVASCULAR: Irregularly irregular rhythm. No murmurs. ABDOMEN: Soft, minimally tender in the right lower quadrant, with no rebound, no guarding. Bowel sounds present in all 4 quadrants. GENITOURINARY: On evaluation of the patient's groin region, the patient has penile edema as well as scrotal edema. The entire scrotum is exquisitely tender to palpation. There is also erythema noted surrounding the penis and the scrotum consistent with cellulitis. EXTREMITIES: There is no edema. The left ankle is definitely wider than the right due to history of hardware on the left. Once again, there is no edema. There is no clubbing or cyanosis. Pulses are +2 bilaterally. NEUROLOGIC: Speech is clear. Cranial nerves II through XII grossly intact. Motor strength is 5/5 bilaterally. PSYCHIATRIC: Oriented x3, poor recall. No evidence of anxiety or depression. SKIN: On evaluation of the skin apart from the above mentioned, the patient has a sacral decubitus of approximately 4 cm deep and 6 cm in diameter. There is no purulent discharge noted. There is no slough noted. The decubitus is clean with wet packing in place. It appears to be down to the bone. DIAGNOSTIC STUDIES/LAB DATA: Showed white blood cell count of 27.4, hemoglobin 10.5, hematocrit of 33, and platelets of 251. INR was 4.3. Sodium was 136, potassium 4.0, chloride 111, carbon dioxide 14, BUN 63, creatinine 3.7. Liver function tests were unremarkable. Possible mild elevation of alkaline phosphatase of 107. Troponin 0.06. Lactic acid was 2. Urinalysis grossly positive for UTI with +3 wbc's, rbc's, and esterase. Positive for calcium oxalate crystals. CT of the abdomen and pelvis obtained today in the emergency department, impression: "There is diffuse distention and mild dilatation of the colon extending to the rectum. This may reflect stool obstruction versus distal colonic obstruction including from rectal neoplasm. Recommended consideration of direct visualization. Cholelithiasis. Again noted there is a sacral decubitus ulcer with erosive changes in the coccyx, stable to somewhat improved comparing with June 2016." Furthermore, in the body of the report, it also was noted that the patient has diffuse dilatation of the colon with scattered high attenuation material within the colon that appears to be pill fragments. Testicular ultrasound obtained today, impression: "Extensive scrotal wall edema. Differential includes Talisha's gangrene in the correct clinical setting. No right testicle or epididymis is identified. Please correlate with any history of orchiectomy." Portable chest x-ray, impression: "No active cardiopulmonary disease." The patient's EKG showed atrial fibrillation with a heart rate of 153 beats per minute with ST depressions in lateral leads and inverted T waves in lateral leads in leads V4 and V6. Comparing with prior EKGs obtained in January of 2017, the changes are similar. ASSESSMENT AND PLAN: The patient has severe sepsis and is in septic shock due to scrotal cellulitis, penile cellulitis. The patient was also seen by Dr. Rowland in Urology consultation in the emergency department and was noted to have no Talisha's gangrene, but likely epididymitis and orchitis. The patient is going to be placed on broad-spectrum antibiotics and with his prior history of methicillin- resistant Staphylococcus aureus, pseudomonas, and proteus infection , the patient is going to be placed on Zosyn and vancomycin. The patient has already received 4 L of intravenous hydration. We will provide another couple of liters of intravenous hydration boluses and then continue normal saline. I discussed the patient's case with Dr. Resendiz, the architecture consultant. Due to the patient's INR being over 4, placement of triple lumen catheter may pose certain risk. The patient has two 18-gauge peripheral IVs that if needed pressors could be administered through. For the time being, the patient is maintaining well. His lactic acid is 2. At this point, we will continue resuscitation with intravenous fluids prior to starting pressors. 1. In regards to the patient's possibility of bowel obstruction, the patient's abdominal exam is pretty benign. He does appear to have a lot of pill fragments that may cause impaction of the rectum. At this point, we will continue treating this severe sepsis and septic shock, but later on the patient will require further intervention, maybe a GI consult in the future. For the time being, the patient is going to be placed on clear liquid diet. 2. In regards to the patient's history of atrial fibrillation, currently, the patient's heart rate has actually normalized to 105 beats per minute. I will continue his digoxin , level today was 0.7 ans acceptable despite being acute renal failure. His metoprolol is going to be held due to hypotension. Also, his Coumadin is going to be held due to the INR being supratherapeutic. 3. In regards to the patient's chronic sacral osteomyelitis and decubitus ulcer , Wound Care is going to be asked to consult on the patient. For the time being , we will provide wet-to-dry dressings on a daily basis. Please note that the patient's sacral decubitus does not appear to be infected. 4. For the patient's benign prostatic hyperplasia, his Briggs catheter was exchanged in the emergency department. Purulent urine was obtained. At this point, the patient's Flomax is going to be held due to hypotension. 5. The patient's acute renal failure is due to possibility of Briggs obstruction when the patient came in, but also due to severe sepsis and septic shock. We will continue following his creatinine throughout his hospital stay. 6. For code status, the patient is do not resuscitate and he agrees with continuation of do not resuscitate. 7. Please note that his surrogate decision making person is his sister, Kelsi. 8. For DVT prophylaxis, the patient is anticoagulated with Coumadin. His INR is going to be checked on a daily basis due to being supratherapeutic today. His Coumadin is going to be held. TIME SPENT: Approximately 75 minutes was spent on admission of this critical care patient. [id number] #: [id number] ZURI
[2017-05-08] MEDS ORDERED: Norepinephrine VIAL* 4 MG in NS 0.9% 250 ML* 246 ML IVPB SCH (01:00)
[2017-05-08] MEDS: NS 0.9% 1000 ML* 1,000 ML IV SCH ×3 (05:00→22:13)
[2017-05-08] MEDS ORDERED: Vancomycin Random Level* NOTE FOLLOW UP ONE (06:00)
[2017-05-08] MEDS: Magnesium Oxide TAB* 400 MG PO SCH ×2 (08:22→22:01)
[2017-05-08] MEDS: Ferrous Sulfate TAB* 325 MG PO SCH (08:22)
[2017-05-08] MEDS: Omeprazole CAP* 20 MG PO SCH (08:22)
[2017-05-08] MEDS: Piperacillin/Tazobac ADVAN(*) 3.375 GM in NS 0.9% 100 ML* 100 ML IVPB SCH ×3 (08:30→23:59)
[2017-05-08 08:35] LABS: Hematocrit 30 % (42-52); Hemoglobin 9.5 g/dl (14.0-18.0); Mean Corpuscular HGB Conc 32 g/dl (31-36); Mean Corpuscular Hemoglobin 25 pg (27-31); Mean Corpuscular Volume 80 fL (80-94); Mean Platelet Volume 7 um3 (7.4-10.4); Red Blood Count 3.74 10^6/ul (4.0-5.4); Red Cell Distribution Width 18 % (10.5-15); White Blood Count 20.6 10^3/ul (3.5-10.8)
[2017-05-08 08:56] LABS: Albumin 2.4 g/dL (3.2-5.2); BUN/Creatinine Ratio 18.8 (8-20); Calcium 8.1 mg/dL (8.6-10.3); EGFR African American 22.8 (>60); EGFR Non-African American 17.7 (>60); Globulin 3.1 g/dL (2-4); Potassium 3.7 mmol/L (3.5-5.0); Total Bilirubin 0.6 mg/dL (0.2-1.0); Total Protein 5.5 g/dL (6.4-8.9)
[2017-05-08 09:50] LABS: Vancomycin Random 13.4 mcg/mL
[2017-05-08] MEDS ORDERED: Phytonadione Oral Solution* 5 MG/25 ML UDC PO ONE (10:33)
--- NOTE | 2017-05-08 12:19 | PN ---
Date of Service: 05/08/17 - [facility] note Critical Care Services: Pt seen and examined at bedside this am. Pt denies pain or discomfort, denied SOB. Is on low dose levophed. Remains tachycardic. Was admitted last night from [facility] for scrotal swelling, was found to be hypotensive and was admitted for septic shock sec to scrotal cellulitis. He is chronically bedridden, has sacral decub and osteomyelitis. No concern for Fourniers gangrene, was seen by Urology this am. Pt on Coumadin for A.fib, had IVC filter palcemenent for PE. INR elevated at 7, no active bleeding. PMHx, PSHx, Social Hx were reviewed, unchanged from HPI ROS: A above all 14 systems reviewed Vital Signs: Temp Pulse Resp BP SpO2 FiO2 99.7 F 108 20 77/47 96 05/08/17 08:00 05/08/17 09:47 05/08/17 09:47 05/08/17 09:47 05/08/17 09:47 Physical Exam: Gen: Pt lying in bed in NAD, alert, awake, oriented x3 HEENT: PERRLA, No JVD Lungs: Clear to asucultation, diminished air entry b/l at bases Cardiac: S1, S2+, irregular Abdomen: Soft, BS+ Extremities: Normal ROM Skin: Cellulitis of scrotum, stage-4 decub of sacrum Neuro: Alert, awake oriented Fluid Balance (Past 24 Hours): N=1644 O=470 Net 1616 Intake & Output 05/06/17 05/07/17 05/08/17 05/09/17 06:59 06:59 06:59 06:59 Intake Total 2086 Output Total 470 Balance 1616 Weight 207 lb 7.28 oz Intake: IV Fluids 1849 LR 500 NS (0.9%) 1349 IVPB 115 ABX - VANCOMYCIN 115 Medicated IV 122 CC - Norepinephrine/ 122 Levophed Output: Briggs 470 Labs: Laboratory Results - last 24 hr 05/07/17 05/08/17 05/08/17 22:47 08:15 08:15 WBC 20.6 H RBC 3.74 L Hgb 9.5 L Hct 30 L MCV 80 MCH 25 L MCHC 32 RDW 18 H Plt Count 237 MPV 7 L Neut % (Auto) 91.9 H Lymph % (Auto) 3.1 L [place] % (Auto) 4.0 Eos % (Auto) 0.8 Baso % (Auto) 0.2 Absolute Neuts (auto) 18.9 H Absolute Lymphs (auto) 0.6 L Absolute Monos (auto) 0.8 Absolute Eos (auto) 0.2 Absolute Basos (auto) 0 Absolute Nucleated RBC 0 Nucleated RBC % 0 INR (Anticoag Therapy) Sodium 140 Potassium 3.7 Chloride 113 H Carbon Dioxide 16 L Anion Gap 11 BUN 65 H Creatinine 3.46 H Est GFR ( Amer) 22.8 Est GFR (Non-Af Amer) 17.7 BUN/Creatinine Ratio 18.8 Glucose 72 Lactic Acid 2.7 H* Calcium 8.1 L Total Bilirubin 0.60 AST 14 ALT 14 Alkaline Phosphatase 107 H Total Protein 5.5 L Albumin 2.4 L Globulin 3.1 Albumin/Globulin Ratio 0.8 L Random Vancomycin 13.4 05/08/17 05/08/17 08:15 08:15 WBC RBC Hgb Hct MCV MCH MCHC RDW Plt Count MPV Neut % (Auto) Lymph % (Auto) [place] % (Auto) Eos % (Auto) Baso % (Auto) Absolute Neuts (auto) Absolute Lymphs (auto) Absolute Monos (auto) Absolute Eos (auto) Absolute Basos (auto) Absolute Nucleated RBC Nucleated RBC % INR (Anticoag Therapy) 7.36 H* Sodium Potassium Chloride Carbon Dioxide Anion Gap BUN Creatinine Est GFR ( Amer) Est GFR (Non-Af Amer) BUN/Creatinine Ratio Glucose Lactic Acid 2.1 H* Calcium Total Bilirubin AST ALT Alkaline Phosphatase Total Protein Albumin Globulin Albumin/Globulin Ratio Random Vancomycin Studies: U/S scrotum: Extensive scrotal wall edema Abd CT: Diffuse distention and dialtion of colon to r/o obstruction. Scaterred high attentuation density in colon- oral contrast versus residual pill fragments Nutrition: Clear liquid diet, to be advanced as tolerated Impression: 66 y o m resident of [facility] with sacral decub and OM a/w scrotal wall edema sec to cellulitis 1. Scrotal cellulitis 2. Septic shock 3. Sacral decub stage-4 with chronic Om present on admission 4. Distention of colon, to r/o obstruction/malignancy 5. A.fib, rate controlled 6. Lactic acidosis sec to sepsis 7. Elevated INR, sec to sepsis and Coumadin 8. Acute renal failure 9. Leucocytosis, anemia 10. Hypoalbuminemia, nutritional Plan: Neuro: Alert, awake oriented, no signs of encephalopathy Resp: Saturating well on RA CVS: Septic shock on Levophed 3-5mcg, titrate as tolerated, PICC line palced for infusion of pressors and medications, A.fib on Digoxin, tachycardia permissible given sepsis. Coumadin on hold sec to elevated INR, will trend daily and dose as needed ID: Septic shock sec to scrotal cellulitis, seen by Urology, no gangrene, on broad spectrum abx, will monitor lactate, sacral decub, wound care to follow Renal: Acute renal failure sec to sepsis, c/w IV hydration, monitoring renal status and UO closely, no electrolyte abnormalities Endo: Glucose well controlled, will start stress dose steroids for sepsis Haem: Anemia of chronic disease, leucocytosis sec to sepsis. GI: Clear liquid diet to be advanced as tolerated. Distention of colon and suggestion of possible obstruction at level of rectum- sec to stool versus malignancy. Will need f/u CT abd and management as per results. No signs of bowel obstruction at this point Musculoskletal/Integumentary: Wound care for sacral decub, frequent turnign and positioning Psycho/social: Family at bedside and were updated IV access: PICC line placed for pressors Foely catheter palcement to prevent worsening of decub, urinary output monitoring in septic patient Supportive and preventive care as ordered DVT Px: Pt on Coumadin with elevated INR , Had IVC filter placed Critical Care Time: 45 min
[2017-05-08] MEDS ORDERED: Hydrocortisone INJ* 100 MG VIAL IM SCH (13:00)
--- NOTE | 2017-05-08 13:12 | RAD ---
Indication: PICC line placement. Single frontal view of the chest performed at 1250 hours was reviewed. Comparison is made with previous exam dated May 07, 2017. No mediastinal shift is noted. Heart is of normal size and configuration. Lung ybarra appear clear. PICC line appears to be in the superior vena cava. No pneumothorax is noted. IMPRESSION: NO ACTIVE CARDIOPULMONARY DISEASE IS NOTED. PICC LINE IS IN THE SUPERIOR VENA CAVA.
[2017-05-08] MEDS ORDERED: Perflutren Lipid Microsphere* 3 ML VIAL ONE (13:16)
[2017-05-08] MEDS: Norepinephrine VIAL* 4 MG in NS 0.9% 250 ML* 246 ML IVPB SCH ×2 (14:00→14:59)
[2017-05-08] MEDS ORDERED: Hydrocortisone INJ* 100 MG VIAL IV SCH (14:13)
--- NOTE | 2017-05-08 15:05 | ECHO ---
Patient: MOODY MATTSON [facility] Rec#: [id number] : 1950 Date: 05/08/2017 Age: 66y Height: 191 cm / 75.2 in Weight: 94 kg / 207.2 lbs Sex: M BSA: 2.23 Room#: [facility] Admit Date#: 05/07/2017 Type: Inpatient Referring: NILAY TOLEDO Reading: Eliu Shell MD Bariatric Physician: Danielle Garcia RDCS CC: Jeff Joya Transthoracic Echocardiogram Indication: Hypotension BP: 77/47 HR: 107 Rhythm: NSR Findings History: ETOH cirrhosis,CKD,Hep B,a-fib,s/p Karlee filter due to PE,HTN,osteomyelitis. Levophed gtt. running during this study at 5mcg/min. Technical Comments: The study is technically limited due to patient body habitus. Definity used to enhance images. Left Ventricle: The left ventricular chamber size is normal. Global left ventricular wall motion and contractility are within normal limits. There is normal left ventricular systolic function. The estimated ejection fraction is 50-55%. There is septal flattening of the interventricular septum consistent with right ventricular volume or pressure overload. The assessment of diastolic function is non-diagnostic. Left Atrium: The left atrial chamber size is normal. Right Ventricle: The right ventricle is mild to moderately dilated. The right ventricular global systolic function is mildly to moderately reduced. Right Atrium: The right atrium is moderately dilated. Aortic Valve: The aortic valve structure is not well visualized. The aortic valve leaflets are mildly thickened. There is no evidence of aortic regurgitation. There is no evidence of aortic stenosis. Mitral Valve: The mitral valve leaflets are mildly thickened. There is a trace of mitral regurgitation. There is no evidence of mitral stenosis. Tricuspid Valve: The tricuspid valve leaflets are normal. There is mild tricuspid regurgitation. There is evidence of mild pulmonary hypertension. There is no tricuspid stenosis. Pulmonic Valve: The pulmonic valve structure is not well visualized. The pulmonic valve appears normal. Pericardium: A pericardial fat pad is visualized. Aorta: The ascending aorta is not well visualized. There is no dilatation of the aortic arch. There is mild dilatation of the aortic root. Pulmonary Artery: The main pulmonary artery is not well visualized. Venous: The venous system is not well visualized. Contrast: Definity was used to optimize study. 4 ml used. Intravenous contrast was used to enhance endocardial border definition. Conclusions The estimated ejection fraction is 50-55%. There is septal flattening of the interventricular septum consistent with right ventricular volume or pressure overload. The aortic valve leaflets are mildly thickened. There is a trace of mitral regurgitation. There is mild tricuspid regurgitation. There is evidence of mild pulmonary hypertension. The right atrium is moderately dilated. Similar to 06/2016 except that the ascending aorta was reported as moderately dilated at 4.5 cm; the ascending aorta was not seen on today's study. Consider CT evaluation if indicated. Measurements Name Value Normal Range RVIDd (AP) 2D 5.2 cm (0.9 - 2.6) RVDdMajor (2D) 4.4 cm (2.2 - 4.4) RAd ISD 4CH 6.4 cm (3.4 - 4.9) RA (A4C)W 5 cm (2.9 - 4.6) IVSd (2D) 1 cm (0.6 - 1) LVPWd (2D) 1 cm (0.6 - 1) LVIDd (2D) 4.9 cm (3.6 - 5.4) LVIDs (2D) 4 cm - LV FS (2D) 20 % (25 - 45) Aortic Annulus 2.3 cm (1.4 - 2.6) Ao root diameter (2D) 3.9 cm (2.1 - 3.5) Aortic arch 3 cm (1.8 - 3.4) Descending Ao 0.7 cm - LA dimension (AP) 2D 3.3 cm (2.3 - 3.8) LAd ISD 4CH 5.6 cm (2.9 - 5.3) LA ISD 4CH W 4.9 cm (2.5 - 4.5) Name Value Normal Range MV E-wave Vmax 1.3 m/sec - MV deceleration time 181 msec - LV septal e' Vmax 0.1 m/sec - LV lateral e' Vmax 0.08 m/sec - LV E:e' septal ratio 13 ratio - LV E:e' lateral ratio 16.25 ratio - Name Value Normal Range AV Vmax 1.7 m/sec - AV VTI 28.5 cm - AV peak gradient 11.32 mmHg - AV mean gradient 5.86 mmHg - LVOT Vmax 1.1 m/sec - LVOT VTI 18.1 cm - LVOT peak gradient 5.03 mmHg - LVOT mean gradient 2.33 mmHg - Name Value Normal Range TR Vmax 2.7 m/sec - TR peak gradient 31 mmHg - RAP 8 mmHg - RVSP 39 mmHg - Name Value Normal Range PV Vmax 0.4 m/sec - PV peak gradient 0.74 mmHg -
[2017-05-08] MEDS ORDERED: Vancomycin 1500 MG IV - x ONCE IVPB ONE ×2 (16:00)
[2017-05-08 16:49] LABS: Hematocrit 27 % (42-52); Hemoglobin 8.7 g/dl (14.0-18.0); Mean Corpuscular HGB Conc 32 g/dl (31-36); Mean Corpuscular Hemoglobin 26 pg (27-31); Mean Corpuscular Volume 80 fL (80-94); Mean Platelet Volume 7 um3 (7.4-10.4); Red Cell Distribution Width 18 % (10.5-15); White Blood Count 18.7 10^3/ul (3.5-10.8)
[2017-05-08 17:03] LABS: BUN/Creatinine Ratio 18.6 (8-20); Calcium 7.5 mg/dL (8.6-10.3); EGFR African American 25.8 (>60); EGFR Non-African American 20.1 (>60); Potassium 3.2 mmol/L (3.5-5.0)
[2017-05-08] MEDS: Digoxin TAB* 0.125 MG PO SCH (21:59)
[2017-05-08] MEDS: Hydrocortisone INJ* 100 MG VIAL IV SCH (22:01)
[2017-05-09] MEDS: Hydrocortisone INJ* 100 MG VIAL IV SCH ×3 (05:37→22:45)
[2017-05-09] MEDS: Norepinephrine VIAL* 4 MG in NS 0.9% 250 ML* 246 ML IVPB SCH ×2 (05:50→15:40)
[2017-05-09] MEDS: NS 0.9% 1000 ML* 1,000 ML IV SCH ×3 (05:59→23:50)
--- NOTE | 2017-05-09 07:40 | PN ---
Date of Service: 05/09/17 - [facility] progress note Critical Care Services: Pt seen and examined at bedside. Pt did well last night. He is off Levophed. A.fib is rate controlled. No new complaints this am. Vital Signs: Temp Pulse Resp BP SpO2 FiO2 97.4 F 82 17 116/70 99 05/09/17 04:00 05/09/17 06:15 05/09/17 06:15 05/09/17 06:15 05/09/17 06:15 Physical Exam: Gen: Pt in NAD HEENT: PERRLA, No JVD Lungs: Good air entry b/l, diminished at bases Cardiac: S1, S2+, irregular Abdomen: Soft, Bs+ Extremities: Normal ROM Neuro: No focal defecits, alert, oriented x3 Skin: No rash, Sacral decub stage-4, Scrotal and penile edema and sloughing Fluid Balance (Past 24 Hours): I= 4859 O= 2050 Net 2809 Intake & Output 05/07/17 05/08/17 05/09/17 05/10/17 06:59 06:59 06:59 06:59 Intake Total 2086 4859 Output Total 470 2050 Balance 1616 2809 Weight 207 lb 7.28 oz 210 lb 12.191 oz Intake: IV Fluids 1849 4172 ABX - PIPERACILLIN 174 ABX - VANCOMYCIN 265 LR 500 NS (0.9%) 1349 3733 IVPB 115 105 ABX - VANCOMYCIN 115 NS (0.9%) 105 Medicated IV 122 132 CC - Norepinephrine/ 122 132 Levophed Oral 450 Output: Briggs 470 2050 Other: # Bowel Movements 1 Estimated Stool Amount Medium Labs: Laboratory Results - last 24 hr 05/08/17 05/08/17 05/08/17 08:15 08:15 08:15 WBC 20.6 H RBC 3.74 L Hgb 9.5 L Hct 30 L MCV 80 MCH 25 L MCHC 32 RDW 18 H Plt Count 237 MPV 7 L Neut % (Auto) 91.9 H Lymph % (Auto) 3.1 L [place] % (Auto) 4.0 Eos % (Auto) 0.8 Baso % (Auto) 0.2 Absolute Neuts (auto) 18.9 H Absolute Lymphs (auto) 0.6 L Absolute Monos (auto) 0.8 Absolute Eos (auto) 0.2 Absolute Basos (auto) 0 Absolute Nucleated RBC 0 Nucleated RBC % 0 INR (Anticoag Therapy) Sodium 140 Potassium 3.7 Chloride 113 H Carbon Dioxide 16 L Anion Gap 11 BUN 65 H Creatinine 3.46 H Est GFR ( Amer) 22.8 Est GFR (Non-Af Amer) 17.7 BUN/Creatinine Ratio 18.8 Glucose 72 Lactic Acid 2.1 H* Calcium 8.1 L Total Bilirubin 0.60 AST 14 ALT 14 Alkaline Phosphatase 107 H Total Protein 5.5 L Albumin 2.4 L Globulin 3.1 Albumin/Globulin Ratio 0.8 L Random Vancomycin 13.4 05/08/17 05/08/17 05/08/17 08:15 16:45 16:45 WBC 18.7 H RBC 3.40 L Hgb 8.7 L Hct 27 L MCV 80 MCH 26 L MCHC 32 RDW 18 H Plt Count 178 MPV 7 L Neut % (Auto) 92.2 H Lymph % (Auto) 2.6 L [place] % (Auto) 3.7 Eos % (Auto) 0.9 Baso % (Auto) 0.6 Absolute Neuts (auto) 17.3 H Absolute Lymphs (auto) 0.5 L Absolute Monos (auto) 0.7 Absolute Eos (auto) 0.2 Absolute Basos (auto) 0.1 Absolute Nucleated RBC 0.03 Nucleated RBC % 0.1 INR (Anticoag Therapy) 7.36 H* Sodium 136 Potassium 3.2 L Chloride 114 H Carbon Dioxide 16 L Anion Gap 6 BUN 58 H Creatinine 3.11 H Est GFR ( Amer) 25.8 Est GFR (Non-Af Amer) 20.1 BUN/Creatinine Ratio 18.6 Glucose 121 H Lactic Acid Calcium 7.5 L Total Bilirubin AST ALT Alkaline Phosphatase Total Protein Albumin Globulin Albumin/Globulin Ratio Random Vancomycin 05/09/17 05/09/17 05/09/17 05:35 05:35 05:35 WBC RBC Hgb Hct MCV MCH MCHC RDW Plt Count MPV Neut % (Auto) Lymph % (Auto) [place] % (Auto) Eos % (Auto) Baso % (Auto) Absolute Neuts (auto) Absolute Lymphs (auto) Absolute Monos (auto) Absolute Eos (auto) Absolute Basos (auto) Absolute Nucleated RBC Nucleated RBC % INR (Anticoag Therapy) 3.26 H Sodium Potassium Chloride Carbon Dioxide Anion Gap BUN Creatinine Est GFR ( Amer) Est GFR (Non-Af Amer) BUN/Creatinine Ratio Glucose Lactic Acid 0.6 Calcium Total Bilirubin AST ALT Alkaline Phosphatase Total Protein Albumin Globulin Albumin/Globulin Ratio Random Vancomycin 16.8 Studies: ECHO: Normal EF, RV overload, mild pulm HTN, ascending aorta moderately dilated Nutrition: Regular diet Impression: 66 y o m resident of [facility] with sacral decub and OM a/w scrotal wall edema sec to cellulitis 1. Scrotal cellulitis 2. Septic shock resolved 3. Sacral decub stage-4 with chronic OM present on admission 4. Distention of colon, to r/o obstruction/malignancy, having BM 5. A.fib, rate controlled 6. Lactic acidosis resolved 7. Elevated INR, sec to sepsis and Coumadin, trending down 8. Acute renal failure improving 9. Leucocytosis, anemia- improving 10. Hypoalbuminemia, nutritional Plan: Neuro: Alert, awake oriented, no signs of encephalopathy Resp: Saturating well on RA CVS: Septic shock required Levophed, has been off since yesterday afternoon. PICC line placed 05/08/17, A.fib on Digoxin, rate controlled. Coumadin on hold sec to elevated INR, trending down, dose Coumadin as per INR ID: Septic shock sec to scrotal cellulitis, seen by Urology, no gangrene, on broad spectrum abx day#3, lactate, sacral decub, wound care following Renal: Acute renal failure sec to sepsis, c/w IV hydration, monitoring renal status and UO closely, will monitor renal function and replete electrolytes Endo: Glucose well controlled, will start tapering stress dose steroids Haem: Anemia of chronic disease, leucocytosis sec to sepsis. GI: Clear liquid diet advanced to regular diet. Distention of colon and suggestion of possible obstruction at level of rectum- sec to stool versus malignancy. No signs of bowel obstruction, having regular BM. Will need f/u CT abd. Musculoskletal/Integumentary: Wound care for sacral decub, frequent turning and positioning , OOB to chair Psycho/social: Pt in good spirits IV access: PICC line placed for pressors and IV infusion 05/08/17 Briggs catheter palcement to prevent worsening of decub, pt has chronic indwelling Briggs urinary. Pt with sloughing of skin near penis and scrotum. Pt was seen by Dr Janett Supportive and preventive care as ordered DVT Px: Pt on Coumadin with elevated INR , Had IVC filter placed Stable to be transferred to regular medical floor Will d/w Dr Prasad
[2017-05-09] MEDS: Piperacillin/Tazobac ADVAN(*) 3.375 GM in NS 0.9% 100 ML* 100 ML IVPB SCH ×3 (08:11→23:49)
[2017-05-09] MEDS: Vancomycin Random Level* NOTE FOLLOW UP SCH (08:11)
[2017-05-09] MEDS: Magnesium Oxide TAB* 400 MG PO SCH ×2 (08:12→20:37)
[2017-05-09] MEDS: Ferrous Sulfate TAB* 325 MG PO SCH (08:12)
[2017-05-09] MEDS: Omeprazole CAP* 20 MG PO SCH (08:12)
[2017-05-09 08:55] LABS: Hematocrit 28 % (42-52); Hemoglobin 8.8 g/dl (14.0-18.0); Mean Corpuscular HGB Conc 32 g/dl (31-36); Mean Corpuscular Hemoglobin 26 pg (27-31); Mean Corpuscular Volume 81 fL (80-94); Mean Platelet Volume 7 um3 (7.4-10.4); Red Blood Count 3.46 10^6/ul (4.0-5.4); Red Cell Distribution Width 18 % (10.5-15); White Blood Count 17.4 10^3/ul (3.5-10.8)
[2017-05-09] MEDS ORDERED: Vancomycin 1500 MG IV - x ONCE IVPB ONE ×2 (09:00)
[2017-05-09 09:05] LABS: Calcium 7.7 mg/dL (8.6-10.3); EGFR African American 34.6 (>60); EGFR Non-African American 26.9 (>60); Magnesium 1.8 mg/dL (1.9-2.7); Phosphorus 4.4 mg/dL (2.5-5.0)
[2017-05-09] MEDS ORDERED: Magnesium Sulfate 2 GM IV* 2 GM/50 ML BAG IVPB ONE (11:49)
[2017-05-09] MEDS ORDERED: Potassium Phosphate IV* 30 MMOLE in NS 0.9% 250 ML* 250 ML IVPB ONE (11:50)
[2017-05-09 13:27] LABS: Urine Random Potassium 36.9 mmol/L
[2017-05-09 15:50] LABS: BUN/Creatinine Ratio 20.2 (8-20); EGFR African American 32.9 (>60); EGFR Non-African American 25.6 (>60)
[2017-05-09] MEDS: Digoxin TAB* 0.125 MG PO SCH (20:37)
[2017-05-10] MEDS ORDERED: Norepinephrine VIAL* 4 MG in NS 0.9% 250 ML* 246 ML IVPB SCH (05:00)
[2017-05-10] MEDS: Hydrocortisone INJ* 100 MG VIAL IV SCH ×3 (05:31→21:22)
[2017-05-10] MEDS: NS 0.9% 1000 ML* 1,000 ML IV SCH (05:48)
[2017-05-10] MEDS ORDERED: Vancomycin Random Level* NOTE FOLLOW UP ONE (06:00)
[2017-05-10 06:59] LABS: Comments Flag Yes; Hematocrit 28 % (42-52); Mean Corpuscular HGB Conc 33 g/dl (31-36); Mean Corpuscular Hemoglobin 26 pg (27-31); Mean Corpuscular Volume 79 fL (80-94); Mean Platelet Volume 7 um3 (7.4-10.4); Red Blood Count 3.49 10^6/ul (4.0-5.4); Red Cell Distribution Width 18 % (10.5-15); White Blood Count 21.6 10^3/ul (3.5-10.8)
[2017-05-10 07:12] LABS: BUN/Creatinine Ratio 20.8 (8-20); EGFR African American 37.3 (>60)
[2017-05-10 07:14] LABS: Potassium 2.7 mmol/L (3.5-5.0)
[2017-05-10] MEDS ORDERED: Magnesium Sulf 4 GM/100 ML IV* 4,000 MG/100 ML BAG IVPB ONE (07:38)
[2017-05-10] MEDS ORDERED: KCL 20 MEQ/100 ML IVPREMIX* 20 MEQ/100 ML BAG IV SCH (08:00)
[2017-05-10] MEDS: Piperacillin/Tazobac ADVAN(*) 3.375 GM in NS 0.9% 100 ML* 100 ML IVPB SCH ×2 (08:38→16:29)
[2017-05-10] MEDS: KCL 10 MEQ/50 ML IVPREMIX* 20 MEQ/100 ML BAG IV SCH ×2 (08:47→10:57)
[2017-05-10] MEDS: Omeprazole CAP* 20 MG PO SCH (08:53)
[2017-05-10] MEDS: Ferrous Sulfate TAB* 325 MG PO SCH (08:53)
[2017-05-10] MEDS: Magnesium Oxide TAB* 400 MG PO SCH ×2 (08:53→21:23)
[2017-05-10] MEDS ORDERED: Vancomycin(*) 1,000 MG in NS 0.9% 250 ML* 250 ML IVPB SCH (10:00)
[2017-05-10] MEDS: KCL 10 MEQ/50 ML IVPREMIX* 10 MEQ/50 ML BAG IV SCH ×4 (10:58→16:29)
[2017-05-10] MEDS: Vancomycin(*) 1,000 MG in NS 0.9% 250 ML* 250 ML IVPB SCH (11:33)
[2017-05-10] MEDS: Vancomycin Random Level* NOTE FOLLOW UP SCH (13:06)
--- NOTE | 2017-05-10 13:48 | PN ---
Subjective Date of Service: 05/10/17 Interval History: Interviewed and examined patient at bedside; Discussed case with Dr. Del Toro ; Reviewed previous notes and radiology results; Patient feeling much better. Off Pressors; good spirits. Family requested ID consult and htis was in turn requested of Dr. Lawrence for Thursday... Briggs is changed --> no surgical indication at this point (see urology notes). Continuing antibiotics. . patient drinking well --> and perhaps a bit fluid overloaded, so fluids stopped temporarily. reassess labs in AM Family History: Unchanged from Admission Social History: Unchanged from Admission Past Medical History: Unchanged from Admission Objective Active Medications: . Acetaminophen (Tylenol Tab*) 650 mg PO Q4H PRN PRN Reason: FEVER/PAIN Cyanocobalamin (Vitamin B12 Inj *) 1,000 mcg IM MONTHLY [facility] Digoxin (Lanoxin Tab*) 0.125 mg PO BEDTIME [facility] Last Admin: 05/09/17 20:37 Dose: 0.125 mg Ferrous Sulfate (Ferrous Sulfate Tab*) 325 mg PO DAILY [facility] Last Admin: 05/10/17 08:53 Dose: 325 mg Heparin Sodium (Porcine) (Heparin Flush Picc/Ml/Cvc(*)) 1 - 3 ml FLUSH 0600, 1800 [facility] PRN Reason: Protocol Last Admin: 05/10/17 05:29 Dose: 1 ml Hydrocortisone Sodium Succinate (Solu-Cortef*) 25 mg IV Q8HR [facility] Stop: 05/11/17 23:59 Piperacillin Sod/Tazobactam (Sod 3.375 gm/ Sodium Chloride) 100 mls @ 25 mls/ hr IVPB Q8H [facility] Last Admin: 05/10/17 08:38 Dose: 25 mls/hr Norepinephrine Bitartrate 4 mg (/ Sodium Chloride) 250 mls @ 18.75 mls/hr IVPB .PER PARAMETERS [facility] PRN Reason: 5 MCG/MIN Potassium Chloride (Potassium Chloride 10 Meq/50 Ml Ivpremix*) 10 meq in 50 mls @ 50 mls/hr IV Q1H [facility] Stop: 05/10/17 14:59 Last Admin: 05/10/17 10:58 Dose: 50 mls/hr Vancomycin HCl 1,000 mg/ (Sodium Chloride) 250 mls @ 166.667 mls/hr IVPB 1100 [facility] Last Admin: 05/10/17 11:33 Dose: 166.667 mls/hr Magnesium Oxide (Magox 400 Tab*) 800 mg PO BID [facility] Last Admin: 05/10/17 08:53 Dose: 800 mg Morphine Sulfate (Morphine Inj (Syringe)*) 1 mg IV Q4H PRN PRN Reason: PAIN Omeprazole (Prilosec Cap*) 20 mg PO DAILY [facility] Last Admin: 05/10/17 08:53 Dose: 20 mg Oxycodone HCl (Roxycodone Tab*) 5 mg PO Q4H PRN PRN Reason: PAIN Pharmacy Consult (Vancomycin Per Pharmacy*) 1 note FOLLOW UP . PRN PRN Reason: PER PROTOCOL Pharmacy Profile Note (Vancomycin Trough Check) 1 note FOLLOW UP 1000 ONE Stop: 05/12/17 10:01 . Vital Signs - 8 hr 05/10/17 05/10/17 05/10/17 06:00 06:30 07:00 Temperature Pulse Rate 87 84 85 Respiratory 15 17 12 Rate Blood Pressure 108/68 102/74 104/64 (mmHg) O2 Sat by Pulse 99 98 94 Oximetry 05/10/17 05/10/17 05/10/17 07:30 07:57 08:00 Temperature 97.7 F Pulse Rate 87 85 83 Respiratory 14 23 16 Rate Blood Pressure 88/58 114/73 115/68 (mmHg) O2 Sat by Pulse 96 98 99 Oximetry Oxygen Devices in Use Now: None Appearance: NAD - good spirits Eyes: No Scleral Icterus Ears/Nose/Mouth/Throat: Clear Oropharnyx Neck: Trachea Midline Respiratory: Symmetrical Chest Expansion and Respiratory Effort Cardiovascular: NL Sounds; No Murmurs; No JVD Abdominal: NL Sounds; No Tenderness; No Distention Lymphatic: No Cervical Adenopathy Extremities: No Edema Skin: - - large sacral decubitis ulcer and scrotal cellulitis noted. Neurological: Alert and Oriented x 3 Lines/Tubes/Other Access: Clean, Dry and Intact Peripheral IV Nutrition: Taking PO's Result Diagrams: 05/10/17 06:45 05/10/17 06:45 Microbiology and Other Data: Microbiology 05/07/17 21:12 Nasal Screen MRSA (PCR)(KASSY) - Final Nasal Mrsa Negative Assess/Plan/Problems-Billing . Assessment: 66 yo half-way resident with sacral decub and sacral osteomyolitis and scrotal wall edema and cellulitis patient had Septic shock secondary to scrotal cellulitis - required vasopressors for profound blood pressure that was fluid unresponsive. Has Sacral decubitus ulcer -- stage-4 -- with chronic osteomyelitis present on admission Atrial fibrillation - was rapid -- now rate controlled Severe Lactic acidosis -- resolved Elevated INR - resolved (2/2 sepsis/coumadin) Hypoalbuminemia noted secondary to acute illness and poor nutritional status. Hypokalemia -- repleted 05/10. - Patient Problems (1) Septic shock Current Visit: Yes Status: Acute Priority: High Code(s): A41.9 - SEPSIS, UNSPECIFIED ORGANISM; R65.21 - SEVERE SEPSIS WITH SEPTIC SHOCK Comment: - off pressors - continuing broad antibiotics - unknown source organism; but related to scrotal cellulitis and osteo. - end-organ damage improving slowly (kidney, brain, CV) (2) Afib Current Visit: No Status: Chronic Priority: High Code(s): I48.91 - UNSPECIFIED ATRIAL FIBRILLATION Comment: Continue Digoxin and Metoprololand coumadin. INR therapeutic (3) BPH w urinary obs/LUTS Current Visit: No Status: Chronic Priority: High Code(s): N40.1 - BENIGN PROSTATIC HYPERPLASIA WITH LOWER URINARY TRACT SYMP; N13.8 - OTHER OBSTRUCTIVE AND REFLUX UROPATHY Comment: - continue Flomax and Briggs Catheter (4) Osteomyelitis Current Visit: No Status: Acute Code(s): M86.9 - OSTEOMYELITIS, UNSPECIFIED Comment: - of sacrum currently. - present on admission to hospital. (5) Sacral decubitus ulcer Current Visit: No Status: Acute Priority: High Comment: - Wound care consult - ID consult - Consider surgical consult
[2017-05-10] MEDS: Digoxin TAB* 0.125 MG PO SCH (21:23)
[2017-05-11] MEDS: Piperacillin/Tazobac ADVAN(*) 3.375 GM in NS 0.9% 100 ML* 100 ML IVPB SCH ×3 (00:59→16:57)
[2017-05-11] MEDS: Hydrocortisone INJ* 100 MG VIAL IV SCH ×2 (06:27→13:37)
[2017-05-11 07:07] LABS: Hematocrit 34 % (42-52); Hemoglobin 10.8 g/dl (14.0-18.0); Mean Corpuscular HGB Conc 32 g/dl (31-36); Mean Corpuscular Hemoglobin 26 pg (27-31); Mean Corpuscular Volume 80 fL (80-94); Mean Platelet Volume 7 um3 (7.4-10.4); Red Blood Count 4.17 10^6/ul (4.0-5.4); Red Cell Distribution Width 18 % (10.5-15); White Blood Count 20.6 10^3/ul (3.5-10.8)
[2017-05-11 07:09] LABS: Add Diff/Slide Review? Slide Review Added; Comments Flag Yes
[2017-05-11 07:19] LABS: Albumin 2.5 g/dL (3.2-5.2); BUN/Creatinine Ratio 20.3 (8-20); Calcium 8.8 mg/dL (8.6-10.3); EGFR African American 42.5 (>60); Globulin 3.4 g/dL (2-4); Magnesium 2.8 mg/dL (1.9-2.7); Phosphorus 3.2 mg/dL (2.5-5.0); Potassium 2.8 mmol/L (3.5-5.0); Total Bilirubin 0.4 mg/dL (0.2-1.0); Total Protein 5.9 g/dL (6.4-8.9)
[2017-05-11] MEDS ORDERED: Potassium Chlor TAB* 20 MEQ TAB.ER PO ONE ×2 (07:20→18:00)
[2017-05-11] MEDS: Magnesium Oxide TAB* 400 MG PO SCH ×2 (08:23→21:23)
[2017-05-11] MEDS: Omeprazole CAP* 20 MG PO SCH (08:24)
[2017-05-11] MEDS: Ferrous Sulfate TAB* 325 MG PO SCH (08:24)
[2017-05-11] MEDS: KCL 20 MEQ/100 ML IVPREMIX* 20 MEQ/100 ML BAG IV SCH ×2 (08:25→10:51)
[2017-05-11] MEDS: Vancomycin(*) 1,000 MG in NS 0.9% 250 ML* 250 ML IVPB SCH (11:14)
[2017-05-11] MEDS: KCL 10 MEQ/50 ML IVPREMIX* 10 MEQ/50 ML BAG IV SCH ×3 (11:14→14:38)
--- NOTE | 2017-05-11 13:49 | CONS ---
CONSULTATION REPORT: DATE OF CONSULT: 05/11/17 REQUESTING PHYSICIAN: Dr. Payne. CONSULTING SERVICE: Infectious Disease. REASON FOR CONSULT: Orchitis. IMPRESSION: 1. Septic shock was present at admission with encephalopathy, which are all resolved. 2. Orchitis and diffuse scrotal cellulitis. The differential diagnosis initially included Talisha gangrene; however, he is improving with antibiotics alone. A urine culture on the grew Proteus mirabilis greater than 100,000 colonies in the setting of a chronic Briggs catheter, which was changed out. 3. History of epidural abscess and lower extremity partial paralysis. 4. Left ankle history of open reduction and internal fixation and methicillin- susceptible Staphylococcus aureus osteomyelitis at the time of his epidural abscess, status post incision and debridement. 5. Cirrhosis. 6. Atrial fibrillation. 7. Pulmonary embolism with a Highspire filter. 8. Benign prostatic hypertrophy with urinary retention and chronic Briggs. RECOMMENDATIONS: Continue Zosyn. We will stop his vancomycin and follow his scrotal and testicular symptoms, which are gradually improving. 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 He has a chronic Briggs catheter. He had the sudden onset on Thursday of scrotal swelling, severe pain, fever and shock , brought to the emergency room. His white blood cell count was 27,000. CT scan was done of the abdomen and pelvis, which showed dilatation of the colon extending to the rectum and cholelithiasis. To my eye, the scrotum also reflects small abscess. An ultrasound of the testicles was done on the as well, it showed scrotal wall edema. The right testicle and epididymis were not identified. He has been on IV antibiotics and over the weekend, his pain and swelling of the scrotum have gradually improved down to 1/10 from 10/10. He has had no fevers, chills or rash. PAST MEDICAL HISTORY: 1. Benign prostatic hypertrophy with outlet obstruction and chronic Briggs catheter. 2. Chronic kidney disease. 3. Cirrhosis. 4. Atrial fibrillation. 5. Pulmonary embolism with a Highspire Filter. 6. Hypertension. 7. Epidural abscess due to Staph aureus, status post decompressive laminectomy , April 2016. 8. 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 9. Sacral decubitus ulcer, treated for chronic osteomyelitis in the past. MEDICATIONS: 1. Tylenol. 2. Digoxin. 3. Ferrous sulfate. 4. Magnesium. 5. Norepinephrine infusion, which has been discontinued. 6. Omeprazole. 7. Vancomycin. 8. Zosyn 3.375 g IV every 8 hours. ALLERGIES: No known drug allergies. FAMILY HISTORY: No recurrent infections. Brother had coronary artery disease. SOCIAL HISTORY: He lives at [facility]. No travel. REVIEW OF SYSTEMS: A 14-point review of systems was negative except as noted above. PHYSICAL EXAM: Vital Signs: Temperature is 36.6, heart rate 87, respiratory rate 18, blood pressure 143/93, O2 sat 100% on room air. In general, he is awake, not in distress. Neurologic: He is oriented x3, follows all commands. Sensation is intact to light touch in lower extremities bilaterally. He can move both legs. HEENT: There is no conjunctival hemorrhage. Oropharynx without lesions. Neck: Supple. Lymph Nodes: There is no inguinal, axillary or epitrochlear lymphadenopathy. Heart is regular rate and rhythm without murmurs, rubs, or gallops. Lungs are clear to auscultation bilaterally. Abdomen: Soft, mildly distended. There are decreased bowel sounds. There is no tenderness to palpation. Skin: There is no rash or splinter hemorrhages. Musculoskeletal: There is no spine tenderness to palpation. Genitourinary: There is mild scrotal edema without crepitus or fluctuance. Left testicle tender to palpation and firm. I did not palpate the right testicle. There is no perineal tenderness or crepitus. DIAGNOSTIC STUDIES/LAB DATA: White blood cell count 20, hemoglobin 10, platelets 334,000. Creatinine 2. Potassium 2.8. Please see impressions and recommendations outlined above, which I have discussed with Dr. Payne. Thank you for asking me to see Mr. Molina in consultation. [id number]/[facility] #: [id number] ZURI
[2017-05-11] MEDS: Digoxin TAB* 0.125 MG PO SCH (21:23)
[2017-05-12] MEDS: Piperacillin/Tazobac ADVAN(*) 3.375 GM in NS 0.9% 100 ML* 100 ML IVPB SCH ×4 (00:33→23:04)
[2017-05-12 05:39] LABS: Hematocrit 29 % (42-52); Hemoglobin 9.1 g/dl (14.0-18.0); Mean Corpuscular HGB Conc 32 g/dl (31-36); Mean Corpuscular Hemoglobin 26 pg (27-31); Mean Corpuscular Volume 81 fL (80-94); Mean Platelet Volume 7 um3 (7.4-10.4); Red Blood Count 3.55 10^6/ul (4.0-5.4); Red Cell Distribution Width 18 % (10.5-15); White Blood Count 15.9 10^3/ul (3.5-10.8)
[2017-05-12 05:55] LABS: Add Diff/Slide Review? Slide Review Added; Comments Flag Yes
[2017-05-12 05:56] LABS: Albumin 2.1 g/dL (3.2-5.2); BUN/Creatinine Ratio 20.3 (8-20); Calcium 8.3 mg/dL (8.6-10.3); EGFR African American 49.4 (>60); EGFR Non-African American 38.4 (>60); Globulin 2.7 g/dL (2-4); Magnesium 2.3 mg/dL (1.9-2.7); Phosphorus 2.4 mg/dL (2.5-5.0); Potassium 3.1 mmol/L (3.5-5.0); Total Bilirubin 0.3 mg/dL (0.2-1.0); Total Protein 4.8 g/dL (6.4-8.9)
[2017-05-12] MEDS: Magnesium Oxide TAB* 400 MG PO SCH ×2 (07:29→19:38)
[2017-05-12] MEDS: Omeprazole CAP* 20 MG PO SCH (07:29)
[2017-05-12] MEDS: Ferrous Sulfate TAB* 325 MG PO SCH (07:29)
[2017-05-12] MEDS ORDERED: Potassium Chlor TAB* 20 MEQ TAB.ER PO ONE (07:59)
[2017-05-12] MEDS ORDERED: Vancomycin Trough Check NOTE FOLLOW UP ONE (10:00)
[2017-05-12] MEDS: KCL 10 MEQ/50 ML IVPREMIX* 10 MEQ/50 ML BAG IV SCH ×6 (11:35→16:59)
[2017-05-12] MEDS: Digoxin TAB* 0.125 MG PO SCH (19:38)
[2017-05-13 05:34] LABS: EGFR African American 58.5 (>60); EGFR Non-African American 45.5 (>60)
[2017-05-13 05:39] LABS: Potassium 2.7 mmol/L (3.5-5.0)
[2017-05-13] MEDS: Ferrous Sulfate TAB* 325 MG PO SCH (08:34)
[2017-05-13] MEDS: Omeprazole CAP* 20 MG PO SCH (08:34)
[2017-05-13] MEDS: Magnesium Oxide TAB* 400 MG PO SCH ×2 (08:34→21:55)
[2017-05-13] MEDS: Piperacillin/Tazobac ADVAN(*) 3.375 GM in NS 0.9% 100 ML* 100 ML IVPB SCH ×2 (08:34→16:32)
[2017-05-13] MEDS ORDERED: Potassium Chlor TAB* 20 MEQ TAB.ER PO ONE (09:14)
--- NOTE | 2017-05-13 10:50 | PN ---
Progress Note - Progress Note Date of Service: 05/13/17 SOAP: Subjective: CC: scrotal cellulitis HPI: 66 yeaer old man with purulent drainage from gilmore catheter and diffuse scrotal edema. Pain and swelling much improved. No fever, rash, or diarrhea. Objective: Vital Signs Temp 36.8 C 05/13/17 07:24 Pulse 77 05/13/17 07:24 Resp 16 05/13/17 07:24 BP 127/76 05/13/17 07:24 Pulse Ox 98 05/13/17 08:00 Intake & Output 05/12/17 05/13/17 05/13/17 18:59 06:59 18:59 Intake Total 1700 340 Output Total 380 2900 Balance 1320 -2560 Intake: IV Fluids 400 ABX - PIPERACILLIN 100 Potassium Chl 10mEq 300 IVPB 400 220 ABX - PIPERACILLIN 220 NS (0.9%) 400 Oral 900 120 Output: Gilmore 380 2900 Other: # Bowel Movements 1 1 Estimated Stool Amount Medium Large # Voids 1 Gen:awake, no distress HEENT:PERRL, MMM Heart:RRR no murmur Lungs:CTA BL Abd:+BS NTND soft Skin: no rash : gilmore catheter, diffuse scrotal edema and mild induration Laboratory Results - last 24 hr 05/13/17 05:14 Sodium 141 Potassium 2.7 L* Chloride 118 H Carbon Dioxide 20 L Anion Gap 3 BUN 26 H Creatinine 1.53 H Est GFR ( Amer) 58.5 Est GFR (Non-Af Amer) 45.5 BUN/Creatinine Ratio 17.0 Glucose 76 Calcium 8.0 L Assessment: 1. scrotal cellulitis and orchitis 2. urinary retention with chronic gilmore and catheter associated UTI 3. left ankle ORIF complicated by MSSA infection and I&D Plan: 1. change zosyn to augmentin 500 mg po TID for 10 days; restart assisted doxycycline after this is finished Discussed with Dr Higginbotham
--- NOTE | 2017-05-13 11:24 | PN ---
Subjective Date of Service: 05/11/17 Interval History: . no new complaints accepting IV Abx without difficulty Family History: Unchanged from Admission Social History: Unchanged from Admission Past Medical History: Unchanged from Admission Objective Active Medications: Acetaminophen (Tylenol Tab*) 650 mg PO Q4H PRN PRN Reason: FEVER/PAIN Cyanocobalamin (Vitamin B12 Inj *) 1,000 mcg IM MONTHLY [facility] Digoxin (Lanoxin Tab*) 0.125 mg PO BEDTIME [facility] Last Admin: 05/12/17 19:38 Dose: 0.125 mg Ferrous Sulfate (Ferrous Sulfate Tab*) 325 mg PO DAILY [facility] Last Admin: 05/13/17 08:34 Dose: 325 mg Heparin Sodium (Porcine) (Heparin Flush Picc/Ml/Cvc(*)) 1 - 3 ml FLUSH 0600, 1800 [facility] PRN Reason: Protocol Last Admin: 05/13/17 05:13 Dose: 2 ml Piperacillin Sod/Tazobactam (Sod 3.375 gm/ Sodium Chloride) 100 mls @ 25 mls/ hr IVPB Q8H [facility] Last Admin: 05/13/17 08:34 Dose: 25 mls/hr Norepinephrine Bitartrate 4 mg (/ Sodium Chloride) 250 mls @ 18.75 mls/hr IVPB .PER PARAMETERS [facility] PRN Reason: 5 MCG/MIN Potassium Chloride (Potassium Chloride 20 Meq/100 Ml Ivpremix*) 20 meq in 100 mls @ 50 mls/hr IV Q2H [facility] Stop: 05/13/17 13:59 Loperamide HCl (Imodium Cap*) 2 mg PO .SEE DIRECTIONS PRN PRN Reason: DIARRHEA Magnesium Oxide (Magox 400 Tab*) 800 mg PO BID [facility] Last Admin: 05/13/17 08:34 Dose: 800 mg Morphine Sulfate (Morphine Inj (Syringe)*) 1 mg IV Q4H PRN PRN Reason: PAIN Omeprazole (Prilosec Cap*) 20 mg PO DAILY [facility] Last Admin: 05/13/17 08:34 Dose: 20 mg Oxycodone HCl (Roxycodone Tab*) 5 mg PO Q4H PRN PRN Reason: PAIN Vital Signs - 8 hr 05/13/17 05/13/17 07:24 08:00 Temperature 98.2 F Pulse Rate 77 Respiratory 16 16 Rate Blood Pressure 127/76 (mmHg) O2 Sat by Pulse 98 98 Oximetry Oxygen Devices in Use Now: None Appearance: NAD Eyes: No Scleral Icterus Ears/Nose/Mouth/Throat: Clear Oropharnyx Neck: NL Appearance and Movements; NL JVP Respiratory: Symmetrical Chest Expansion and Respiratory Effort Cardiovascular: NL Sounds; No Murmurs; No JVD Abdominal: NL Sounds; No Tenderness; No Distention Lymphatic: No Cervical Adenopathy Skin: - - + scrotal celluliis noted Neurological: Alert and Oriented x 3 Lines/Tubes/Other Access: Clean, Dry and Intact PICC Line Nutrition: Taking PO's Result Diagrams: 05/12/17 05:15 05/13/17 05:14 Microbiology and Other Data: Microbiology 05/07/17 21:12 Nasal Screen MRSA (PCR)(KASSY) - Final Nasal Mrsa Negative Assess/Plan/Problems-Billing . Assessment: 66 yo intermediate resident with sacral decub and sacral osteomyolitis and scrotal wall edema and cellulitis patient had Septic shock secondary to scrotal cellulitis - required vasopressors for profound blood pressure that was fluid unresponsive. Has Sacral decubitus ulcer -- stage-4 -- with chronic osteomyelitis present on admission Atrial fibrillation - was rapid -- now rate controlled - occasional pauses noted on tele -- not dropped beats Severe Lactic acidosis -- resolved Elevated INR - resolved (2/2 sepsis/coumadin) Hypoalbuminemia noted secondary to acute illness and poor nutritional status. Hypokalemia -- repleted 05/10. - Patient Problems (1) Septic shock Current Visit: Yes Status: Acute Priority: High Code(s): A41.9 - SEPSIS, UNSPECIFIED ORGANISM; R65.21 - SEVERE SEPSIS WITH SEPTIC SHOCK Comment: - off pressors - continuing broad antibiotics - unknown source organism; but related to scrotal cellulitis and osteo. - end-organ damage improving slowly (kidney, brain, CV) (2) Afib Current Visit: No Status: Chronic Priority: High Code(s): I48.91 - UNSPECIFIED ATRIAL FIBRILLATION Comment: Continue Digoxin and Metoprololand coumadin. INR therapeutic (3) BPH w urinary obs/LUTS Current Visit: No Status: Chronic Priority: High Code(s): N40.1 - BENIGN PROSTATIC HYPERPLASIA WITH LOWER URINARY TRACT SYMP; N13.8 - OTHER OBSTRUCTIVE AND REFLUX UROPATHY Comment: - continue Flomax and Briggs Catheter (4) Osteomyelitis Current Visit: No Status: Acute Code(s): M86.9 - OSTEOMYELITIS, UNSPECIFIED Comment: - of sacrum currently. - present on admission to hospital. (5) Sacral decubitus ulcer Current Visit: No Status: Acute Priority: High Comment: - Wound care consult - ID consult - Consider surgical consult
--- NOTE | 2017-05-13 11:26 | PN ---
Subjective Date of Service: 05/12/17 Interval History: . denies new s/sx tolerating IV Abx without difficulty awaiting transition to oral abx on ID recommendation before dc Family History: Unchanged from Admission Social History: Unchanged from Admission Past Medical History: Unchanged from Admission Objective Active Medications: . Acetaminophen (Tylenol Tab*) 650 mg PO Q4H PRN PRN Reason: FEVER/PAIN Cyanocobalamin (Vitamin B12 Inj *) 1,000 mcg IM MONTHLY [facility] Digoxin (Lanoxin Tab*) 0.125 mg PO BEDTIME [facility] Last Admin: 05/12/17 19:38 Dose: 0.125 mg Ferrous Sulfate (Ferrous Sulfate Tab*) 325 mg PO DAILY [facility] Last Admin: 05/13/17 08:34 Dose: 325 mg Heparin Sodium (Porcine) (Heparin Flush Picc/Ml/Cvc(*)) 1 - 3 ml FLUSH 0600, 1800 [facility] PRN Reason: Protocol Last Admin: 05/13/17 05:13 Dose: 2 ml Piperacillin Sod/Tazobactam (Sod 3.375 gm/ Sodium Chloride) 100 mls @ 25 mls/ hr IVPB Q8H [facility] Last Admin: 05/13/17 08:34 Dose: 25 mls/hr Norepinephrine Bitartrate 4 mg (/ Sodium Chloride) 250 mls @ 18.75 mls/hr IVPB .PER PARAMETERS [facility] PRN Reason: 5 MCG/MIN Potassium Chloride (Potassium Chloride 20 Meq/100 Ml Ivpremix*) 20 meq in 100 mls @ 50 mls/hr IV Q2H [facility] Stop: 05/13/17 13:59 Loperamide HCl (Imodium Cap*) 2 mg PO .SEE DIRECTIONS PRN PRN Reason: DIARRHEA Magnesium Oxide (Magox 400 Tab*) 800 mg PO BID [facility] Last Admin: 05/13/17 08:34 Dose: 800 mg Morphine Sulfate (Morphine Inj (Syringe)*) 1 mg IV Q4H PRN PRN Reason: PAIN Omeprazole (Prilosec Cap*) 20 mg PO DAILY [facility] Last Admin: 05/13/17 08:34 Dose: 20 mg Oxycodone HCl (Roxycodone Tab*) 5 mg PO Q4H PRN PRN Reason: PAIN Vital Signs - 8 hr 05/13/17 05/13/17 07:24 08:00 Temperature 98.2 F Pulse Rate 77 Respiratory 16 16 Rate Blood Pressure 127/76 (mmHg) O2 Sat by Pulse 98 98 Oximetry Oxygen Devices in Use Now: None Appearance: NAD Eyes: No Scleral Icterus Ears/Nose/Mouth/Throat: Clear Oropharnyx Neck: Trachea Midline Respiratory: Symmetrical Chest Expansion and Respiratory Effort, Clear to Auscultation Cardiovascular: NL Sounds; No Murmurs; No JVD Abdominal: NL Sounds; No Tenderness; No Distention Lymphatic: No Cervical Adenopathy Extremities: No Clubbing, Cyanosis, - Skin: - - + scrotal cellulitis - improved Neurological: NL Sensation Lines/Tubes/Other Access: Clean, Dry and Intact PICC Line Nutrition: Taking PO's Result Diagrams: 05/12/17 05:15 05/13/17 05:14 Microbiology and Other Data: Microbiology 05/07/17 21:12 Nasal Screen MRSA (PCR)(KASSY) - Final Nasal Mrsa Negative Assess/Plan/Problems-Billing . Assessment: 66 yo long term resident with sacral decub and sacral osteomyolitis and scrotal wall edema and cellulitis patient had Septic shock secondary to scrotal cellulitis - required vasopressors for profound blood pressure that was fluid unresponsive. Has Sacral decubitus ulcer -- stage-4 -- with chronic osteomyelitis present on admission Atrial fibrillation - was rapid -- now rate controlled - occasional pauses noted on tele -- not dropped beats Severe Lactic acidosis -- resolved Elevated INR - resolved (2/2 sepsis/coumadin) Hypoalbuminemia noted secondary to acute illness and poor nutritional status. Hypokalemia -- repleted 05/10. - Patient Problems (1) Septic shock Current Visit: Yes Status: Acute Priority: High Code(s): A41.9 - SEPSIS, UNSPECIFIED ORGANISM; R65.21 - SEVERE SEPSIS WITH SEPTIC SHOCK Comment: - off pressors - continuing broad antibiotics - unknown source organism; but related to scrotal cellulitis and osteo. - end-organ damage improving slowly (kidney, brain, CV) (2) Afib Current Visit: No Status: Chronic Priority: High Code(s): I48.91 - UNSPECIFIED ATRIAL FIBRILLATION Comment: Continue Digoxin and Metoprololand coumadin. INR therapeutic (3) BPH w urinary obs/LUTS Current Visit: No Status: Chronic Priority: High Code(s): N40.1 - BENIGN PROSTATIC HYPERPLASIA WITH LOWER URINARY TRACT SYMP; N13.8 - OTHER OBSTRUCTIVE AND REFLUX UROPATHY Comment: - continue Flomax and Briggs Catheter (4) Osteomyelitis Current Visit: No Status: Acute Code(s): M86.9 - OSTEOMYELITIS, UNSPECIFIED Comment: - of sacrum currently. - present on admission to hospital. (5) Sacral decubitus ulcer Current Visit: No Status: Acute Priority: High Comment: - Wound care consult - ID consult - Consider surgical consult
--- NOTE | 2017-05-13 11:29 | PN ---
Subjective Date of Service: 05/13/17 Interval History: Pt is feeling well. He continues to have mild discomfort in his scrotum. He is also having diarrhea. He states he can not control it. Family History: Unchanged from Admission Social History: Unchanged from Admission Past Medical History: Unchanged from Admission Objective Active Medications: Acetaminophen (Tylenol Tab*) 650 mg PO Q4H PRN PRN Reason: FEVER/PAIN Cyanocobalamin (Vitamin B12 Inj *) 1,[address] [facility] Digoxin (Lanoxin Tab*) 0.[address] [facility] Last Admin: 05/12/17 19:38 Dose: 0.125 mg Ferrous Sulfate (Ferrous Sulfate Tab*) [address] [facility] Last Admin: 05/13/17 08:34 Dose: 325 mg Heparin Sodium (Porcine) (Heparin Flush Picc/Ml/Cvc(*)) 1 - 3 ml FLUSH 0600, 1800 [facility] PRN Reason: Protocol Last Admin: 05/13/17 05:13 Dose: 2 ml Piperacillin Sod/Tazobactam (Sod 3.375 gm/ Sodium Chloride) 100 mls @ 25 mls/ hr IVPB Q8H [facility] Last Admin: 05/13/17 08:34 Dose: 25 mls/hr Norepinephrine Bitartrate 4 mg (/ Sodium Chloride) 250 mls @ 18.75 mls/hr IVPB .PER PARAMETERS [facility] PRN Reason: 5 MCG/MIN Potassium Chloride (Potassium Chloride 20 Meq/100 Ml Ivpremix*) 20 meq in 100 mls @ 50 mls/hr IV Q2H [facility] Stop: 05/13/17 13:59 Loperamide HCl (Imodium Cap*) 2 mg PO .SEE DIRECTIONS PRN PRN Reason: DIARRHEA Magnesium Oxide (Magox 400 Tab*) [address] [facility] Last Admin: 05/13/17 08:34 Dose: 800 mg Morphine Sulfate (Morphine Inj (Syringe)*) 1 mg IV Q4H PRN PRN Reason: PAIN Omeprazole (Prilosec Cap*) [address] [facility] Last Admin: 05/13/17 08:34 Dose: 20 mg Oxycodone HCl (Roxycodone Tab*) 5 mg PO Q4H PRN PRN Reason: PAIN Vital Signs - 8 hr 05/13/17 05/13/17 07:24 08:00 Temperature 98.2 F Pulse Rate 77 Respiratory 16 16 Rate Blood Pressure 127/76 (mmHg) O2 Sat by Pulse 98 98 Oximetry Oxygen Devices in Use Now: None Appearance: Middle aged male sitting up in bed, NAD Eyes: No Scleral Icterus Ears/Nose/Mouth/Throat: Mucous Membranes Moist Respiratory: Symmetrical Chest Expansion and Respiratory Effort, Clear to Auscultation - anteriorly Cardiovascular: NL Sounds; No Murmurs; No JVD, RRR, - - 1+ B/L LE edema Abdominal: NL Sounds; No Tenderness; No Distention Extremities: No Clubbing, Cyanosis Skin: - - Erythema and induration of scrotums and pubic region Neurological: Alert and Oriented x 3 Result Diagrams: 05/12/17 05:15 05/13/17 05:14 Microbiology and Other Data: Microbiology 05/07/17 21:12 Nasal Screen MRSA (PCR)(KASSY) - Final Nasal Mrsa Negative Assess/Plan/Problems-Billing Mr Molina is a 66 yo M who has a chronic gilmore catheter for chronic urinary retention who presented to the ER with c/o scrotal swelling and was admitted for septic shock secondary to scrotal cellulitis and orchitis. - Patient Problems (1) Septic shock Current Visit: Yes Status: Acute Priority: High Code(s): A41.9 - SEPSIS, UNSPECIFIED ORGANISM; R65.21 - SEVERE SEPSIS WITH SEPTIC SHOCK SNOMED Code(s) : 81089400 Comment: Present on admission and now resolved after aggressive IVF hydration , pressors and appropriate ABx therapy. (2) Cellulitis of scrotum Current Visit: Yes Status: Acute Code(s): N49.2 - INFLAMMATORY DISORDERS OF SCROTUM SNOMED Code(s): 27307169 Comment: The patient presented to the ER with scrotal cellulitis and likely orchitis. It was felt on admission the patient did not have Talisha's gangrene. He has been on zosyn with good response. Dr. Lawrence feels the patient can be changed to augmentin for another 10 days then back on his usual dose of doxycycline. Likely back to [facility] tomorrow. (3) Acute renal failure Current Visit: Yes Status: Acute Comment: On admission the patient was in ARF with his creatinine >3x his baseline creatinine. The ARF is improving. I suspect based on the slow recovery there was a component of ATN leading to the ARF. (4) Diarrhea Current Visit: Yes Status: Acute Code(s): R19.7 - DIARRHEA, UNSPECIFIED SNOMED Code(s): 61433985 Comment: The patient has been having several loose stools/day. Nursing indicates <10/day. Will start imodium and monitor for improvment in his stools. (5) Urinary retention Current Visit: Yes Status: Acute Code(s): R33.9 - RETENTION OF URINE, UNSPECIFIED SNOMED Code(s): 668729581 Comment: Gilmore catheter was changed this hospitalization. Resume flomax. (6) Afib Current Visit: Yes Status: Chronic Priority: High Code(s): I48.91 - UNSPECIFIED ATRIAL FIBRILLATION SNOMED Code(s): 38653243 Comment: HR is controlled. Continue digoxin and add back metoprolol. He is not on anticoagulation at this time but appears he was on coumadin on admission but it is not on his home medication list. Will get accurate list from CR sent over today. (7) DVT prophylaxis Current Visit: Yes Status: Acute Code(s): [id number] - SNOMED Code(s): 679730619 Comment: INR is now subtherapeutic. Start full dose lovenox until INR is therapeutic. (8) DNR (do not resuscitate) Current Visit: Yes Status: Acute
[2017-05-13] MEDS: Metoprolol Tartrate TAB* 25 MG PO SCH (12:19)
[2017-05-13] MEDS: Enoxaparin(*) 100 MG/ML SYR SUBCUT SCH (12:20)
[2017-05-13] MEDS: KCL 20 MEQ/100 ML IVPREMIX* 20 MEQ/100 ML BAG IV SCH (12:23)
[2017-05-13] MEDS: KCL 10 MEQ/50 ML IVPREMIX* 10 MEQ/50 ML BAG IV SCH ×4 (12:41→16:36)
[2017-05-13] MEDS ORDERED: Heparin VIAL(*) 5000 UNITS/ML VIAL (FIVE THOUSAND) SUBCUT SCH (14:00)
[2017-05-13] MEDS: Warfarin TAB(*) 5 MG PO SCH (16:33)
[2017-05-13] MEDS: Tamsulosin CAP* 0.4 MG PO SCH (21:53)
[2017-05-13] MEDS: Digoxin TAB* 0.125 MG PO SCH (21:54)
[2017-05-13] MEDS: Loperamide CAP* 2 MG PO PRN (21:54)
[2017-05-13] MEDS: Potassium Chlor TAB* 20 MEQ TAB.ER PO SCH (21:54)
[2017-05-14] MEDS: Enoxaparin(*) 100 MG/ML SYR SUBCUT SCH ×3 (00:07→22:17)
[2017-05-14] MEDS: Loperamide CAP* 2 MG PO PRN (05:13)
[2017-05-14 05:40] LABS: Hematocrit 28 % (42-52); Hemoglobin 8.9 g/dl (14.0-18.0); Mean Corpuscular HGB Conc 32 g/dl (31-36); Mean Corpuscular Hemoglobin 26 pg (27-31); Mean Corpuscular Volume 80 fL (80-94); Mean Platelet Volume 7 um3 (7.4-10.4); Red Blood Count 3.46 10^6/ul (4.0-5.4); Red Cell Distribution Width 18 % (10.5-15); White Blood Count 12.7 10^3/ul (3.5-10.8)
[2017-05-14 05:51] LABS: Albumin 1.9 g/dL (3.2-5.2); BUN/Creatinine Ratio 14.3 (8-20); Calcium 7.8 mg/dL (8.6-10.3); EGFR African American 61.3 (>60); EGFR Non-African American 47.6 (>60); Globulin 2.6 g/dL (2-4); Potassium 2.9 mmol/L (3.5-5.0); Total Bilirubin 0.5 mg/dL (0.2-1.0); Total Protein 4.5 g/dL (6.4-8.9)
[2017-05-14] MEDS: Potassium Chlor TAB* 20 MEQ TAB.ER PO SCH ×2 (08:21→22:19)
[2017-05-14] MEDS: Amoxicillin/Clavulanate TAB* 875 MG PO SCH ×2 (08:21→22:18)
[2017-05-14] MEDS: Ferrous Sulfate TAB* 325 MG PO SCH (08:21)
[2017-05-14] MEDS: Metoprolol Tartrate TAB* 25 MG PO SCH (08:22)
[2017-05-14] MEDS: Omeprazole CAP* 20 MG PO SCH (08:22)
[2017-05-14] MEDS: Magnesium Oxide TAB* 400 MG PO SCH ×2 (08:22→22:20)
[2017-05-14] MEDS ORDERED: Potassium Chlor TAB* 10 MEQ TAB.ER PO ONE (11:47)
--- NOTE | 2017-05-14 12:10 | PN ---
Subjective Date of Service: 05/14/17 Interval History: Pt is feeling well. He states the scrotum is a little less tender today. He notes it is still quite swollen and hard. He has no c/o CP or SOB. No further diarrhea. He wants normal food and not mechanical soft. Family History: Unchanged from Admission Social History: Unchanged from Admission Past Medical History: Unchanged from Admission Objective Active Medications: Acetaminophen (Tylenol Tab*) 650 mg PO Q4H PRN PRN Reason: FEVER/PAIN Amoxicillin/Clavulanate Potassium (Augmentin Tab*) 875 mg PO BID [facility] Last Admin: 05/14/17 08:21 Dose: 875 mg Cyanocobalamin (Vitamin B12 Inj *) 1,000 mcg IM MONTHLY [facility] Digoxin (Lanoxin Tab*) 0.125 mg PO BEDTIME [facility] Last Admin: 05/13/17 21:54 Dose: 0.125 mg Enoxaparin Sodium (Lovenox(*)) 100 mg SUBCUT BID [facility] Last Admin: 05/14/17 08:23 Dose: 100 mg Ferrous Sulfate (Ferrous Sulfate Tab*) 325 mg PO DAILY [facility] Last Admin: 05/14/17 08:21 Dose: 325 mg Heparin Sodium (Porcine) (Heparin Flush Picc/Ml/Cvc(*)) 1 - 3 ml FLUSH 0600, 1800 [facility] PRN Reason: Protocol Last Admin: 05/14/17 05:11 Dose: 2 ml Norepinephrine Bitartrate 4 mg (/ Sodium Chloride) 250 mls @ 18.75 mls/hr IVPB .PER PARAMETERS [facility] PRN Reason: 5 MCG/MIN Potassium Chloride (Potassium Chloride 10 Meq/50 Ml Ivpremix*) 10 meq in 50 mls @ 50 mls/hr IV Q2H [facility] Stop: 05/14/17 14:59 Loperamide HCl (Imodium Cap*) 2 mg PO .SEE DIRECTIONS PRN PRN Reason: DIARRHEA Last Admin: 05/14/17 05:13 Dose: 2 mg Magnesium Oxide (Magox 400 Tab*) 800 mg PO BID [facility] Last Admin: 05/14/17 08:22 Dose: 800 mg Metoprolol Tartrate (Lopressor Tab*) 25 mg PO DAILY [facility] Last Admin: 05/14/17 08:22 Dose: 25 mg Morphine Sulfate (Morphine Inj (Syringe)*) 1 mg IV Q4H PRN PRN Reason: PAIN Omeprazole (Prilosec Cap*) 20 mg PO DAILY [facility] Last Admin: 05/14/17 08:22 Dose: 20 mg Oxycodone HCl (Roxycodone Tab*) 5 mg PO Q4H PRN PRN Reason: PAIN Potassium Chloride (Klor Con Er Tab*) 20 meq PO BID [facility] Last Admin: 05/14/17 08:21 Dose: 20 meq Tamsulosin HCl (Flomax Cap*) 0.4 mg PO BEDTIME [facility] Last Admin: 05/13/17 21:53 Dose: 0.4 mg Warfarin Sodium (Coumadin Tab(*)) 5 mg PO DAILY@1700 [facility] PRN Reason: Protocol Last Admin: 05/13/17 16:33 Dose: 5 mg Vital Signs - 8 hr 05/14/17 05/14/17 05/14/17 05:13 07:25 07:48 Temperature 97.9 F Pulse Rate 80 Respiratory 18 12 15 Rate Blood Pressure 129/69 (mmHg) O2 Sat by Pulse 100 Oximetry 05/14/17 08:00 Temperature Pulse Rate Respiratory 16 Rate Blood Pressure (mmHg) O2 Sat by Pulse 100 Oximetry Oxygen Devices in Use Now: None Appearance: Middle aged male sitting up in bed, NAD Eyes: No Scleral Icterus Ears/Nose/Mouth/Throat: Mucous Membranes Moist Respiratory: Symmetrical Chest Expansion and Respiratory Effort, Clear to Auscultation Cardiovascular: NL Sounds; No Murmurs; No JVD, RRR, - - L>R LE edema Abdominal: NL Sounds; No Tenderness; No Distention Extremities: No Clubbing, Cyanosis Skin: No Rash or Ulcers, No Nodules or Sclerosis, - - slightly less erythema of the pubic region and scrotum Neurological: Alert and Oriented x 3 Result Diagrams: 05/14/17 05:20 05/14/17 05:20 Microbiology and Other Data: Microbiology 05/07/17 21:12 Nasal Screen MRSA (PCR)(KASSY) - Final Nasal Mrsa Negative Assess/Plan/Problems-Billing Mr Molina is a 66 yo M who has a chronic gilmore catheter for chronic urinary retention who presented to the ER with c/o scrotal swelling and was admitted for septic shock secondary to scrotal cellulitis and orchitis. - Patient Problems (1) Hypokalemia Current Visit: Yes Status: Acute Code(s): E87.6 - HYPOKALEMIA SNOMED Code( s): 41274968 Comment: The patient is persistently hypokalemic. This has been a problem in the past. Will aggressively replete and monitor. If K level improved tomorrow can go to [facility]. (2) Septic shock Current Visit: Yes Status: Acute Priority: High Code(s): A41.9 - SEPSIS, UNSPECIFIED ORGANISM; R65.21 - SEVERE SEPSIS WITH SEPTIC SHOCK SNOMED Code(s) : 13141153 Comment: Present on admission and now resolved after aggressive IVF hydration , pressors and appropriate ABx therapy. (3) Cellulitis of scrotum Current Visit: Yes Status: Acute Code(s): N49.2 - INFLAMMATORY DISORDERS OF SCROTUM SNOMED Code(s): 21145637 Comment: The patient presented to the ER with scrotal cellulitis and likely orchitis. It was felt on admission the patient did not have Talisha's gangrene. The patient has been changed to augmentin 875mg BID x 10 days (done PM) and then will go back on his home dose of doxycyline for suppressive therapy for his h/o osteomyelitis. (4) Acute renal failure Current Visit: Yes Status: Acute Comment: On admission the patient was in ARF with his creatinine >3x his baseline creatinine. The ARF is improving slowly. I suspect based on the slow recovery there was a component of ATN leading to the ARF. (5) Diarrhea Current Visit: Yes Status: Acute Code(s): R19.7 - DIARRHEA, UNSPECIFIED SNOMED Code(s): 62439094 Comment: Multiple loose stools overnight but nothing today. Will continue to monitor. (6) Urinary retention Current Visit: Yes Status: Acute Code(s): R33.9 - RETENTION OF URINE, UNSPECIFIED SNOMED Code(s): 421971622 Comment: Gilmore catheter was changed this hospitalization. Resume flomax. (7) Afib Current Visit: Yes Status: Chronic Priority: High Code(s): I48.91 - UNSPECIFIED ATRIAL FIBRILLATION SNOMED Code(s): 63776843 Comment: Continue digoxin and metoprolol. Coumadin restarted yesterday. INR check today. (8) DVT prophylaxis Current Visit: Yes Status: Acute Code(s): UEF0380 - SNOMED Code(s): 412660567 Comment: INR is now subtherapeutic. Start full dose lovenox until INR is therapeutic. (9) DNR (do not resuscitate) Current Visit: Yes Status: Acute
[2017-05-14] MEDS: KCL 10 MEQ/50 ML IVPREMIX* 10 MEQ/50 ML BAG IV SCH ×2 (12:40→14:26)
[2017-05-14] MEDS: Warfarin TAB(*) 5 MG PO SCH (16:22)
[2017-05-14] MEDS: Digoxin TAB* 0.125 MG PO SCH (22:22)
[2017-05-14] MEDS: Tamsulosin CAP* 0.4 MG PO SCH (22:23)
[2017-05-15] MEDS: Ferrous Sulfate TAB* 325 MG PO SCH (08:47)
[2017-05-15] MEDS: Enoxaparin(*) 100 MG/ML SYR SUBCUT SCH ×2 (08:47→21:32)
[2017-05-15] MEDS: Magnesium Oxide TAB* 400 MG PO SCH ×2 (08:47→21:32)
[2017-05-15] MEDS: Amoxicillin/Clavulanate TAB* 875 MG PO SCH (08:47)
[2017-05-15] MEDS: Potassium Chlor TAB* 20 MEQ TAB.ER PO SCH ×2 (08:47→21:31)
[2017-05-15] MEDS: Omeprazole CAP* 20 MG PO SCH (08:47)
[2017-05-15] MEDS: Metoprolol Tartrate TAB* 25 MG PO SCH (08:47)
--- NOTE | 2017-05-15 10:11 | PN ---
Progress Note - Progress Note Date of Service: 05/15/17 SOAP: Subjective: CC: scrotal cellulitis HPI: 66 yeaer old man with purulent drainage from gilmore catheter and diffuse scrotal edema. Pain and swelling in scrotum continue to improve. No fever, rash, or diarrhea. Objective: Vital Signs Temp 37.1 C 05/15/17 08:33 Pulse 97 05/15/17 08:33 Resp 16 05/15/17 08:33 BP 133/68 05/15/17 08:33 Pulse Ox 100 05/15/17 08:33 Intake & Output 05/14/17 05/15/17 05/15/17 18:59 06:59 18:59 Intake Total 1920 0 Output Total 1400 1675 Balance 520 -1675 Intake: IV Fluids 50 potassium phosphate 50 IVPB 100 Potassium Chl 10mEq 100 Oral 1770 0 Output: Gilmore 1400 1675 Other: # Bowel Movements 0 1 Estimated Stool Amount Large Gen:awake, no distress HEENT:PERRL, MMM Heart:RRR no murmur Lungs:CTA BL Abd:+BS NTND soft Skin: no rash : gilmore catheter, diffuse scrotal edema and mild induration, left testicle indurated and tender Laboratory Results - last 24 hr 05/14/17 12:45 INR (Anticoag Therapy) 1.80 H Assessment: 1. scrotal cellulitis and orchitis 2. urinary retention with chronic gilmore and catheter associated UTI 3. left ankle ORIF complicated by MSSA infection and I&D Plan: 1. 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
[2017-05-15 13:31] LABS: BUN/Creatinine Ratio 14.5 (8-20); Calcium 7.7 mg/dL (8.6-10.3); EGFR African American 74.6 (>60); Potassium 3.1 mmol/L (3.5-5.0)
[2017-05-15] MEDS ORDERED: Potassium Chlor TAB* 20 MEQ TAB.ER PO ONE (13:43)
--- NOTE | 2017-05-15 14:04 | PN ---
Subjective Date of Service: 05/15/17 Interval History: Pt is feeling well. He denies any pain. No SOB. He states the scrotal discomfort has improved. Family History: Unchanged from Admission Social History: Unchanged from Admission Past Medical History: Unchanged from Admission Objective Active Medications: Acetaminophen (Tylenol Tab*) 650 mg PO Q4H PRN PRN Reason: FEVER/PAIN Amoxicillin/Clavulanate Potassium (Augmentin Tab*) 875 mg PO BID [facility] Last Admin: 05/15/17 08:47 Dose: 875 mg Cyanocobalamin (Vitamin B12 Inj *) 1,000 mcg IM MONTHLY [facility] Digoxin (Lanoxin Tab*) 0.125 mg PO BEDTIME [facility] Last Admin: 05/14/17 22:22 Dose: 0.125 mg Enoxaparin Sodium (Lovenox(*)) 100 mg SUBCUT BID [facility] Last Admin: 05/15/17 08:47 Dose: 100 mg Ferrous Sulfate (Ferrous Sulfate Tab*) 325 mg PO DAILY [facility] Last Admin: 05/15/17 08:47 Dose: 325 mg Heparin Sodium (Porcine) (Heparin Flush Picc/Ml/Cvc(*)) 1 - 3 ml FLUSH 0600, 1800 [facility] PRN Reason: Protocol Last Admin: 05/15/17 06:28 Dose: 3 ml Norepinephrine Bitartrate 4 mg (/ Sodium Chloride) 250 mls @ 18.75 mls/hr IVPB .PER PARAMETERS [facility] PRN Reason: 5 MCG/MIN Loperamide HCl (Imodium Cap*) 2 mg PO .SEE DIRECTIONS PRN PRN Reason: DIARRHEA Last Admin: 05/14/17 05:13 Dose: 2 mg Magnesium Oxide (Magox 400 Tab*) 800 mg PO BID [facility] Last Admin: 05/15/17 08:47 Dose: 800 mg Metoprolol Tartrate (Lopressor Tab*) 25 mg PO DAILY [facility] Last Admin: 05/15/17 08:47 Dose: 25 mg Morphine Sulfate (Morphine Inj (Syringe)*) 1 mg IV Q4H PRN PRN Reason: PAIN Omeprazole (Prilosec Cap*) 20 mg PO DAILY [facility] Last Admin: 05/15/17 08:47 Dose: 20 mg Oxycodone HCl (Roxycodone Tab*) 5 mg PO Q4H PRN PRN Reason: PAIN Pharmacy Profile Note (Coumadin Daily Reminder*) 1 note FOLLOW UP 1700 [facility] Potassium Chloride (Klor Con Er Tab*) 20 meq PO BID [facility] Last Admin: 05/15/17 08:47 Dose: 20 meq Tamsulosin HCl (Flomax Cap*) 0.4 mg PO BEDTIME [facility] Last Admin: 05/14/17 22:23 Dose: 0.4 mg Warfarin Sodium (Coumadin Tab(*)) 6 mg PO DAILY@1700 [facility] PRN Reason: Protocol Vital Signs - 8 hr 05/15/17 05/15/17 05/15/17 08:00 08:33 11:43 Temperature 98.8 F 98.1 F Pulse Rate 97 94 Respiratory 16 16 18 Rate Blood Pressure 133/68 115/51 (mmHg) O2 Sat by Pulse 100 100 100 Oximetry Oxygen Devices in Use Now: None Appearance: Middle aged male lying in bed, NAD Eyes: No Scleral Icterus Ears/Nose/Mouth/Throat: Mucous Membranes Moist Respiratory: Symmetrical Chest Expansion and Respiratory Effort, Clear to Auscultation Cardiovascular: NL Sounds; No Murmurs; No JVD, RRR, - - trace LE edema Abdominal: NL Sounds; No Tenderness; No Distention Extremities: No Clubbing, Cyanosis Skin: No Nodules or Sclerosis, - - small orange sized stage III decubitus overlying the coccyx, scrotal erythema and induration improved further today Neurological: Alert and Oriented x 3 Result Diagrams: 05/14/17 05:20 05/15/17 13:05 Microbiology and Other Data: Microbiology 05/07/17 21:12 Nasal Screen MRSA (PCR)(KASSY) - Final Nasal Mrsa Negative Assess/Plan/Problems-Billing Mr Molina is a 66 yo M who has a chronic gilmore catheter for chronic urinary retention who presented to the ER with c/o scrotal swelling and was admitted for septic shock secondary to scrotal cellulitis and orchitis. - Patient Problems (1) Hypokalemia Current Visit: Yes Status: Acute Code(s): E87.6 - HYPOKALEMIA SNOMED Code( s): 99383976 Comment: Hypokalemia has improved some but he is still low. Will give KCl 40mEq now and increase standing potassium supplementation to 40mEq BID. Follow up BMP on 05/20/17. (2) Septic shock Current Visit: Yes Status: Acute Priority: High Code(s): A41.9 - SEPSIS, UNSPECIFIED ORGANISM; R65.21 - SEVERE SEPSIS WITH SEPTIC SHOCK SNOMED Code(s) : 59570529 Comment: Present on admission and now resolved after aggressive IVF hydration , pressors and appropriate ABx therapy. (3) Cellulitis of scrotum Current Visit: Yes Status: Acute Code(s): N49.2 - INFLAMMATORY DISORDERS OF SCROTUM SNOMED Code(s): 22795709 Comment: Continued improvement despite changing to augmentin. Will change dosing of augmentin to 500mg TID. (4) Acute renal failure Current Visit: Yes Status: Acute Comment: Creatinine continues to improve slowly. (5) Diarrhea Current Visit: Yes Status: Acute Code(s): R19.7 - DIARRHEA, UNSPECIFIED SNOMED Code(s): 50143390 Comment: Occasional loose stools. Continue prn imodium. (6) Urinary retention Current Visit: Yes Status: Acute Code(s): R33.9 - RETENTION OF URINE, UNSPECIFIED SNOMED Code(s): 647032244 Comment: Gilmore catheter was changed this hospitalization. Continue flomax. (7) Afib Current Visit: Yes Status: Chronic Priority: High Code(s): I48.91 - UNSPECIFIED ATRIAL FIBRILLATION SNOMED Code(s): 71671420 Comment: Continue digoxin and metoprolol. INR still subtherapeutic. Continue coumadin and lovenox for now (8) DVT prophylaxis Current Visit: Yes Status: Acute Code(s): FIA0695 - SNOMED Code(s): 276873699 Comment: INR is now subtherapeutic. Start full dose lovenox until INR is therapeutic. (9) DNR (do not resuscitate) Current Visit: Yes Status: Acute
[2017-05-15] MEDS ORDERED: Warfarin TAB(*) 6 MG PO SCH (17:00)
[2017-05-15] MEDS: Amoxicillin/Clavulanate TAB* 500 MG PO SCH (21:32)
[2017-05-15] MEDS: Tamsulosin CAP* 0.4 MG PO SCH (21:32)
[2017-05-15] MEDS: Digoxin TAB* 0.125 MG PO SCH (22:20)
--- NOTE | 2017-05-16 02:42 | DS ---
CC: Dr. Joya * DISCHARGE SUMMARY: DATE OF ADMISSION: 05/07/17 DATE OF DISCHARGE: 05/16/17 PRIMARY CARE PROVIDER: Dr. Joya. PRINCIPAL DIAGNOSIS: Septic shock secondary to scrotal cellulitis and orchitis. SECONDARY DIAGNOSES: 1. Persistent hyponatremia. 2. Acute renal failure secondary to likely acute tubular necrosis and obstruction. 3. Chronic urinary retention. 4. Atrial fibrillation. DISCHARGE MEDICATIONS: 1. Oxycodone 5 mg p.o. q.4 hours p.r.n. pain. 2. Potassium chloride 40 mEq p.o. b.i.d. (increased dose). 3. Pro-Stat 15 mL p.o. b.i.d. 4. Magnesium oxide 800 mg p.o. b.i.d. 5. Vitamin D 2000 units p.o. daily. 6. Ascorbic acid 500 mg p.o. b.i.d. 7. Metoprolol tartrate 25 mg p.o. daily. 8. Flomax 0.4 mg p.o. q.h.s. 9. Omeprazole 20 mg p.o. daily. 10. Ferrous sulfate 325 mg p.o. daily. 11. Digoxin 0.125 mg p.o. q.h.s. 12. Vitamin B12 1000 mcg IM monthly. 13. Imodium 2 mg p.o. after each loose stools. 14. Lovenox 100 mg subcutaneous twice daily until INR therapeutic. 15. Augmentin 500 mg p.o. t.i.d. x8 more days. 16. Doxycycline 100 mg p.o. twice daily to resume after completing the Augmentin. 17. Coumadin 6 mg p.o. daily. HOSPITAL COURSE: Mr. Molina is a 66-year-old male resident of [facility] who presented to the emergency room on 05/07/17 with complaints of scrotal swelling. The patient has a history of alcoholic liver cirrhosis as well as chronic kidney disease, atrial fibrillation, pulmonary embolism, status post Karlee filter, chronic urinary retention with chronic indwelling Briggs catheter who presents to the emergency room from [facility] with scrotal edema and swelling. The patient in the emergency room was noted to have systolic blood pressures in the 60s. The patient was also tachycardic and had a marked leukocytosis. The patient was admitted for septic shock secondary to scrotal cellulitis and orchitis. The patient had his Briggs catheter changed as the balloon of the Briggs that he presented which was noted to be within the prostatic urethra. Upon changing the catheter, purulent urine was able to be drained from the bladder. The patient's urine grew Proteus mirabilis from 05/07 obtained earlier that day. The patient was admitted to the intensive care unit and after aggressive IV fluid hydration and pressors, the patient's blood pressure improved. The patient was seen in the emergency room by Dr. Rowland who did not feel that Talisha's gangrene was likely the cause and this was likely just a scrotal cellulitis. 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 The patient also underwent abdomen and pelvis CT, which revealed diffuse distention and mild dilation of the colon extending to the rectum. This may reflect some obstruction versus distal colonic obstruction including some rectal neoplasm. Again as noted, sacral decubitus ulcer with erosive changes in the coccyx stable too, somewhat improved compared to 07/11/16 exam. The patient was admitted to the intensive care unit. The patient was ultimately seen by Dr. Lawrence on 05/11/17 after being initially treated with Zosyn from admission. Dr. Lawrence felt that Zosyn was an appropriate antibiotic and the vancomycin could be discontinued. The patient has had slow improvement in his scrotal swelling and erythema. On the day prior to discharge , there is minimal erythema and there is much less induration noted of the scrotum. The patient did have a marked leukocytosis on admission of 27.4 thousand. Two days prior to discharge, the patient's white blood cell count is down to 12.7. On 05/14/17, the patient was changed to Augmentin [address] twice daily. Dr. Lawrence has recommended changing to Augmentin 500 mg p.o. 3 times daily. This will continue for 8 more days. If the patient has no further improvement in the induration or erythema of the scrotum or if he spikes fevers or his white blood cell count increases, consideration will need to be had for resuming IV antibiotics. The patient will have a CBC obtained on the morning prior to discharge back to [facility]. The patient has a history of atrial fibrillation as well as DVT/PE. His INR when he came in was supratherapeutic at 4.39 this then went up to 7.36. His Coumadin was held and now his INR is subtherapeutic. The patient is currently receiving Coumadin 6 mg daily. Repeat INR is to be obtained on 05/20/17. Additionally, the patient has been found to be markedly hypokalemic. The patient's potassium on admission was normal; however, he became quite hypokalemic. He has received aggressive potassium supplementation. I am increasing his standing potassium supplementation to 40 mEq daily from 20 mEq twice daily. The patient will have a followup BMP obtained the morning of discharge as well as 05/20/17. The patient on admission also had acute renal failure with his creatinine being 3.71, which is greater than 3 times his baseline creatinine. His creatinine has very slowly began to trend down. I suspect the acute renal failure is secondary to likely obstruction as well as ATN given the slow recovery in his renal function. The patient has been persistently anemic during the hospitalization with his hemoglobin ranging in his usual anemic range. At this point, it is felt that the patient is stable for discharge back to [facility]. The patient does have a sacral/coccyx decubitus ulcer that appears healthy. The patient after completing his Augmentin will resume doxycycline 100 mg twice daily given his past infectious burden. FOLLOWUP CONCERNS: The patient is being discharged to [facility] on 05/16/17. ACTIVITY LEVEL: As tolerated. DIET: Regular. CONDITION ON DISCHARGE: Improved and stable. TIME SPENT: 40 minutes were spent discharging this patient. [id number]/[facility] #: [id number] MTDD
[2017-05-16 07:29] LABS: Hematocrit 27 % (42-52); Hemoglobin 8.9 g/dl (14.0-18.0); Mean Corpuscular HGB Conc 33 g/dl (31-36); Mean Corpuscular Hemoglobin 26 pg (27-31); Mean Corpuscular Volume 79 fL (80-94); Mean Platelet Volume 7 um3 (7.4-10.4); Red Blood Count 3.35 10^6/ul (4.0-5.4); Red Cell Distribution Width 18 % (10.5-15); White Blood Count 8.8 10^3/ul (3.5-10.8)
[2017-05-16 07:46] LABS: BUN/Creatinine Ratio 12.8 (8-20); Calcium 7.7 mg/dL (8.6-10.3); EGFR African American 73.9 (>60); EGFR Non-African American 57.4 (>60)
[2017-05-16 08:19] VITALS: BP 116/58
[2017-05-16] MEDS: Amoxicillin/Clavulanate TAB* 500 MG PO SCH (09:39)
[2017-05-16] MEDS: Omeprazole CAP* 20 MG PO SCH (09:39)
[2017-05-16] MEDS: Metoprolol Tartrate TAB* 25 MG PO SCH (09:41)
[2017-05-16] MEDS: Magnesium Oxide TAB* 400 MG PO SCH (09:41)
[2017-05-16] MEDS: Potassium Chlor TAB* 20 MEQ TAB.ER PO SCH (09:41)
[2017-05-16] MEDS: Ferrous Sulfate TAB* 325 MG PO SCH (09:42)
[2017-05-16] MEDS: Enoxaparin(*) 100 MG/ML SYR SUBCUT SCH (09:42)
[2017-06-03] MEDS ORDERED: Cyanocobalamin INJ * 1,000 MCG/ML VIAL 1 ML VIAL IM SCH (09:00)
== END 2017-05-16 11:30 | DRG 698 ==
LOC: ED 15:22 → ICU 20:42 → MED 05-10 12:35
PROVIDERS: ADMIT Internal Medicine; ATTEND Internal Medicine
PROC: 02HV33Z Insertion of Infusion Device into Superior Vena Cava, Percutaneous Approach (ICD-10-PCS; principal; 2017-05-08)
DX: T83.518A Infection and inflammatory reaction due to other urinary catheter, initial encounter (principal); A41.9 Sepsis, unspecified organism; N17.0 Acute kidney failure with tubular necrosis; R65.21 Severe sepsis with septic shock; G93.41 Metabolic encephalopathy; L89.154 Pressure ulcer of sacral region, stage 4; E87.2 Acidosis; E87.1 Hypo-osmolality and hyponatremia; N39.0 Urinary tract infection, site not specified; M46.28 Osteomyelitis of vertebra, sacral and sacrococcygeal region; Y73.1 Therapeutic (nonsurgical) and rehabilitative gastroenterology and urology devices associated with adverse incidents; I95.9 Hypotension, unspecified; I48.2 Chronic atrial fibrillation; K70.30 Alcoholic cirrhosis of liver without ascites; R15.9 Full incontinence of feces; R32 Unspecified urinary incontinence; I25.10 Atherosclerotic heart disease of native coronary artery without angina pectoris; Z86.718 Personal history of other venous thrombosis and embolism; R62.50 Unspecified lack of expected normal physiological development in childhood; Z82.49 Family history of ischemic heart disease and other diseases of the circulatory system; I12.9 Hypertensive chronic kidney disease with stage 1 through stage 4 chronic kidney disease, or unspecified chronic kidney disease; N18.9 Chronic kidney disease, unspecified; Z86.711 Personal history of pulmonary embolism; N40.1 Benign prostatic hyperplasia with lower urinary tract symptoms; R33.8 Other retention of urine; N45.2 Orchitis; Z83.3 Family history of diabetes mellitus; K80.20 Calculus of gallbladder without cholecystitis without obstruction; T44.7X5A Adverse effect of beta-adrenoreceptor antagonists, initial encounter; Y92.9 Unspecified place or not applicable; Z79.01 Long term (current) use of anticoagulants; B96.4 Proteus (mirabilis) (morganii) as the cause of diseases classified elsewhere; E87.6 Hypokalemia; K63.89 Other specified diseases of intestine; D63.8 Anemia in other chronic diseases classified elsewhere
CPT/HCPCS: 36415; 71010; 74176; 76870; 80048; 80053; 80162; 80202; 81002; 81003; 81015; 82272; 82436; 83605; 83735; 83935; 83986; 84100; 84133; 84300; 84484; 85025; 85027; 85610; 85730; 86850; 86900; 86901; 87040; 87077; 87086; 87186; 87502; 87641; 93005; 93306; A9270-GY; C1751; C8929; J1650; J1720; J2543; J3370; J3475; J3480

== ENCOUNTER 2019-04-25 16:01 | Emergency (ER) | payer MEDICARE, BC, MEDICAID ==
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
[2019-04-25 17:16] LABS: ABS Eosinophils 0.4 10^3/ul (0-0.6); ABS Lymphocytes 1.8 10^3/ul (1.0-4.8); ABS Monocytes 1.3 10^3/ul (0-0.8); ABS Neutrophils 11.4 10^3/ul (1.5-7.7); Eosinophil % 2.7 %; Hematocrit 41 % (42-52); Hemoglobin 13.1 g/dL (14.0-18.0); Mean Corpuscular HGB Conc 32 g/dL (31-36); Mean Corpuscular Hemoglobin 26 pg (27-31); Mean Corpuscular Volume 83 fL (80-94); Mean Platelet Volume 7.5 fL (7.4-10.4); Nucleated Red Blood Cells % 0.1; Platelet Count 263 10^3/uL (150-450); Red Blood Count 4.97 10^6 /uL (4.18-5.48); Red Cell Distribution Width 17 % (10-15); White Blood Count 14.9 10^3/uL (3.5-10.8)
[2019-04-25 17:37] LABS: Albumin 3.5 g/dL (3.2-5.2); Albumin/Globulin Ratio 0.9 (1-3); BUN/Creatinine Ratio 19.4 (8-20); C Reactive Protein 102.12 mg/L (<8.01); Calcium 9.3 mg/dL (8.6-10.3); EGFR African American 48.5 (>60); Globulin 3.9 g/dL (2-4); Potassium 4.1 mmol/L (3.5-5.0); Total Bilirubin 0.9 mg/dL (0.2-1.0); Total Protein 7.4 g/dL (6.4-8.9)
[2019-04-25] MEDS ORDERED: Iodixanol* (CONTRAST) 320 MG/ML 100 ML SDV IV ONE ×2 (20:06→20:07)
[2019-04-25] MEDS ORDERED: Vancomycin(*) 1,000 MG in NS 0.9% 250 ML* 250 ML IV ONE (22:05)
[2019-04-25] MEDS ORDERED: Piperacillin/Tazobac ADVAN(*) 3.375 GM in NS 0.9% 100 ML* 100 ML IVPB ONE (22:07)
[2019-04-25] MEDS ORDERED: metroNIDAZOLE IV 500 MG/100ML* 500 MG/100 ML BAG IVPB ONE (22:07)
[2019-04-26 04:06] VITALS: BP 122/74
== END 2019-04-26 04:20 | disposition short-term general hospital (02) ==
LOC: ED 16:01
DX: N49.2 Inflammatory disorders of scrotum (principal); L89.159 Pressure ulcer of sacral region, unspecified stage; K80.20 Calculus of gallbladder without cholecystitis without obstruction; K76.89 Other specified diseases of liver; I48.91 Unspecified atrial fibrillation; Z79.01 Long term (current) use of anticoagulants; I25.10 Atherosclerotic heart disease of native coronary artery without angina pectoris; I12.9 Hypertensive chronic kidney disease with stage 1 through stage 4 chronic kidney disease, or unspecified chronic kidney disease; N18.9 Chronic kidney disease, unspecified; K70.30 Alcoholic cirrhosis of liver without ascites; Z87.891 Personal history of nicotine dependence
CPT/HCPCS: 36415; 74177; 76870; 80053; 83605; 85025; 86140; 87040; 96365; 96366; 99284; J2543; J3370

== ENCOUNTER 2021-04-12 12:10 | Inpatient (IN) ==
[2021-04-12 15:31] LABS: Hematocrit 47 % (42-52); Mean Corpuscular HGB Conc 32 g/dL (31-36); Mean Corpuscular Hemoglobin 28 pg (27-31); Mean Corpuscular Volume 88 fL (80-94); Mean Platelet Volume 8.2 fL (7.4-10.4); Platelet Count 186 10^3/uL (150-450); Red Blood Count 5.34 10^6 /uL (4.18-5.48); Red Cell Distribution Width 17 % (10-15); White Blood Count 18.6 10^3/uL (3.5-10.8)
[2021-04-12 15:51] LABS: ALT 15 U/L (7-52); AST 14 U/L (13-39); Albumin 4.1 g/dL (3.2-5.2); Albumin/Globulin Ratio 1.2 (1-3); Alkaline Phosphatase 136 U/L (35-149); Anion Gap 8 mmol/L (2-11); Blood Urea Nitrogen 34 mg/dL (6-24); CO2 Carbon Dioxide 24 mmol/L (22-32); Calcium 9.3 mg/dL (8.6-10.3); Chloride 102 mmol/L (101-111); Globulin 3.5 g/dL (2-4); Glucose 104 mg/dL (70-100); Lipase < 10 U/L (11.0-82.0); Potassium 4.1 mmol/L (3.5-5.0); Sodium 134 mmol/L (135-145); Total Protein 7.6 g/dL (6.4-8.9)
[2021-04-12] MEDS ORDERED: Iodixanol (CONTRAST) 320 MG/ML 100 ML SDV IV ONE (16:17)
[2021-04-12 16:24] LABS: ABS Monocytes 1.7 10^3/ul (0-0.8); ABS Neutrophils 15.8 10^3/ul (1.5-7.7); Lymphocyte % 5.6 %
[2021-04-12] MEDS ORDERED: Morphine 2 MG/ML SYRINGE IV ONE (17:46)
[2021-04-12] MEDS ORDERED: Lactated Ringers 1000 ml BAG 1,000 ML IV ONE (18:04)
[2021-04-12] MEDS ORDERED: Piperacillin/Tazobac ADVAN 3.375 GM in NS 0.9% 100 ml BAG 100 ML IV ONE (18:10)
[2021-04-12] MEDS ORDERED: fentaNYL 100 mcg/2 ml 50 MCG/ML VIAL ONE (19:08)
[2021-04-12] MEDS ORDERED: Midazolam 10 mg/10 ml VIAL 1 mg/ml 10 ml VIAL (10 mg) ONE (19:08)
[2021-04-12] MEDS ORDERED: Ondansetron 4 mg VIAL 2 MG/ML 2 ml VIAL IV PRN (20:24)
[2021-04-12] MEDS ORDERED: Heparin 5000 UNITS/ML 1 mL VIAL SUBCUT ONE (20:30)
[2021-04-12] MEDS ORDERED: Zosyn per Pharmacy NOTE FOLLOW UP SCH (21:00)
[2021-04-12 21:21] LABS: Urine Appearance Cloudy; Urine Bilirubin Negative (Negative); Urine Blood 2+ (Negative); Urine Color Yellow; Urine Glucose Negative (Negative); Urine Ketones Negative (Negative); Urine Nitrite Negative (Negative); Urine Protein 1+(30 mg/dL) (Negative); Urine Urobilinogen Negative (Negative)
[2021-04-12 21:27] LABS: Urine Bacteria Absent (Absent); Urine Red Blood Cell 2+(6-10/hpf) (Absent); Urine Squamous Epithelial Cell Present (Absent); Urine White Blood Cell Trace(0-5/hpf) (Absent)
[2021-04-12 21:30] LABS: Urine Specific Gravity > 1.060 (1.002-1.030)
[2021-04-12 21:37] LABS: Rapid COVID-19 Molecular Undetected (Undetected)
[2021-04-12] MEDS: Piperacillin/Tazobac ADVAN 3.375 GM in NS 0.9% 100 ml BAG 100 ML IV SCH (22:37)
[2021-04-13] MEDS: NS 0.9% 1000 ml BAG 1,000 ML IV SCH ×2 (06:23→20:26)
[2021-04-13] MEDS: Piperacillin/Tazobac ADVAN 3.375 GM in NS 0.9% 100 ml BAG 100 ML IV SCH ×3 (06:45→23:07)
[2021-04-13 07:50] LABS: ABS Monocytes 1.1 10^3/ul (0-0.8); ABS Neutrophils 10.8 10^3/ul (1.5-7.7); Eosinophil % 0.4 %; Hematocrit 42 % (42-52); Hemoglobin 13.7 g/dL (14.0-18.0); Lymphocyte % 7.6 %; Mean Corpuscular HGB Conc 33 g/dL (31-36); Mean Corpuscular Hemoglobin 28 pg (27-31); Mean Corpuscular Volume 87 fL (80-94); Mean Platelet Volume 8.1 fL (7.4-10.4); Platelet Count 170 10^3/uL (150-450); Red Blood Count 4.83 10^6 /uL (4.18-5.48); Red Cell Distribution Width 16 % (10-15)
[2021-04-13 08:07] LABS: Calcium 8.8 mg/dL (8.6-10.3); Potassium 4.2 mmol/L (3.5-5.0)
[2021-04-13 16:31] LABS: Digoxin 0.7 ng/ml (0.8-2.0)
[2021-04-14] MEDS: NS 0.9% 1000 ml BAG 1,000 ML IV SCH (04:00)
[2021-04-14] MEDS: Piperacillin/Tazobac ADVAN 3.375 GM in NS 0.9% 100 ml BAG 100 ML IV SCH (06:07)
[2021-04-14 06:18] LABS: ABS Eosinophils 0.1 10^3/ul (0-0.6); ABS Lymphocytes 0.7 10^3/ul (1.0-4.8); ABS Monocytes 0.7 10^3/ul (0-0.8); ABS Neutrophils 8.1 10^3/ul (1.5-7.7); Eosinophil % 0.9 %; Hematocrit 41 % (42-52); Hemoglobin 13.5 g/dL (14.0-18.0); Lymphocyte % 6.8 %; Mean Corpuscular HGB Conc 33 g/dL (31-36); Mean Corpuscular Hemoglobin 28 pg (27-31); Mean Corpuscular Volume 87 fL (80-94); Mean Platelet Volume 8.3 fL (7.4-10.4); Nucleated Red Blood Cells % 0.1; Platelet Count 197 10^3/uL (150-450); Red Blood Count 4.75 10^6 /uL (4.18-5.48); Red Cell Distribution Width 16 % (10-15); White Blood Count 9.5 10^3/uL (3.5-10.8)
[2021-04-14 06:32] LABS: Calcium 8.2 mg/dL (8.6-10.3)
[2021-04-14 07:19] LABS: Hepatitis B Surface Ab Not Immune (Immune)
[2021-04-14] MEDS ORDERED: Flu vaccine *QUAD* 2021-22* 0.5 ML SYRINGE IM ONE (09:00)
[2021-04-14] MEDS: CMC:Lactase Enzyme (NF) 3,000 UNIT TAB PO SCH ×2 (12:40→16:42)
[2021-04-14] MEDS: Morphine 2 MG/ML SYRINGE IV PRN (15:13)
[2021-04-14] MEDS ORDERED: Enoxaparin 40 MG/0.4 ML SYR SUBCUT SCH (16:00)
[2021-04-14] MEDS ORDERED: Lactated Ringers 1000 ml BAG 1,000 ML IV ONE (18:11)
[2021-04-15 06:42] LABS: ABS Eosinophils 0.2 10^3/ul (0-0.6); ABS Lymphocytes 0.7 10^3/ul (1.0-4.8); ABS Monocytes 0.7 10^3/ul (0-0.8); ABS Neutrophils 4.6 10^3/ul (1.5-7.7); Eosinophil % 2.7 %; Hematocrit 39 % (42-52); Hemoglobin 12.8 g/dL (14.0-18.0); Lymphocyte % 11.8 %; Mean Corpuscular HGB Conc 33 g/dL (31-36); Mean Corpuscular Hemoglobin 29 pg (27-31); Mean Corpuscular Volume 88 fL (80-94); Mean Platelet Volume 7.6 fL (7.4-10.4); Platelet Count 178 10^3/uL (150-450); Red Blood Count 4.46 10^6 /uL (4.18-5.48); Red Cell Distribution Width 16 % (10-15); White Blood Count 6.2 10^3/uL (3.5-10.8)
[2021-04-15 07:01] LABS: Calcium 8.3 mg/dL (8.6-10.3); Potassium 3.9 mmol/L (3.5-5.0)
[2021-04-15] MEDS: CMC:Lactase Enzyme (NF) 3,000 UNIT TAB PO SCH ×3 (08:28→16:19)
[2021-04-15] MEDS ORDERED: Rocuronium 50 mg VIAL 10 mg/ml 5 ml VIAL (50 mg) ONE ×3 (12:08→14:17)
[2021-04-15] MEDS ORDERED: Propofol 10 MG/ML 20 ML BTL ONE (12:08)
[2021-04-15] MEDS ORDERED: Midazolam 2 mg/2 ml VIAL 1 mg/ml 2 ml VIAL (2 mg) ONE (12:08)
[2021-04-15] MEDS ORDERED: fentaNYL 250 mcg/5 ml 50 MCG/ML 5 ml VIAL (250 MCG) ONE (12:08)
[2021-04-15] MEDS ORDERED: Lidocaine 2% PF 5 ML VIAL ONE (12:08)
[2021-04-15] MEDS ORDERED: Ertapenem 1 GM in NS 0.9% 50 ML IVPB ONE (12:15)
[2021-04-15] MEDS ORDERED: Ondansetron 4 mg VIAL 2 MG/ML 2 ml VIAL ONE (13:49)
[2021-04-15] MEDS ORDERED: Dexamethasone IV 4 MG/ML VIAL 1 ml VIAL ONE (13:49)
[2021-04-15] MEDS ORDERED: DiMENhydriNATE IV 50 mg/ml 1 ml VIAL IV PUSH PRN (13:57)
[2021-04-15] MEDS ORDERED: Ondansetron 4 mg VIAL 2 MG/ML 2 ml VIAL IV PRN (13:57)
[2021-04-15] MEDS ORDERED: Naloxone 0.4 mg VIAL 0.4 mg/ml 1 ml VIAL IV PRN (13:57)
[2021-04-15] MEDS ORDERED: Prochlorperazine 5 mg/ml 2 ml VIAL (10 mg) IV PRN (13:57)
[2021-04-15] MEDS ORDERED: Acetaminophen IV 1 GM/100ML 100 ML IV PRN (13:57)
[2021-04-15] MEDS ORDERED: diPHENhydraMINE IV 50 MG/ML 1 ml VIAL (BENADRYL) IV PRN (13:57)
[2021-04-15] MEDS ORDERED: hydrALAZINE 20 mg/ml 1 ML Vial IV ONE (14:15)
[2021-04-15] MEDS ORDERED: fentaNYL 100 mcg/2 ml 50 MCG/ML VIAL ONE ×2 (14:39→15:11)
[2021-04-15] MEDS ORDERED: Sevoflurane BOTTLE ONE (14:44)
[2021-04-15] MEDS ORDERED: Acetaminophen IV 1 GM/100ML 100 ML IV ONE (15:11)
[2021-04-15] MEDS: fentaNYL 100 mcg/2 ml 50 MCG/ML VIAL IV PRN ×4 (15:13→15:50)
[2021-04-15] MEDS: Ondansetron 4 mg VIAL 2 MG/ML 2 ml VIAL IV PRN (16:58)
[2021-04-15] MEDS: Morphine 2 MG/ML SYRINGE IV PRN ×2 (16:58→23:42)
[2021-04-15 18:43] LABS: Phosphorus 2.1 mg/dL (2.5-5.0)
[2021-04-15] MEDS ORDERED: Lactated Ringers 1000 ml BAG 1,000 ML IV SCH (19:00)
[2021-04-16 06:21] LABS: ABS Lymphocytes 0.9 10^3/ul (1.0-4.8); ABS Monocytes 0.9 10^3/ul (0-0.8); ABS Neutrophils 8.2 10^3/ul (1.5-7.7); Hematocrit 43 % (42-52); Hemoglobin 13.6 g/dL (14.0-18.0); Lymphocyte % 8.6 %; Mean Corpuscular HGB Conc 32 g/dL (31-36); Mean Corpuscular Hemoglobin 28 pg (27-31); Mean Corpuscular Volume 90 fL (80-94); Platelet Count 209 10^3/uL (150-450); Red Cell Distribution Width 17 % (10-15)
[2021-04-16 06:44] LABS: Calcium 7.9 mg/dL (8.6-10.3)
[2021-04-16 06:55] LABS: Potassium 5.2 mmol/L (3.5-5.0)
[2021-04-16] MEDS: Morphine 2 MG/ML SYRINGE IV PRN (08:00)
[2021-04-16] MEDS: CMC:Lactase Enzyme (NF) 3,000 UNIT TAB PO SCH ×3 (08:07→18:48)
[2021-04-16 17:42] LABS: Hematocrit 41 % (42-52)
[2021-04-17 07:03] LABS: Hematocrit 44 % (42-52); Mean Corpuscular HGB Conc 32 g/dL (31-36); Mean Corpuscular Hemoglobin 29 pg (27-31); Mean Corpuscular Volume 90 fL (80-94); Mean Platelet Volume 7.7 fL (7.4-10.4); Platelet Count 223 10^3/uL (150-450); Red Blood Count 4.85 10^6 /uL (4.18-5.48); Red Cell Distribution Width 17 % (10-15); White Blood Count 9.6 10^3/uL (3.5-10.8)
[2021-04-17 07:05] LABS: ABS Eosinophils 0.1 10^3/ul (0-0.6); ABS Lymphocytes 1.1 10^3/ul (1.0-4.8); ABS Neutrophils 7.3 10^3/ul (1.5-7.7); Lymphocyte % 11.4 %
[2021-04-17 07:20] LABS: Calcium 8.6 mg/dL (8.6-10.3); Potassium 4.7 mmol/L (3.5-5.0); eGFR CKD-EPI 58.4 (>60)
[2021-04-17] MEDS: CMC:Lactase Enzyme (NF) 3,000 UNIT TAB PO SCH ×3 (09:46→17:53)
[2021-04-17 13:12] LABS: Digoxin 0.8 ng/ml (0.8-2.0)
[2021-04-17 13:27] LABS: TSH Ultra Thyroid Stim Horm 1.87 mcIU/mL (0.34-5.60)
[2021-04-17] MEDS ORDERED: NS 0.9% 500 ml BAG 500 ML IV ONE (13:45)
[2021-04-17 17:14] LABS: Calcium 8.4 mg/dL (8.6-10.3); Potassium 4.4 mmol/L (3.5-5.0); eGFR CKD-EPI 62.4 (>60)
[2021-04-17] MEDS: Ondansetron 4 mg VIAL 2 MG/ML 2 ml VIAL IV PRN (17:51)
[2021-04-17] MEDS ORDERED: NS 0.9% 1000 ml BAG 1,000 ML IV SCH (20:15)
[2021-04-18] MEDS: Ondansetron 4 mg VIAL 2 MG/ML 2 ml VIAL IV PRN ×3 (01:43→22:11)
[2021-04-18] MEDS: Metoprolol Tartrate 5 mg VIAL 5 ml VIAL (1 mg/ml) IV SCH ×6 (05:35→21:44)
[2021-04-18 06:48] LABS: ABS Eosinophils 0.1 10^3/ul (0-0.6); ABS Lymphocytes 0.9 10^3/ul (1.0-4.8); ABS Monocytes 0.9 10^3/ul (0-0.8); ABS Neutrophils 5.8 10^3/ul (1.5-7.7); Eosinophil % 1.6 %; Hematocrit 40 % (42-52); Hemoglobin 12.8 g/dL (14.0-18.0); Lymphocyte % 11.9 %; Mean Corpuscular HGB Conc 32 g/dL (31-36); Mean Corpuscular Hemoglobin 28 pg (27-31); Mean Corpuscular Volume 88 fL (80-94); Mean Platelet Volume 7.6 fL (7.4-10.4); Platelet Count 219 10^3/uL (150-450); Red Blood Count 4.53 10^6 /uL (4.18-5.48); Red Cell Distribution Width 16 % (10-15); White Blood Count 7.8 10^3/uL (3.5-10.8)
[2021-04-18 07:08] LABS: Albumin 2.5 g/dL (3.2-5.2); Albumin/Globulin Ratio 0.9 (1-3); Calcium 8.1 mg/dL (8.6-10.3); Globulin 2.7 g/dL (2-4); Potassium 4.5 mmol/L (3.5-5.0); Total Bilirubin 0.7 mg/dL (0.2-1.0); Total Protein 5.2 g/dL (6.4-8.9); eGFR CKD-EPI 72.9 (>60)
[2021-04-18] MEDS: CMC:Lactase Enzyme (NF) 3,000 UNIT TAB PO SCH ×3 (07:27→15:40)
[2021-04-18] MEDS ORDERED: NS 0.9% 1000 ml BAG 1,000 ML IV SCH (09:45)
[2021-04-18 17:19] LABS: Hepatitis B Surface Antigen Nonreactive (Nonreactive)
[2021-04-18] MEDS: NS 0.9% 1000 ml BAG 1,000 ML IV SCH (21:59)
[2021-04-19] MEDS: Metoprolol Tartrate 5 mg VIAL 5 ml VIAL (1 mg/ml) IV SCH ×7 (02:59→22:18)
[2021-04-19 07:08] LABS: ABS Basophils 0.1 10^3/ul (0-0.2); ABS Eosinophils 0.1 10^3/ul (0-0.6); ABS Lymphocytes 1.1 10^3/ul (1.0-4.8); ABS Monocytes 0.7 10^3/ul (0-0.8); ABS Neutrophils 5.1 10^3/ul (1.5-7.7); Eosinophil % 1.9 %; Hematocrit 42 % (42-52); Hemoglobin 13.6 g/dL (14.0-18.0); Lymphocyte % 15.7 %; Mean Corpuscular HGB Conc 33 g/dL (31-36); Mean Corpuscular Hemoglobin 29 pg (27-31); Mean Corpuscular Volume 88 fL (80-94); Mean Platelet Volume 7.3 fL (7.4-10.4); Platelet Count 216 10^3/uL (150-450); Red Blood Count 4.74 10^6 /uL (4.18-5.48); Red Cell Distribution Width 16 % (10-15); White Blood Count 7.1 10^3/uL (3.5-10.8)
[2021-04-19 07:22] LABS: Calcium 8.4 mg/dL (8.6-10.3); Magnesium 1.9 mg/dL (1.9-2.7); Potassium 4.7 mmol/L (3.5-5.0)
[2021-04-19 07:27] LABS: eGFR CKD-EPI 66.2 (>60)
[2021-04-19] MEDS: CMC:Lactase Enzyme (NF) 3,000 UNIT TAB PO SCH ×3 (10:26→14:53)
[2021-04-19] MEDS ORDERED: Perflutren Lipid Microsphere 3 ML VIAL ONE ×2 (11:34→11:50)
[2021-04-19] MEDS: NS 0.9% 1000 ml BAG 1,000 ML IV SCH (14:00)
[2021-04-19] MEDS ORDERED: Digoxin IV 0.5 MG/2 ML AMP (0.25 MG/ML) IV SLOW PU SCH ×2 (17:00)
[2021-04-19] MEDS: DIGOXIN PED IV SCH (18:24)
[2021-04-20] MEDS: Ondansetron 4 mg VIAL 2 MG/ML 2 ml VIAL IV PRN ×2 (01:01→14:14)
[2021-04-20] MEDS: Metoprolol Tartrate 5 mg VIAL 5 ml VIAL (1 mg/ml) IV SCH ×6 (02:36→21:15)
[2021-04-20] MEDS ORDERED: Prochlorperazine 5 mg/ml 2 ml VIAL (10 mg) IV PRN (03:26)
[2021-04-20] MEDS: NS 0.9% 1000 ml BAG 1,000 ML IV SCH (04:57)
[2021-04-20 05:42] LABS: Hematocrit 41 % (42-52)
[2021-04-20] MEDS: CMC:Lactase Enzyme (NF) 3,000 UNIT TAB PO SCH ×3 (09:35→16:30)
[2021-04-20] MEDS: DIGOXIN PED IV SCH (17:18)
[2021-04-21] MEDS: Ondansetron 4 mg VIAL 2 MG/ML 2 ml VIAL IV PRN (03:02)
[2021-04-21] MEDS: Metoprolol Tartrate 5 mg VIAL 5 ml VIAL (1 mg/ml) IV SCH ×6 (04:26→20:14)
[2021-04-21 05:13] LABS: Hematocrit 40 % (42-52); Hemoglobin 12.9 g/dL (14.0-18.0)
[2021-04-21 05:38] LABS: Calcium 8.4 mg/dL (8.6-10.3); eGFR CKD-EPI 67.6 (>60)
[2021-04-21] MEDS: CMC:Lactase Enzyme (NF) 3,000 UNIT TAB PO SCH ×3 (07:26→15:23)
[2021-04-21] MEDS ORDERED: NS 0.45% 1000 ml BAG 1,000 ML IV SCH (09:00)
[2021-04-21 16:28] LABS: CO2 Carbon Dioxide 34 mmol/L (22-32); Calcium 8.2 mg/dL (8.6-10.3); Chloride 106 mmol/L (101-111)
[2021-04-21] MEDS: DIGOXIN PED IV SCH (16:32)
[2021-04-21 16:34] LABS: Blood Urea Nitrogen 28 mg/dL (6-24); Glucose 67 mg/dL (70-100); eGFR CKD-EPI 68.3 (>60)
[2021-04-21 16:35] LABS: Anion Gap 8 mmol/L (2-11); Sodium 148 mmol/L (135-145)
[2021-04-21] MEDS ORDERED: D5W 1/2 NS KCl 20 meq 1000 ml 1,000 ML IV SCH (18:00)
[2021-04-22] MEDS: Metoprolol Tartrate 5 mg VIAL 5 ml VIAL (1 mg/ml) IV SCH ×6 (00:24→20:30)
[2021-04-22 06:47] LABS: Calcium 8.6 mg/dL (8.6-10.3); Magnesium 1.9 mg/dL (1.9-2.7); Potassium 4.2 mmol/L (3.5-5.0); eGFR CKD-EPI 65.6 (>60)
[2021-04-22] MEDS: CMC:Lactase Enzyme (NF) 3,000 UNIT TAB PO SCH ×3 (08:03→16:14)
[2021-04-22 09:18] LABS: PCO2 Arterial 59 mmHg (35-45); PO2 Arterial 77 mmHg (80-100)
[2021-04-22] MEDS: D5W 1/2 NS 1000 ml BAG 1,000 ML IV SCH (12:14)
[2021-04-22 16:57] LABS: Calcium 8.3 mg/dL (8.6-10.3); Potassium 3.9 mmol/L (3.5-5.0); eGFR CKD-EPI 69.1 (>60)
[2021-04-22] MEDS: DIGOXIN PED IV SCH (17:17)
[2021-04-23] MEDS: D5W 1/2 NS 1000 ml BAG 1,000 ML IV SCH ×2 (00:09→12:32)
[2021-04-23] MEDS: Metoprolol Tartrate 5 mg VIAL 5 ml VIAL (1 mg/ml) IV SCH ×5 (00:22→17:41)
[2021-04-23 08:09] LABS: ABS Eosinophils 0.2 10^3/ul (0-0.6); ABS Lymphocytes 1.1 10^3/ul (1.0-4.8); ABS Monocytes 0.5 10^3/ul (0-0.8); ABS Neutrophils 4.8 10^3/ul (1.5-7.7); Eosinophil % 2.7 %; Hematocrit 39 % (42-52); Hemoglobin 12.7 g/dL (14.0-18.0); Lymphocyte % 16.4 %; Mean Corpuscular HGB Conc 33 g/dL (31-36); Mean Corpuscular Hemoglobin 29 pg (27-31); Mean Corpuscular Volume 87 fL (80-94); Mean Platelet Volume 7.4 fL (7.4-10.4); Platelet Count 169 10^3/uL (150-450); Red Blood Count 4.45 10^6 /uL (4.18-5.48); Red Cell Distribution Width 16 % (10-15); White Blood Count 6.6 10^3/uL (3.5-10.8)
[2021-04-23] MEDS: CMC:Lactase Enzyme (NF) 3,000 UNIT TAB PO SCH ×3 (08:22→17:43)
[2021-04-23 08:25] LABS: Albumin 2.7 g/dL (3.2-5.2); Calcium 8.2 mg/dL (8.6-10.3); Globulin 2.8 g/dL (2-4); Magnesium 1.7 mg/dL (1.9-2.7); Potassium 3.7 mmol/L (3.5-5.0); Total Protein 5.5 g/dL (6.4-8.9); eGFR CKD-EPI 70.6 (>60)
[2021-04-23] MEDS ORDERED: Magnesium Sulfate 2 gm BAG 2 GM/50 ML BAG IVPB ONE (09:32)
[2021-04-23] MEDS: DIGOXIN PED IV SCH (17:45)
[2021-04-24] MEDS: ceFAZolin 2 GM in NS PREMIX 2 GM/100 ML BAG IVPB SCH ×4 (00:01→23:30)
[2021-04-24 06:56] LABS: ABS Eosinophils 0.1 10^3/ul (0-0.6); ABS Lymphocytes 1.2 10^3/ul (1.0-4.8); ABS Monocytes 0.4 10^3/ul (0-0.8); ABS Neutrophils 5.1 10^3/ul (1.5-7.7); Eosinophil % 2.1 %; Hematocrit 37 % (42-52); Lymphocyte % 17.8 %; Mean Corpuscular HGB Conc 32 g/dL (31-36); Mean Corpuscular Hemoglobin 29 pg (27-31); Mean Corpuscular Volume 88 fL (80-94); Mean Platelet Volume 7.9 fL (7.4-10.4); Platelet Count 125 10^3/uL (150-450); Red Blood Count 4.23 10^6 /uL (4.18-5.48); Red Cell Distribution Width 15 % (10-15); White Blood Count 6.8 10^3/uL (3.5-10.8)
[2021-04-24 06:58] LABS: Calcium 7.8 mg/dL (8.6-10.3); Magnesium 1.8 mg/dL (1.9-2.7); Potassium 4.5 mmol/L (3.5-5.0)
[2021-04-24 07:03] LABS: eGFR CKD-EPI 82.9 (>60)
[2021-04-24] MEDS: CMC:Lactase Enzyme (NF) 3,000 UNIT TAB PO SCH ×3 (09:12→17:47)
[2021-04-24] MEDS ORDERED: Magnesium Sulfate 2 gm BAG 2 GM/50 ML BAG IVPB ONE (12:13)
[2021-04-25] MEDS: ceFAZolin 2 GM in NS PREMIX 2 GM/100 ML BAG IVPB SCH ×2 (05:28→14:37)
[2021-04-25] MEDS: CMC:Lactase Enzyme (NF) 3,000 UNIT TAB PO SCH ×3 (07:44→16:24)
[2021-04-25 09:45] LABS: Calcium 8.7 mg/dL (8.6-10.3); Potassium 4.2 mmol/L (3.5-5.0)
[2021-04-25 09:51] LABS: eGFR CKD-EPI 82.9 (>60)
[2021-04-25] MEDS: ceFAZolin 2 GM PREMIX 2 GM/100 ML BAG IVPB SCH ×2 (14:54→22:58)
[2021-04-25] MEDS ORDERED: ceFAZolin 2 GM/50 ML DUPLEX BAG IVPB SCH (23:34)
[2021-04-26] MEDS ORDERED: ceFAZolin 2 GM/50 ML DUPLEX BAG IVPB SCH (06:30)
[2021-04-26] MEDS ORDERED: ceFAZolin 2 GM in NS PREMIX 2 GM/100 ML BAG IVPB SCH (06:30)
[2021-04-26] MEDS: CMC:Lactase Enzyme (NF) 3,000 UNIT TAB PO SCH ×2 (07:19→11:40)
[2021-04-26 10:45] LABS: Rapid COVID-19 Molecular Undetected (Undetected)
[2021-04-26 12:52] VITALS: BP 140/52
== END 2021-04-26 13:10 | DRG 853 ==
LOC: ED 12:10 → EDHOLD 20:44 → SUATTDRO 20:44 → SSU 04-13 02:05
PROVIDERS: ADMIT Student in an Organized Health Care Education/Training Program; ATTEND Internal Medicine

== ENCOUNTER 2021-05-18 09:14 | Inpatient (IN) ==
[2021-05-18] MEDS ORDERED: Ondansetron 4 mg VIAL 2 MG/ML 2 ml VIAL IV ONE (09:29)
[2021-05-18] MEDS ORDERED: Morphine 4 MG/ML VIAL (1 ml) IV ONE (09:29)
[2021-05-18 10:21] LABS: ABS Lymphocytes 0.6 10^3/ul (1.0-4.8); ABS Monocytes 1.3 10^3/ul (0-0.8); ABS Neutrophils 8.4 10^3/ul (1.5-7.7); ALT 231 U/L (7-52); Albumin 3.8 g/dL (3.2-5.2); Alkaline Phosphatase 515 U/L (35-149); Blood Urea Nitrogen 24 mg/dL (6-24); CO2 Carbon Dioxide 28 mmol/L (22-32); Calcium 9.9 mg/dL (8.6-10.3); Chloride 101 mmol/L (101-111); Eosinophil % 0.2 %; Globulin 3.8 g/dL (2-4); Glucose 88 mg/dL (70-100); Hematocrit 41 % (42-52); Hemoglobin 13.4 g/dL (14.0-18.0); Lymphocyte % 5.4 %; Mean Corpuscular HGB Conc 33 g/dL (31-36); Mean Corpuscular Hemoglobin 29 pg (27-31); Mean Corpuscular Volume 88 fL (80-94); Red Blood Count 4.64 10^6 /uL (4.18-5.48); Red Cell Distribution Width 17 % (10-15); Sodium 135 mmol/L (135-145); Total Protein 7.6 g/dL (6.4-8.9); White Blood Count 10.3 10^3/uL (3.5-10.8); eGFR CKD-EPI 45.8 (>60)
[2021-05-18 10:28] LABS: Anion Gap 6 mmol/L (2-11)
[2021-05-18] MEDS ORDERED: Iodixanol (CONTRAST) 320 MG/ML 100 ML SDV IV ONE (10:34)
[2021-05-18 10:57] LABS: Mean Platelet Volume 8.4 fL (7.4-10.4); Platelet Count 158 10^3/uL (150-450)
[2021-05-18 11:09] LABS: Potassium Redraw 4.3 mmol/L (3.5-5.0)
[2021-05-18] MEDS ORDERED: Lactated Ringers 1000 ml BAG 1,000 ML IV ONE (11:34)
[2021-05-18] MEDS ORDERED: Piperacillin/Tazobac ADVAN 3.375 GM in NS 0.9% 100 ml BAG 100 ML IV ONE (11:45)
[2021-05-18 12:20] LABS: Lipase 505 U/L (11.0-82.0)
[2021-05-18] MEDS ORDERED: Zosyn per Pharmacy NOTE FOLLOW UP SCH (13:00)
[2021-05-18] MEDS: NS 0.9% 1000 ml BAG 1,000 ML IV SCH ×2 (14:34→21:33)
[2021-05-18] MEDS ORDERED: Morphine 4 MG/ML VIAL (1 ml) IV PRN (15:28)
[2021-05-18] MEDS: ZOSYN 3.375 GM Q8H per EXTENDED INFUSION IV SCH (17:46)
[2021-05-18] MEDS: CMC:Lactase Enzyme (NF) 3,000 UNIT TAB PO SCH (18:16)
[2021-05-18] MEDS ORDERED: Magnesium Sulfate IV 1GM/100ML 1 GM/100 ML BAG IV ONE (20:33)
[2021-05-19] MEDS: ZOSYN 3.375 GM Q8H per EXTENDED INFUSION IV SCH ×3 (01:31→20:43)
[2021-05-19] MEDS ORDERED: Metoprolol Tartrate 5 mg VIAL 5 ml VIAL (1 mg/ml) IV PRN ×3 (02:32→09:51)
[2021-05-19 06:19] LABS: ABS Lymphocytes 0.6 10^3/ul (1.0-4.8); ABS Neutrophils 7.8 10^3/ul (1.5-7.7); Eosinophil % 0.4 %; Hematocrit 35 % (42-52); Hemoglobin 11.6 g/dL (14.0-18.0); Lymphocyte % 6.2 %; Mean Corpuscular HGB Conc 33 g/dL (31-36); Mean Corpuscular Hemoglobin 29 pg (27-31); Mean Corpuscular Volume 89 fL (80-94); Mean Platelet Volume 8.4 fL (7.4-10.4); Platelet Count 113 10^3/uL (150-450); Red Blood Count 3.97 10^6 /uL (4.18-5.48); Red Cell Distribution Width 17 % (10-15); White Blood Count 9.5 10^3/uL (3.5-10.8)
[2021-05-19 06:26] LABS: INR 1.67 (0.86-1.15)
[2021-05-19 06:35] LABS: Albumin 2.9 g/dL (3.2-5.2); Calcium 8.4 mg/dL (8.6-10.3); Globulin 2.7 g/dL (2-4); Magnesium 1.8 mg/dL (1.9-2.7); Potassium 4.1 mmol/L (3.5-5.0); Total Protein 5.6 g/dL (6.4-8.9); eGFR CKD-EPI 50.4 (>60)
[2021-05-19 06:36] LABS: Albumin/Globulin Ratio 1.1 (1-3); Total Bilirubin 9.2 mg/dL (0.2-1.0)
[2021-05-19 06:41] LABS: Digoxin 0.8 ng/ml (0.8-2.0)
[2021-05-19] MEDS ORDERED: Dextrose 50% Syringe 50 ml 25 GM/50 ML SYRINGE IV PUSH PRN (06:57)
[2021-05-19] MEDS: CMC:Lactase Enzyme (NF) 3,000 UNIT TAB PO SCH ×3 (08:50→16:31)
[2021-05-19] MEDS: Potassium Chlor 20 meq TAB.ER PO SCH (08:51)
[2021-05-19] MEDS ORDERED: Rocuronium 50 mg VIAL 10 mg/ml 5 ml VIAL (50 mg) ONE (12:03)
[2021-05-19] MEDS ORDERED: fentaNYL 100 mcg/2 ml 50 MCG/ML VIAL ONE (12:03)
[2021-05-19] MEDS ORDERED: Ondansetron 4 mg VIAL 2 MG/ML 2 ml VIAL ONE (12:04)
[2021-05-19] MEDS ORDERED: Lidocaine 2% PF 5 ML VIAL ONE (12:04)
[2021-05-19] MEDS ORDERED: Dexamethasone IV 4 MG/ML VIAL 1 ml VIAL ONE (12:04)
[2021-05-19] MEDS ORDERED: Propofol 10 MG/ML 20 ML BTL ONE (12:04)
[2021-05-19] MEDS ORDERED: Phenylephrine IV 10 MG/ML 1 ml VIAL ONE (15:50)
[2021-05-19] MEDS ORDERED: Sugammadex 500 MG/5 ML 5 ml VIAL IV PUSH ONE (16:17)
[2021-05-19] MEDS ORDERED: DiMENhydriNATE IV 50 mg/ml 1 ml VIAL IV PUSH PRN (16:41)
[2021-05-19] MEDS ORDERED: HYDROmorphone 1 MG/1 ML SYRINGE IV PRN (16:41)
[2021-05-19] MEDS ORDERED: Naloxone 0.4 mg VIAL 0.4 mg/ml 1 ml VIAL IV PRN (16:41)
[2021-05-19] MEDS ORDERED: fentaNYL 100 mcg/2 ml 50 MCG/ML VIAL IV PRN (16:41)
[2021-05-19] MEDS ORDERED: Ondansetron 4 mg VIAL 2 MG/ML 2 ml VIAL IV PRN (16:41)
[2021-05-20] MEDS: ZOSYN 3.375 GM Q8H per EXTENDED INFUSION IV SCH ×3 (01:35→17:27)
[2021-05-20] MEDS: CMC:Lactase Enzyme (NF) 3,000 UNIT TAB PO SCH ×3 (08:11→16:42)
[2021-05-20] MEDS: Potassium Chlor 20 meq TAB.ER PO SCH (08:11)
[2021-05-20 09:21] LABS: ABS Lymphocytes 0.4 10^3/ul (1.0-4.8); ABS Monocytes 0.4 10^3/ul (0-0.8); ABS Neutrophils 5.3 10^3/ul (1.5-7.7); Hematocrit 36 % (42-52); Hemoglobin 11.7 g/dL (14.0-18.0); Lymphocyte % 6.1 %; Mean Corpuscular HGB Conc 32 g/dL (31-36); Mean Corpuscular Hemoglobin 29 pg (27-31); Mean Corpuscular Volume 88 fL (80-94); Mean Platelet Volume 8.6 fL (7.4-10.4); Platelet Count 132 10^3/uL (150-450); Red Blood Count 4.11 10^6 /uL (4.18-5.48); Red Cell Distribution Width 17 % (10-15)
[2021-05-20 10:31] LABS: Albumin 2.9 g/dL (3.2-5.2); Albumin/Globulin Ratio 0.9 (1-3); Calcium 8.7 mg/dL (8.6-10.3); Globulin 3.2 g/dL (2-4); Potassium 4.6 mmol/L (3.5-5.0); Total Bilirubin 3.8 mg/dL (0.2-1.0); Total Protein 6.1 g/dL (6.4-8.9); eGFR CKD-EPI 52.5 (>60)
[2021-05-21] MEDS: ZOSYN 3.375 GM Q8H per EXTENDED INFUSION IV SCH ×3 (01:04→18:13)
[2021-05-21] MEDS: CMC:Lactase Enzyme (NF) 3,000 UNIT TAB PO SCH ×3 (08:24→18:11)
[2021-05-21] MEDS: Potassium Chlor 20 meq TAB.ER PO SCH (08:25)
[2021-05-21 10:02] LABS: ABS Lymphocytes 0.8 10^3/ul (1.0-4.8); ABS Monocytes 0.4 10^3/ul (0-0.8); ABS Neutrophils 5.8 10^3/ul (1.5-7.7); Eosinophil % 0.4 %; Hematocrit 35 % (42-52); Hemoglobin 11.4 g/dL (14.0-18.0); Lymphocyte % 11.5 %; Mean Corpuscular HGB Conc 32 g/dL (31-36); Mean Corpuscular Hemoglobin 29 pg (27-31); Mean Corpuscular Volume 90 fL (80-94); Mean Platelet Volume 8.4 fL (7.4-10.4); Nucleated Red Blood Cells % 0.1; Platelet Count 171 10^3/uL (150-450); Red Blood Count 3.94 10^6 /uL (4.18-5.48); Red Cell Distribution Width 18 % (10-15); White Blood Count 7.1 10^3/uL (3.5-10.8)
[2021-05-21 10:13] LABS: Calcium 8.8 mg/dL (8.6-10.3); Globulin 3.1 g/dL (2-4); Potassium 4.1 mmol/L (3.5-5.0); Total Bilirubin 2.3 mg/dL (0.2-1.0); Total Protein 6.1 g/dL (6.4-8.9); eGFR CKD-EPI 58.9 (>60)
[2021-05-22] MEDS: ZOSYN 3.375 GM Q8H per EXTENDED INFUSION IV SCH ×2 (01:32→09:45)
[2021-05-22] MEDS: CMC:Lactase Enzyme (NF) 3,000 UNIT TAB PO SCH ×2 (07:49→11:41)
[2021-05-22] MEDS: Potassium Chlor 20 meq TAB.ER PO SCH (07:50)
[2021-05-22 11:26] VITALS: BP 147/78
[2021-05-22] MEDS ORDERED: Magnesium Hydroxide LIQ 30 ML UDC PO ONE (12:02)
== END 2021-05-22 14:15 | DRG 444 ==
LOC: ED 09:14 → EDHOLD 12:50 → SUATTDRO 12:50 → SSU 17:05
PROVIDERS: ADMIT Student in an Organized Health Care Education/Training Program; ATTEND Hospitalist
PROC: O.GIERC (2021-05-19 15:00)

== ENCOUNTER 2022-05-29 10:23 | Inpatient (IN) ==
[2022-05-29] MEDS ORDERED: Lidocaine 4% GEL 10 GM TUBE TOPICAL ONE (10:59)
[2022-05-29] MEDS ORDERED: NS 0.9% 1000 ml BAG 1,000 ML IV ONE (11:00)
[2022-05-29] MEDS ORDERED: Cefepime 1 GM in Dextrose 1 GM/50 ML BAG IV ONE (11:31)
[2022-05-29 11:59] LABS: ABS Lymphocytes 0.6 10^3/ul (1.0-4.8); ABS Neutrophils 7.8 10^3/ul (1.5-7.7); Eosinophil % 0.2 %; Hematocrit 41 % (42-52); Hemoglobin 13.1 g/dL (14.0-18.0); Mean Corpuscular HGB Conc 32 g/dL (31-36); Mean Corpuscular Hemoglobin 29 pg (27-31); Mean Corpuscular Volume 88 fL (80-94); Mean Platelet Volume 7.8 fL (7.4-10.4); Platelet Count 137 10^3/uL (150-450); Red Blood Count 4.61 10^6 /uL (4.18-5.48); Red Cell Distribution Width 16 % (10-15); White Blood Count 9.3 10^3/uL (3.5-10.8)
[2022-05-29 12:32] LABS: Albumin 3.3 g/dL (3.2-5.2); Albumin/Globulin Ratio 1.2 (1-3); Calcium 8.1 mg/dL (8.6-10.3); Digoxin 0.6 ng/ml (0.8-2.0); Globulin 2.8 g/dL (2-4); Magnesium 1.8 mg/dL (1.9-2.7); Potassium 4.6 mmol/L (3.5-5.0); Total Bilirubin 1.3 mg/dL (0.2-1.0); Total Protein 6.1 g/dL (6.4-8.9); eGFR CKD-EPI 18.7 (>60)
[2022-05-29 13:18] LABS: INR 1.73 (0.88-1.18)
[2022-05-29] MEDS ORDERED: fentaNYL 100 mcg/2 ml 50 MCG/ML VIAL ONE (13:58)
[2022-05-29] MEDS ORDERED: Midazolam 2 mg/2 ml VIAL 1 mg/ml 2 ml VIAL (2 mg) ONE ×2 (13:58→13:59)
[2022-05-29] MEDS ORDERED: Magnesium Sulfate 2 gm BAG 2 GM/50 ML BAG IVPB ONE (16:22)
[2022-05-29 17:13] LABS: Urine Appearance Turbid; Urine Color Red; Urine Specific Gravity 1.022 (1.002-1.030)
[2022-05-29 17:16] LABS: Urine Bacteria Absent (Absent); Urine Red Blood Cell 3+(>10/hpf) (Absent); Urine White Blood Cell 1+(6-10/hpf) (Absent)
[2022-05-29] MEDS: Lactated Ringers 1000 ml BAG 1,000 ML IV SCH (17:24)
[2022-05-29] MEDS ORDERED: Digoxin IV 0.5 MG/2 ML AMP (0.25 MG/ML) IV SLOW PU ONE (20:01)
[2022-05-29] MEDS ORDERED: CALCIUM GLUCONATE 1GM/50ML NS 1 GM/50 ML BAG IV ONE (20:02)
[2022-05-30] MEDS ORDERED: Cefepime ADVAN 1 GM in NS 0.9% 50 ML 50 ML IVPB SCH (01:00)
[2022-05-30] MEDS ORDERED: Cefepime 1 GM in Dextrose 1 GM/50 ML BAG IV SCH (02:00)
[2022-05-30] MEDS: Lactated Ringers 1000 ml BAG 1,000 ML IV SCH (03:56)
[2022-05-30 07:16] LABS: Hematocrit 39 % (42-52); Hemoglobin 12.4 g/dL (14.0-18.0); Mean Corpuscular HGB Conc 32 g/dL (31-36); Mean Corpuscular Hemoglobin 28 pg (27-31); Mean Corpuscular Volume 89 fL (80-94); Mean Platelet Volume 7.6 fL (7.4-10.4); Platelet Count 125 10^3/uL (150-450); Red Cell Distribution Width 16 % (10-15); White Blood Count 7.6 10^3/uL (3.5-10.8)
[2022-05-30 07:51] LABS: Calcium 7.9 mg/dL (8.6-10.3); Magnesium 2.2 mg/dL (1.9-2.7); Potassium 4.3 mmol/L (3.5-5.0); eGFR CKD-EPI 23.4 (>60)
[2022-05-30] MEDS: Potassium Chlor 20 meq TAB.ER PO SCH (09:34)
[2022-05-30] MEDS ORDERED: Piperacillin/Tazobac ADVAN 3.375 GM in NS 0.9% 100 ml BAG 100 ML IV ONE (11:04)
[2022-05-30] MEDS ORDERED: Zosyn per Pharmacy NOTE FOLLOW UP SCH (12:00)
[2022-05-30] MEDS: ZOSYN 3.375 GM Q8H per EXTENDED INFUSION IV SCH (16:29)
[2022-05-31] MEDS: ZOSYN 3.375 GM Q8H per EXTENDED INFUSION IV SCH ×3 (03:36→18:11)
[2022-05-31] MEDS: Potassium Chlor 20 meq TAB.ER PO SCH (08:45)
[2022-05-31 09:24] LABS: Hematocrit 39 % (42-52); Hemoglobin 12.7 g/dL (14.0-18.0); Mean Corpuscular HGB Conc 32 g/dL (31-36); Mean Corpuscular Hemoglobin 29 pg (27-31); Mean Corpuscular Volume 89 fL (80-94); Mean Platelet Volume 7.6 fL (7.4-10.4); Platelet Count 127 10^3/uL (150-450); Red Blood Count 4.42 10^6 /uL (4.18-5.48); Red Cell Distribution Width 16 % (10-15); White Blood Count 7.3 10^3/uL (3.5-10.8)
[2022-05-31 09:51] LABS: Calcium 7.9 mg/dL (8.6-10.3); Digoxin 0.8 ng/ml (0.8-2.0); Potassium 4.3 mmol/L (3.5-5.0); eGFR CKD-EPI 30.5 (>60)
[2022-06-01] MEDS: ZOSYN 3.375 GM Q8H per EXTENDED INFUSION IV SCH ×3 (00:50→17:15)
[2022-06-01 07:16] LABS: ABS Eosinophils 0.3 10^3/ul (0-0.6); ABS Lymphocytes 0.9 10^3/ul (1.0-4.8); ABS Monocytes 1.1 10^3/ul (0-0.8); ABS Neutrophils 5.2 10^3/ul (1.5-7.7); Eosinophil % 4.4 %; Hematocrit 39 % (42-52); Hemoglobin 12.7 g/dL (14.0-18.0); Lymphocyte % 12.3 %; Mean Corpuscular HGB Conc 33 g/dL (31-36); Mean Corpuscular Hemoglobin 29 pg (27-31); Mean Corpuscular Volume 89 fL (80-94); Mean Platelet Volume 7.6 fL (7.4-10.4); Platelet Count 135 10^3/uL (150-450); Red Blood Count 4.43 10^6 /uL (4.18-5.48); Red Cell Distribution Width 16 % (10-15); White Blood Count 7.6 10^3/uL (3.5-10.8)
[2022-06-01 07:28] LABS: Calcium 7.9 mg/dL (8.6-10.3); Magnesium 1.9 mg/dL (1.9-2.7); Potassium 4.7 mmol/L (3.5-5.0)
[2022-06-01 07:34] LABS: Phosphorus 3.2 mg/dL (2.5-5.0); eGFR CKD-EPI 29.7 (>60)
[2022-06-01] MEDS: Potassium Chlor 20 meq TAB.ER PO SCH (09:24)
[2022-06-02] MEDS: ZOSYN 3.375 GM Q8H per EXTENDED INFUSION IV SCH ×4 (00:03→11:27)
[2022-06-02 06:48] LABS: Calcium 7.9 mg/dL (8.6-10.3); Potassium 4.6 mmol/L (3.5-5.0); eGFR CKD-EPI 28.5 (>60)
[2022-06-02] MEDS ORDERED: Lactated Ringers 1000 ml BAG 1,000 ML IV SCH (08:00)
[2022-06-02 08:07] LABS: Magnesium 1.8 mg/dL (1.9-2.7)
[2022-06-02] MEDS ORDERED: Sulfur Hexaflouride MICROSPHR 25 MG VIAL ONE (08:30)
[2022-06-02] MEDS ORDERED: Magnesium Sulfate 2 gm BAG 2 GM/50 ML BAG IVPB ONE (08:47)
[2022-06-02] MEDS: Potassium Chlor 20 meq TAB.ER PO SCH (09:10)
[2022-06-02] MEDS ORDERED: Polyethylene Glycol 3350 17 GM PACKET PO ONE (09:38)
[2022-06-02] MEDS: Amoxicillin/Clavul 875/125 TAB (Augmentin 875 tab) PO SCH ×2 (11:55→21:12)
[2022-06-03 06:05] LABS: Rapid COVID-19 Molecular Undetected (Undetected)
[2022-06-03] MEDS ORDERED: Magnesium Sulfate 2 gm BAG 2 GM/50 ML BAG IVPB ONE (07:14)
[2022-06-03 07:22] LABS: Calcium 8.1 mg/dL (8.6-10.3); eGFR CKD-EPI 36.1 (>60)
[2022-06-03 07:30] LABS: Potassium 5.2 mmol/L (3.5-5.0)
[2022-06-03] MEDS: Amoxicillin/Clavul 875/125 TAB (Augmentin 875 tab) PO SCH (08:14)
[2022-06-03] MEDS: Potassium Chlor 20 meq TAB.ER PO SCH (08:15)
[2022-06-03] MEDS ORDERED: Magnesium CITRATE LIQ 300 ML BTL PO ONE (10:56)
[2022-06-03 11:42] VITALS: BP 113/72
[2022-06-03] MEDS ORDERED: Magnesium Hydroxide LIQ 30 ML UDC PO ONE (12:00)
== END 2022-06-03 14:30 | DRG 683 ==
LOC: ED 10:23 → SUATTDRO 13:51 → EDHOLD 13:51 → MEDTELE 21:00
PROVIDERS: ADMIT Internal Medicine; ATTEND Hospitalist

== ENCOUNTER 2023-01-13 11:51 | Inpatient (IN) ==
[2023-01-13] MEDS ORDERED: Morphine 4 MG/ML VIAL (1 ml) IV ONE (13:28)
[2023-01-13 14:43] LABS: ABS Lymphocytes 0.9 10^3/uL (1.0-4.8); ABS Monocytes 1.3 10^3/uL (0.0-1.1); ABS Neutrophils 16.2 10^3/uL (1.5-7.6); ABS Nucleated RBC 0.04 10^3/ul; Eosinophil % 0.2 %; Hematocrit 44.5 % (38-53); Hemoglobin 14.8 g/dL (13.2-16.3); Lymphocyte % 4.6 %; Mean Corpuscular Hemoglobin 28.9 pg (27-33); Mean Corpuscular Hgb Conc 33.3 g/dL (31-36); Mean Corpuscular Volume 86.8 fL (80-97); Mean Platelet Volume 7.4 fL (7.5-11.2); Nucleated Red Blood Cells % 0.2 /100 WBC (0.0-0.4); Platelet Count 193 10^3/uL (150-450); Red Blood Count 5.12 10^6/uL (4.06-5.63); Red Cell Distribution Width 16.4 % (12-17); White Blood Count 18.4 10^3/uL (3.6-10.2)
[2023-01-13] MEDS: NS 0.9% 1000 ml BAG 1,000 ML IV SCH (14:53)
[2023-01-13 14:57] LABS: Activated Partial Thrombo Time 39.5 seconds (26.0-38.0); INR 1.53 (0.83-1.13)
[2023-01-13 15:09] LABS: Albumin/Globulin Ratio 1.1 (1-3); C Reactive Protein 11.71 mg/L (<8.01); Calcium 9.4 mg/dL (8.6-10.3); Creatinine, Serum 2.13 mg/dL (0.67-1.17); Globulin 3.6 g/dL (2-4); Magnesium 1.8 mg/dL (1.9-2.7); Potassium 4.8 mmol/L (3.5-5.0); Total Bilirubin 0.8 mg/dL (0.2-1.0); Total Protein 7.6 g/dL (6.4-8.9); eGFR CKD-EPI 31.9 (>60)
[2023-01-13] MEDS ORDERED: Piperacillin/Tazobac 3.375 BAG 3.375 GM/100 ML BAG IV ONE (15:57)
[2023-01-13] MEDS ORDERED: fentaNYL 100 mcg/2 ml 50 MCG/ML VIAL ONE ×2 (16:29)
[2023-01-13] MEDS ORDERED: Magnesium Sulfate 2 gm BAG 2 GM/50 ML BAG IVPB ONE (19:23)
[2023-01-14] MEDS: NS 0.9% 1000 ml BAG 1,000 ML IV SCH (05:29)
[2023-01-14 06:53] LABS: Hematocrit 37.5 % (38-53); Hemoglobin 12.8 g/dL (13.2-16.3); Mean Corpuscular Hemoglobin 29.5 pg (27-33); Mean Corpuscular Hgb Conc 34.1 g/dL (31-36); Mean Corpuscular Volume 86.6 fL (80-97); Mean Platelet Volume 7.6 fL (7.5-11.2); Platelet Count 157 10^3/uL (150-450); Red Blood Count 4.34 10^6/uL (4.06-5.63); Red Cell Distribution Width 16.7 % (12-17); White Blood Count 12.1 10^3/uL (3.6-10.2)
[2023-01-14 07:16] LABS: Calcium 8.1 mg/dL (8.6-10.3); Creatinine, Serum 2.42 mg/dL (0.67-1.17); Magnesium 2.1 mg/dL (1.9-2.7); Potassium 4.2 mmol/L (3.5-5.0); eGFR CKD-EPI 27.3 (>60)
[2023-01-14 07:23] LABS: Digoxin 0.9 ng/ml (0.8-2.0)
[2023-01-14] MEDS: CMCS:Lactase Enzyme (NF) 3,000 UNIT TAB PO SCH ×3 (07:43→16:32)
[2023-01-14] MEDS: cefTRIAXone 1 gm/50 mL D5W 1 GM/50 ML BAG IV SCH (15:40)
[2023-01-15 06:04] LABS: ABS Eosinophils 0.2 10^3/uL (0.0-0.5); ABS Lymphocytes 1.1 10^3/uL (1.0-4.8); ABS Monocytes 0.8 10^3/uL (0.0-1.1); ABS Neutrophils 5.4 10^3/uL (1.5-7.6); Eosinophil % 2.8 %; Hematocrit 36.9 % (38-53); Hemoglobin 12.4 g/dL (13.2-16.3); Lymphocyte % 14.4 %; Mean Corpuscular Hemoglobin 29.2 pg (27-33); Mean Corpuscular Hgb Conc 33.5 g/dL (31-36); Mean Corpuscular Volume 87.1 fL (80-97); Mean Platelet Volume 7.6 fL (7.5-11.2); Nucleated Red Blood Cells % 0.1 /100 WBC (0.0-0.4); Platelet Count 139 10^3/uL (150-450); Red Blood Count 4.24 10^6/uL (4.06-5.63); Red Cell Distribution Width 16.8 % (12-17); White Blood Count 7.6 10^3/uL (3.6-10.2)
[2023-01-15 06:17] LABS: Calcium 8.3 mg/dL (8.6-10.3); Creatinine, Serum 2.43 mg/dL (0.67-1.17); eGFR CKD-EPI 27.2 (>60)
[2023-01-15] MEDS: CMCS:Lactase Enzyme (NF) 3,000 UNIT TAB PO SCH ×3 (10:30→16:54)
[2023-01-15 11:26] LABS: Urine Appearance Turbid; Urine Bilirubin Negative (Negative); Urine Blood 2+ (Negative); Urine Color Yellow; Urine Glucose Negative (Negative); Urine Ketones Negative (Negative); Urine Nitrite Negative (Negative); Urine Protein Negative (Negative); Urine Urobilinogen Negative (Negative)
[2023-01-15 11:33] LABS: Urine Creatinine Concentration 89.89 mg/dL (20.00-370.00)
[2023-01-15 11:37] LABS: Urine Bacteria 1+ (Absent); Urine Red Blood Cell 2+(6-10/hpf) (Absent); Urine Squamous Epithelial Cell Present (Absent); Urine White Blood Cell 3+(>20/hpf) (Absent)
[2023-01-15] MEDS ORDERED: D5W 500 ml BAG 500 ML IV ONE (11:59)
[2023-01-15] MEDS ORDERED: D5W 1000 ml BAG 500 ML IV ONE (14:00)
[2023-01-15] MEDS: cefTRIAXone 1 gm/50 mL D5W 1 GM/50 ML BAG IV SCH (14:07)
[2023-01-16 06:58] LABS: Calcium 8.2 mg/dL (8.6-10.3); Creatinine, Serum 2.72 mg/dL (0.67-1.17); Potassium 4.3 mmol/L (3.5-5.0); eGFR CKD-EPI 23.8 (>60)
[2023-01-16 07:08] LABS: ABS Eosinophils 0.2 10^3/uL (0.0-0.5); ABS Monocytes 0.8 10^3/uL (0.0-1.1); ABS Neutrophils 4.1 10^3/uL (1.5-7.6); ABS Nucleated RBC 0.01 10^3/ul; Eosinophil % 3.5 %; Hematocrit 37.6 % (38-53); Hemoglobin 12.6 g/dL (13.2-16.3); Lymphocyte % 16.4 %; Mean Corpuscular Hemoglobin 29.1 pg (27-33); Mean Corpuscular Hgb Conc 33.4 g/dL (31-36); Mean Corpuscular Volume 86.9 fL (80-97); Mean Platelet Volume 7.7 fL (7.5-11.2); Nucleated Red Blood Cells % 0.2 /100 WBC (0.0-0.4); Platelet Count 142 10^3/uL (150-450); Red Blood Count 4.33 10^6/uL (4.06-5.63); Red Cell Distribution Width 16.8 % (12-17); White Blood Count 6.2 10^3/uL (3.6-10.2)
[2023-01-16 08:21] LABS: C Reactive Protein 92.89 mg/L (<8.01)
[2023-01-16] MEDS: CMCS:Lactase Enzyme (NF) 3,000 UNIT TAB PO SCH ×3 (09:03→19:26)
[2023-01-16] MEDS ORDERED: Furosemide 20 mg/2 ml IV VIAL IV SLOW PU ONE (11:04)
[2023-01-16 13:31] LABS: Urine Appearance Cloudy; Urine Bilirubin Negative (Negative); Urine Blood 3+ (Negative); Urine Color Yellow; Urine Glucose Negative (Negative); Urine Ketones Negative (Negative); Urine Nitrite Negative (Negative); Urine Protein 1+(30 mg/dL) (Negative); Urine Specific Gravity 1.031 (1.002-1.030); Urine Urobilinogen Negative (Negative)
[2023-01-16 13:34] LABS: Urine Bacteria 1+ (Absent); Urine Red Blood Cell 3+(>10/hpf) (Absent); Urine White Blood Cell 2+(11-20/hpf) (Absent)
[2023-01-16] MEDS: cefTRIAXone 1 gm/50 mL D5W 1 GM/50 ML BAG IV SCH (14:47)
[2023-01-16 16:03] LABS: Calcium 8.8 mg/dL (8.6-10.3); Creatinine, Serum 2.8 mg/dL (0.67-1.17); Potassium 4.7 mmol/L (3.5-5.0)
[2023-01-16] MEDS: D5W 1/2 NS 1000 ml BAG 1,000 ML IV SCH (19:26)
[2023-01-17 06:39] LABS: ABS Eosinophils 0.3 10^3/uL (0.0-0.5); ABS Monocytes 0.8 10^3/uL (0.0-1.1); ABS Neutrophils 4.1 10^3/uL (1.5-7.6); Hematocrit 36.2 % (38-53); Hemoglobin 12.3 g/dL (13.2-16.3); Lymphocyte % 16.5 %; Mean Corpuscular Hemoglobin 29.4 pg (27-33); Mean Corpuscular Hgb Conc 34.1 g/dL (31-36); Mean Corpuscular Volume 86.3 fL (80-97); Mean Platelet Volume 7.2 fL (7.5-11.2); Platelet Count 162 10^3/uL (150-450); Red Blood Count 4.19 10^6/uL (4.06-5.63); Red Cell Distribution Width 16.4 % (12-17); White Blood Count 6.3 10^3/uL (3.6-10.2)
[2023-01-17 06:55] LABS: Calcium 8.1 mg/dL (8.6-10.3); Creatinine, Serum 3.16 mg/dL (0.67-1.17); Magnesium 1.9 mg/dL (1.9-2.7); Potassium 4.1 mmol/L (3.5-5.0); eGFR CKD-EPI 19.9 (>60)
[2023-01-17] MEDS: CMCS:Lactase Enzyme (NF) 3,000 UNIT TAB PO SCH ×3 (07:58→16:57)
[2023-01-17] MEDS: cefTRIAXone 1 gm/50 mL D5W 1 GM/50 ML BAG IV SCH (14:04)
[2023-01-17] MEDS: D5W 1/2 NS 1000 ml BAG 1,000 ML IV SCH (20:03)
[2023-01-18 06:29] LABS: ABS Eosinophils 0.3 10^3/uL (0.0-0.5); ABS Lymphocytes 1.2 10^3/uL (1.0-4.8); ABS Monocytes 0.8 10^3/uL (0.0-1.1); Hematocrit 37.1 % (38-53); Hemoglobin 12.3 g/dL (13.2-16.3); Lymphocyte % 19.5 %; Mean Corpuscular Hemoglobin 28.9 pg (27-33); Mean Corpuscular Hgb Conc 33.2 g/dL (31-36); Mean Corpuscular Volume 87.1 fL (80-97); Mean Platelet Volume 7.2 fL (7.5-11.2); Platelet Count 161 10^3/uL (150-450); Red Blood Count 4.26 10^6/uL (4.06-5.63); Red Cell Distribution Width 16.1 % (12-17); White Blood Count 6.3 10^3/uL (3.6-10.2)
[2023-01-18 06:50] LABS: C Reactive Protein 61.45 mg/L (<8.01); Calcium 8.1 mg/dL (8.6-10.3); Creatinine, Serum 3.44 mg/dL (0.67-1.17); Potassium 4.5 mmol/L (3.5-5.0); eGFR CKD-EPI 17.9 (>60)
[2023-01-18] MEDS: CMCS:Lactase Enzyme (NF) 3,000 UNIT TAB PO SCH ×3 (07:48→16:29)
[2023-01-18] MEDS: cefTRIAXone 1 gm/50 mL D5W 1 GM/50 ML BAG IV SCH (14:55)
[2023-01-19 05:29] LABS: ABS Basophils 0.1 10^3/uL (0.0-0.1); ABS Eosinophils 0.3 10^3/uL (0.0-0.5); ABS Lymphocytes 1.4 10^3/uL (1.0-4.8); ABS Monocytes 0.7 10^3/uL (0.0-1.1); ABS Neutrophils 4.2 10^3/uL (1.5-7.6); ABS Nucleated RBC 0.01 10^3/ul; Eosinophil % 4.2 %; Hematocrit 36.4 % (38-53); Hemoglobin 12.3 g/dL (13.2-16.3); Lymphocyte % 21.1 %; Mean Corpuscular Hgb Conc 33.7 g/dL (31-36); Mean Platelet Volume 7.1 fL (7.5-11.2); Nucleated Red Blood Cells % 0.1 /100 WBC (0.0-0.4); Platelet Count 179 10^3/uL (150-450); Red Blood Count 4.23 10^6/uL (4.06-5.63); Red Cell Distribution Width 16.2 % (12-17); White Blood Count 6.7 10^3/uL (3.6-10.2)
[2023-01-19 05:33] LABS: INR 1.5 (0.83-1.13)
[2023-01-19 05:43] LABS: Albumin 3.2 g/dL (3.2-5.2); Albumin/Globulin Ratio 0.9 (1-3); Calcium 8.3 mg/dL (8.6-10.3); Creatinine, Serum 3.56 mg/dL (0.67-1.17); Globulin 3.4 g/dL (2-4); Potassium 4.9 mmol/L (3.5-5.0); Total Bilirubin 0.4 mg/dL (0.2-1.0); Total Protein 6.6 g/dL (6.4-8.9); eGFR CKD-EPI 17.2 (>60)
[2023-01-19] MEDS: CMCS:Lactase Enzyme (NF) 3,000 UNIT TAB PO SCH ×3 (09:17→17:29)
[2023-01-19] MEDS: cefTRIAXone 1 gm/50 mL D5W 1 GM/50 ML BAG IV SCH (15:00)
[2023-01-20 06:29] LABS: ABS Basophils 0.1 10^3/uL (0.0-0.1); ABS Eosinophils 0.3 10^3/uL (0.0-0.5); ABS Lymphocytes 1.7 10^3/uL (1.0-4.8); ABS Monocytes 0.6 10^3/uL (0.0-1.1); ABS Nucleated RBC 0.01 10^3/ul; Eosinophil % 4.2 %; Hematocrit 37.8 % (38-53); Hemoglobin 12.6 g/dL (13.2-16.3); Lymphocyte % 25.2 %; Mean Corpuscular Hemoglobin 28.8 pg (27-33); Mean Corpuscular Hgb Conc 33.4 g/dL (31-36); Mean Corpuscular Volume 86.3 fL (80-97); Mean Platelet Volume 7.1 fL (7.5-11.2); Nucleated Red Blood Cells % 0.1 /100 WBC (0.0-0.4); Platelet Count 202 10^3/uL (150-450); Red Blood Count 4.38 10^6/uL (4.06-5.63); Red Cell Distribution Width 15.9 % (12-17); White Blood Count 6.6 10^3/uL (3.6-10.2)
[2023-01-20 06:44] LABS: C Reactive Protein 45.13 mg/L (<8.01); Calcium 8.6 mg/dL (8.6-10.3); Creatinine, Serum 3.11 mg/dL (0.67-1.17); Magnesium 2.1 mg/dL (1.9-2.7); Potassium 4.5 mmol/L (3.5-5.0); eGFR CKD-EPI 20.2 (>60)
[2023-01-20] MEDS: CMCS:Lactase Enzyme (NF) 3,000 UNIT TAB PO SCH ×2 (09:13→12:11)
[2023-01-20] MEDS ORDERED: fentaNYL 100 mcg/2 ml 50 MCG/ML VIAL ONE (10:37)
[2023-01-20] MEDS ORDERED: cefTRIAXone 1 gm/50 mL D5W 1 GM/50 ML BAG IV SCH (12:00)
[2023-01-20 12:06] VITALS: BP 138/88
[2023-01-20 13:15] LABS: Rapid COVID-19 Molecular Undetected (Undetected)
== END 2023-01-20 17:39 | DRG 698 ==
LOC: ED 11:51 → EDHOLD 11:51 → SUATTDRO 16:57 → MEDTELE 22:26
PROVIDERS: ADMIT Internal Medicine; ATTEND Internal Medicine